=== PATIENT | female | born 1995 | race Caucasian/White ===

== ENCOUNTER 2018-04-22 23:08 | Emergency (ER) | payer SELFPAY ==
[2018-04-22 23:08] VITALS: BP 110/56; PULSE 56; RESP 20; TEMP 36.8; O2SAT 99; BMI 28.5
--- NOTE | 2018-04-22 23:21 | ED.VISSUMM ---
- ER Visit Summary Date of Service: 04/22/18 Chief Complaint: Abscess, wound check History of Present Illness: The patient is a 22 F L for worsening erythema around the abscess today. States started out as mosquito bite, scratching it. This started 4 days ago. Saw the urgent care today status post incision and drainage. States there was a lot of pus. She states wound cultures were collected. As outlined. She started on Keflex and Bactrim. She is taking 2 doses of each. States had a fever 101 at urgent care. Was told if redness past the lines to go to the ED for evaluation. No previous similar symptoms. Patient is not a diabetic. No immunosuppressants. Denies IV drug use. No history of similar. States still draining. No fevers since initially evaluated. Did take Tylenol and Motrin at around 4 PM, 7 hours ago. Physical Examination: General: Alert and oriented ?3, no acute distress HEENT: Normocephalic, atraumatic. Moist mucosa membranes Neck: supple, nontender. Cardiovascular: Regular rate and rhythm, no murmurs Respiratory: Normal breath sounds, symmetric, no distress Abdomen: Soft, nontender, nondistended Extremities: Nontender, no edema, pulses intact ?4 Neuro: no focal neurological deficits. Skin: Left hip: Straight incision noted, no active drainage. Erythema past the initial line. Proximal 10 x 8 cm. No streaking. Test Results: WBC 18. Creatinine 1.01. Emergency Department Course and Treatment: Patient nontoxic. Afebrile. There is worsening erythema from incision and drainage. I did check labs, she given 1 dose of vancomycin. White count was 18. She did have slight red man syndrome from the vancomycin. There is no lip or tongue swelling. Symptoms resolved. Reevaluation slight erythema past the inferior aspect of the line. Nothing superior. Patient nontoxic. No risk factors. Discussed with patient and mother, appropriate to continue medicines for another day, if symptoms worsen becomes febrile to return for reevaluation and expect admission at that time. Patient understands and agrees with plan. Declined any additional pain medicines. Should continue Tylenol and Motrin. All questions were answered. Treatment Plan: [] Disposition: Discharge Impression: 1. Left hip cellulitis 2. Wound check This note was generated with [employer] software. It may contain incorrect words, spelling, and punctuation that were not noted in review of the chart prior to signing ED Disposition - Plan for ED Patient: Disposition: Home or Assisted Living Chief Complaint: Abscess Diagnosis: Cellulitis of left hip, Encounter for evaluation of wound Instructions: ED Infec Skin Cellulitis Referrals: Ty Krause MD [Primary Care Provider] - 2 Days for wound check Additional Instructions: Continue your current antibiotics. Fevers develop or worsening redness moving upwards, return for reevaluation.
[2018-04-22 23:50] LABS: Absolute Lymphocyte Count 1.82 X10^3/ul (0.83-4.51); Absolute Neutrophil Count 13.8 X10^3/uL (2.0-7.7); Basophil# 0.05 X10^3/uL; Basophil% 0.3 % (0-1); Eosinophils% 0.6 % (0-5); Hematocrit 41.3 % (37-47); Hemoglobin 13.7 g/dl (12.0-15.0); Lymphocyte # 1.82 X10^3/ul (4.0); Lymphocyte % 10.1 % (19-41); Mean Corp Hgb Conc 33.2 g/gl (32-36); Mean Corpuscular Hgb 28.4 pg (27.0-32.0); Mean Corpuscular Volume 85.5 fL (81-99); Mean Platelet Vol. 9.7 fl (6.2-12.0); Monocyte# 2.18 X10^3/uL; Monocyte% 12.1 % (0-10); Neutrophil # 13.78 X10^3/uL (2.7-7.7); Neutrophil % 76.6 % (47-70); Platelet Count 267 K/mm3 (150-450); RBC Distribution Width CV 13.4 % (11.6-14.6); RBC Distribution Width SD 41.9 fl (35.1-43.9); Red Blood Count 4.83 M/mm3 (4.2-5.4)
[2018-04-22 23:52] LABS: Differential Indicated SCAN CRITERIA MET; POSITIVE COUNT NO; POSITIVE DIFFERENTIAL YES; POSITIVE MORPHOLOGY NO
[2018-04-23 00:01] LABS: Anion Gap 9 (5-15); BUN 22 mg/dL (7-18); BUN/Creat Ratio 21.8 RATIO (10-20); Calcium,Total 8.8 mg/dL (8.5-10.1); Chloride 103 mmol/L (98-107); Creatinine, Serum 1.01 mg/dL (0.55-1.02); Differential Comment SCANNED; EST Glomerular Filtration Rate 72 mL/min (>60); Est Glom Filt Rate - Afr Amer 88 mL/min (>60); Estimated Creatinine Clearance 72.27 ml/min; Glucose 104 mg/dL (74-106); Potassium 3.6 mmol/L (3.5-5.1); Sodium Level 137 mmol/L (136-145)
[2018-04-23 02:13] VITALS: BP 110/62; PULSE 83; RESP 16; O2SAT 99
[2018-04-24 08:05] LABS: Pathologist Review Reviewed
== END 2018-04-23 02:13 | disposition home or self-care (01) ==
PROVIDERS: Emergency Provider Emergency Medicine; Family Provider Family Medicine; PCP Family Medicine
DX: L03.116 Cellulitis of left lower limb (principal)
CPT/HCPCS: 80048; 85025; 96365; 96366; 99283; J7030

== ENCOUNTER 2018-04-23 19:04 | Inpatient (IN) | payer SELFPAY ==
[2018-04-23 19:04] VITALS: BP 119/63; PULSE 81; RESP 20; TEMP 36.8; O2SAT 98; BMI 28.3
[2018-04-23] MEDS: 0.9% Normal Saline 1,000 ML 150 ML IV (19:39)
[2018-04-23 19:50] LABS: Absolute Lymphocyte Count 1.56 X10^3/ul (0.83-4.51); Absolute Neutrophil Count 7.6 X10^3/uL (2.0-7.7); Basophil# 0.06 X10^3/uL; Basophil% 0.6 % (0-1); Eosinophil# 0.17 X10^3/uL; Eosinophils% 1.6 % (0-5); Hematocrit 39.2 % (37-47); Hemoglobin 13.1 g/dl (12.0-15.0); Lymphocyte # 1.56 X10^3/ul (4.0); Lymphocyte % 14.7 % (19-41); Mean Corp Hgb Conc 33.4 g/gl (32-36); Mean Corpuscular Hgb 28.5 pg (27.0-32.0); Mean Corpuscular Volume 85.2 fL (81-99); Mean Platelet Vol. 10.1 fl (6.2-12.0); Monocyte# 1.17 X10^3/uL; Neutrophil # 7.63 X10^3/uL (2.7-7.7); Neutrophil % 71.8 % (47-70); Platelet Count 247 K/mm3 (150-450); RBC Distribution Width CV 13.3 % (11.6-14.6); RBC Distribution Width SD 41.1 fl (35.1-43.9); White Blood Count 10.6 K/mm3 (4.4-11.0)
[2018-04-23 19:56] VITALS: BMI 28.3
[2018-04-23 19:59] LABS: POSITIVE COUNT NO; POSITIVE DIFFERENTIAL NO; POSITIVE MORPHOLOGY NO
[2018-04-23 20:08] LABS: Anion Gap 8 (5-15); BUN 17 mg/dL (7-18); BUN/Creat Ratio 17.7 RATIO (10-20); Calcium,Total 8.8 mg/dL (8.5-10.1); Chloride 105 mmol/L (98-107); Creatinine, Serum 0.96 mg/dL (0.55-1.02); EST Glomerular Filtration Rate 77 mL/min (>60); Est Glom Filt Rate - Afr Amer 93 mL/min (>60); Estimated Creatinine Clearance 76.04 ml/min; Glucose 90 mg/dL (74-106); Sodium Level 137 mmol/L (136-145)
--- NOTE | 2018-04-23 20:14 | PCM.HP.STD ---
Problem List (1) Cellulitis of the left lateral thigh Status: Acute History of Present Illness Date of Admission: 04/23/18 Chief Complaint: Cellulitis of the left lateral thigh The patient is a 22 year old F who was seen in the emergency room at [facility] with chief complaint of increased redness over an area of cellulitis that she had diagnosed and seen her PCP on 04/22/18. Patient stated that she noticed pain in the area over her left lateral thigh the day before, she went to urgent care on 04/22/2018 and at that time the area over her left lateral thigh was reddened and tender to palpation, a nurse practitioner working at the urgent care performed incision and drainage of the area and got cultures. She was placed on Keflex and Bactrim, the area became more painful and she was seen in the emergency room last night and given IV vancomycin. Today she states the reddened area over her left lateral thigh has enlarged, she denies any fevers or chills. Evaluation in the emergency room revealed a normal white blood cell count, patient is afebrile, chemistry profile is unremarkable. Examination of the left lateral thigh area reveals a large area of redness over her left lateral thigh, central to this area is a draining small incision, there is serosanguineous drainage noted on her bandage. The area is tender to palpation but there is minimal induration of the entire area. Patient will be admitted for cellulitis of the left thigh, she will be placed on IV Ancef, emergency room physician gave the patient IV clindamycin. The patient's culture should be available from [facility] tomorrow, I will do a nasal screen for MRSA tonight. 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 Lives: With Family Smoking Status: Never smoker Tobacco Use: Non-smoker Alcohol: None Drugs: None - *Family History Maternal History Items: Cancer - of breast cancer Paternal History Items: Heart Disease Review of Systems Constitutional: Denies: Anorexia, Chills, Fever, Night Sweats, Malaise, Weakness, Weight Change, Fatigue Eyes: Denies: Blurred vision, Cataracts, Conjunctivae Inflammation, Double vision HEENT: Denies: Difficulty Hearing, Difficulty Swallowing, Dysphasia, Ear Pain, Eye Pain, Hearing Changes, Nasal bleeding, Nasal Congestion, Post Nasal Drip Cardiovascular: Denies: Chest Pain, Claudication, Chest Pressure, Chest Tightness, Edema Respiratory: Denies: Cough, Hemoptysis, Pleuritic Pain, Shortness of Breath Gastrointestinal: Denies: Abdominal Pain, Constipation, Diarrhea, Dyspepsia Genitourinary: Denies: Dysuria, Frequency, Hematuria Gynecological: Denies: Breast symptoms Musculoskeletal: Denies: Back Pain, Foot Pain, Hand Pain, Joint stiffness, Joint Tenderness Skin: Reports: Rash - Patient complains of a rash over her left lateral thigh, Wounds - Admits to small puncture wound on the left thigh from yesterday's I&D Neurological: Denies: Balance problems, Blurred vision, Double vision, Change in Speech, Difficulty swallowing, Focal weakness, Headaches, Incoordination Psychiatric: Denies: Anxiety, Depression Endocrine: Denies: Change in Body Habitus, Heat/ Cold Intolerance, Polydipsia, Polyuria VTE Information - Inpt Only VTE Present on Admission: No VTE Mechan Device Prophylaxis: None VTE Pharm Prophylaxis ordered?: No Reason prophylaxis not ordered:: Treatment Not Indicated - low risk for VTE Patient Problems: Active and Suspected Problems Cellulitis of the left lateral thigh (Acute) - Physical Exam General: Alert, Oriented x3, Cooperative, No apparent distress, Well developed, Well nourished HEENT: Atraumatic, PERRLA, EOMI, Normocephalic Oral: Moist Mucosa Neck: Supple, No JVD, No Nuchal Rigidity, Trachea Midline, Thyroid Normal Size and Texture Lungs: Clear to auscultation, Normal air movement, No rhonchi, No wheeze, No rales Cardiovascular: Regular rate, Regular Rhythm, Normal S1, Normal S2, No murmurs, No Ectopic Activity, PMI Normal, No rub noted, No Gallop Abdomen: Bowel Sounds Present, Soft, Non Tender, Non-Distended, No hernias noted Extremities: No clubbing, No cyanosis, No edema, Capillary Refill Less than 3 Seconds Skin: Ulcer/ Wound - There is a small puncture wound present over the patient's left lateral thigh area, this is draining serosanguineous fluid, - - There is a large area of rash over the patient's left lateral thigh area-this area is approximately 10 cm in length by 6 cm in diameter, the area is not indurated Musculoskeletal: No Tenderness to Palpation of Joints or Extremities Neurological: Cranial nerves II-XII grossly intact, Neuro grossly intact, Sensory exam intact to light touch and pain, Coordination normal Psych/Mental Status: Normal Affect, Appropriate, Alert and oriented to time, place, person, mood and affect Vital Signs Temp Pulse Resp BP Pulse Ox 98.2 F 81 20 H 119/63 98 04/23/18 19:04 04/23/18 19:04 04/23/18 19:04 04/23/18 19:04 04/23/18 19:04 Oxygen Delivery Method Room Air Weight: 72.575 kg Body Mass Index (BMI) 28.3 Laboratory Tests Past 24 Hrs 04/23/18 04/23/18 04/23/18 19:39 19:39 19:39 WBC 10.6 RBC 4.60 Hgb 13.1 Hct 39.2 MCV 85.2 MCH 28.5 MCHC 33.4 RDW 13.3 RDW Differential 41.1 Plt Count 247 MPV 10.1 Immature Gran % (Auto) 0.300 Neut % (Auto) 71.8 H Lymph % (Auto) 14.7 L [place] % (Auto) 11.0 H Eos % (Auto) 1.6 Baso % (Auto) 0.6 Absolute Neuts (auto) 7.6 Absolute Lymphs (auto) 1.56 Total Counted Not Reportable Sodium 137 Potassium 4.0 Chloride 105 Carbon Dioxide 24.0 Anion Gap 8 BUN 17 Creatinine 0.96 Estim Creat Clear Calc 76.04 Est GFR (MDRD) Af Amer 93 Est GFR (MDRD) Non-Af 77 BUN/Creatinine Ratio 17.7 Glucose 90 Calcium 8.8 Serum , Qual Pending Assessment/Plan All Active Problems Cellulitis of left hip (Acute) Encounter for evaluation of wound (Acute) Cellulitis of the left lateral thigh (Acute) #1 cellulitis of the left thigh-probably either secondary to MSSA or strep-patient will be admitted to medical surgical floor, she will be given IV Ancef, cultures to be available tomorrow from her outpatient urgent care. Patient will have nasal swab for MRSA, if this is positive, antibiotics may need to be changed. Code Visit Inpatient E&M: 12803 Init Hosp L3
--- NOTE | 2018-04-23 20:19 | ED.VISSUMM ---
- ER Visit Summary Date of Service: 04/23/18 Chief Complaint: Abscess History of Present Illness: The patient is a 22 F with a bug bite to her left proximal thigh approximately 5 days ago. She was seen at urgent care yesterday morning where an I&D was performed, culture sent, and she was started on Bactrim and Keflex. Patient was seen in the ER last night due to worsening redness and was given a dose of IV vancomycin. Per documentation patient developed diffuse erythema after the vancomycin which did resolve with stopping the antibiotic. Patient continued her Bactrim and Keflex today but the erythema that is previously been outlined has continued to spread. She is advised to return for IV antibiotics and admission. Patient has noted fever throughout this illness but states she feels that that is improving today as well. Physical Examination: Vital signs are unremarkable. Patient is afebrile at 98.2. Patient is in no acute distress and nontoxic appearing. Heart is regular rate and rhythm. No lung sounds are clear. Abdomen is soft nontender. Left thigh examination reveals a 1 cm incision of the proximal thigh with mild drainage. There is 20 x 22 cm area of surrounding cellulitis. Test Results: CBC was a white count of 10.6 with 72% neutrophils. This is improved from a white count of 18 last night. Chemistry studies are unremarkable. Emergency Department Course and Treatment: Patient is given a dose of IV clindamycin here. She will be admitted for IV antibiotics. Treatment Plan: [] Disposition: Admit Impression: Cellulitis left thigh This note was generated with [employer] dictation software. It may contain incorrect words, spelling, and punctuation that were not noted in review of the chart prior to signing ED Disposition - Plan for ED Patient: Chief Complaint: Abscess Referrals: Ty Krause MD [Primary Care Provider] -
--- NOTE | 2018-04-23 20:23 | HP.PCM_ITS ---
Problem List (1) Cellulitis of the left lateral thigh Status: Acute History of Present Illness Date of Admission: 04/23/18 Chief Complaint: Cellulitis of the left lateral thigh The patient is a 22 year old F who was seen in the emergency room at [facility] with chief complaint of increased redness over an area of cellulitis that she had diagnosed and seen her PCP on 04/22/18. Patient stated that she noticed pain in the area over her left lateral thigh the day before, she went to urgent care on 04/22/2018 and at that time the area over her left lateral thigh was reddened and tender to palpation, a nurse practitioner working at the urgent care performed incision and drainage of the area and got cultures. She was placed on Keflex and Bactrim, the area became more painful and she was seen in the emergency room last night and given IV vancomycin. Today she states the reddened area over her left lateral thigh has enlarged, she denies any fevers or chills. Evaluation in the emergency room revealed a normal white blood cell count, patient is afebrile, chemistry profile is unremarkable. Examination of the left lateral thigh area reveals a large area of redness over her left lateral thigh, central to this area is a draining small incision, there is serosanguineous drainage noted on her bandage. The area is tender to palpation but there is minimal induration of the entire area. Patient will be admitted for cellulitis of the left thigh, she will be placed on IV Ancef, emergency room physician gave the patient IV clindamycin. The patient's culture should be available from [facility] tomorrow, I will do a nasal screen for MRSA tonight. 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 Lives: With Family Smoking Status: Never smoker Tobacco Use: Non-smoker Alcohol: None Drugs: None - *Family History Maternal History Items: Cancer - of breast cancer Paternal History Items: Heart Disease Review of Systems Constitutional: Denies: Anorexia, Chills, Fever, Night Sweats, Malaise, Weakness , Weight Change, Fatigue Eyes: Denies: Blurred vision, Cataracts, Conjunctivae Inflammation, Double vision HEENT: Denies: Difficulty Hearing, Difficulty Swallowing, Dysphasia, Ear Pain, Eye Pain, Hearing Changes, Nasal bleeding, Nasal Congestion, Post Nasal Drip Cardiovascular: Denies: Chest Pain, Claudication, Chest Pressure, Chest Tightness, Edema Respiratory: Denies: Cough, Hemoptysis, Pleuritic Pain, Shortness of Breath Gastrointestinal: Denies: Abdominal Pain, Constipation, Diarrhea, Dyspepsia Genitourinary: Denies: Dysuria, Frequency, Hematuria Gynecological: Denies: Breast symptoms Musculoskeletal: Denies: Back Pain, Foot Pain, Hand Pain, Joint stiffness, Joint Tenderness Skin: Reports: Rash - Patient complains of a rash over her left lateral thigh, Wounds - Admits to small puncture wound on the left thigh from yesterday's I&D Neurological: Denies: Balance problems, Blurred vision, Double vision, Change in Speech, Difficulty swallowing, Focal weakness, Headaches, Incoordination Psychiatric: Denies: Anxiety, Depression Endocrine: Denies: Change in Body Habitus, Heat/ Cold Intolerance, Polydipsia, Polyuria VTE Information - Inpt Only VTE Present on Admission: No VTE Mechan Device Prophylaxis: None VTE Pharm Prophylaxis ordered?: No Reason prophylaxis not ordered:: Treatment Not Indicated - low risk for VTE Patient Problems: Active and Suspected Problems Cellulitis of the left lateral thigh (Acute) - Physical Exam General: Alert, Oriented x3, Cooperative, No apparent distress, Well developed, Well nourished HEENT: Atraumatic, PERRLA, EOMI, Normocephalic Oral: Moist Mucosa Neck: Supple, No JVD, No Nuchal Rigidity, Trachea Midline, Thyroid Normal Size and Texture Lungs: Clear to auscultation, Normal air movement, No rhonchi, No wheeze, No rales Cardiovascular: Regular rate, Regular Rhythm, Normal S1, Normal S2, No murmurs, No Ectopic Activity, PMI Normal, No rub noted, No Gallop Abdomen: Bowel Sounds Present, Soft, Non Tender, Non-Distended, No hernias noted Extremities: No clubbing, No cyanosis, No edema, Capillary Refill Less than 3 Seconds Skin: Ulcer/ Wound - There is a small puncture wound present over the patient's left lateral thigh area, this is draining serosanguineous fluid, - - There is a large area of rash over the patient's left lateral thigh area-this area is approximately 10 cm in length by 6 cm in diameter, the area is not indurated Musculoskeletal: No Tenderness to Palpation of Joints or Extremities Neurological: Cranial nerves II-XII grossly intact, Neuro grossly intact, Sensory exam intact to light touch and pain, Coordination normal Psych/Mental Status: Normal Affect, Appropriate, Alert and oriented to time, place, person, mood and affect Vital Signs Temp Pulse Resp BP Pulse Ox 98.2 F 81 20 H 119/63 98 04/23/18 19:04 04/23/18 19:04 04/23/18 19:04 04/23/18 19:04 04/23/18 19:04 Oxygen Delivery Method Room Air Weight: 72.575 kg Body Mass Index (BMI) 28.3 Laboratory Tests Past 24 Hrs 04/23/18 04/23/18 04/23/18 19:39 19:39 19:39 WBC 10.6 RBC 4.60 Hgb 13.1 Hct 39.2 MCV 85.2 MCH 28.5 MCHC 33.4 RDW 13.3 RDW Differential 41.1 Plt Count 247 MPV 10.1 Immature Gran % (Auto) 0.300 Neut % (Auto) 71.8 H Lymph % (Auto) 14.7 L [place] % (Auto) 11.0 H Eos % (Auto) 1.6 Baso % (Auto) 0.6 Absolute Neuts (auto) 7.6 Absolute Lymphs (auto) 1.56 Total Counted Not Reportable Sodium 137 Potassium 4.0 Chloride 105 Carbon Dioxide 24.0 Anion Gap 8 BUN 17 Creatinine 0.96 Estim Creat Clear Calc 76.04 Est GFR (MDRD) Af Amer 93 Est GFR (MDRD) Non-Af 77 BUN/Creatinine Ratio 17.7 Glucose 90 Calcium 8.8 Serum , Qual Pending Assessment/Plan All Active Problems Cellulitis of left hip (Acute) Encounter for evaluation of wound (Acute) Cellulitis of the left lateral thigh (Acute) #1 cellulitis of the left thigh-probably either secondary to MSSA or strep- patient will be admitted to medical surgical floor, she will be given IV Ancef, cultures to be available tomorrow from her outpatient urgent care. Patient will have nasal swab for MRSA, if this is positive, antibiotics may need to be changed. Code Visit Inpatient E&M: 33845 Init Hosp L3
[2018-04-23] MEDS: Clindamycin 600 MG/50 ML BAG 100 MG IV (20:39)
[2018-04-23 20:47] LABS: Pregnancy, Serum, hCG Quali. NEGATIVE Negative (0-9 Nonpreg)
[2018-04-23 21:03] VITALS: BMI 29.0
[2018-04-23 21:12] VITALS: BP 99/61; PULSE 92; RESP 16; TEMP 36.9; O2SAT 100
[2018-04-23] MEDS: Cefazolin 2 GM in 0.9% Normal Saline 100 ML IV (22:47)
[2018-04-24 00:14] LABS: Probe Check PASS
[2018-04-24 00:16] LABS: M R Staph aureus DNA By PCR POSITIVE (Negative)
[2018-04-24] MEDS: Acetaminophen 325 MG Tablet 650 MG PO ×2 (02:32→18:53)
[2018-04-24 02:40] VITALS: BP 103/60; PULSE 85; RESP 14; TEMP 36.7; O2SAT 100
[2018-04-24 08:15] VITALS: BP 97/57; PULSE 82; RESP 16; TEMP 36.6; O2SAT 97
--- NOTE | 2018-04-24 09:26 | NURSING ---
Melissa wound nurse notified of consult
--- NOTE | 2018-04-24 10:20 | PCM.PROGNOTE ---
Patient Problems: Active and Suspected Problems Cellulitis of the left lateral thigh (Acute) Subjective: Chief complaint: Follow-up after admission for left lateral cellulitis due to infected bug bite. Patient seen and examined. No acute events overnight. She complains of mild pain at the left lateral thigh but improved. Swelling and erythema of the left lateral thigh is getting slightly better. Denies fever chills. Her vital signs are stable. - Physical Exam General: Alert, Oriented x3, Cooperative, No apparent distress HEENT: Atraumatic, PERRLA, EOMI, Normocephalic Oral: Moist Mucosa, No Gingival or Mucosal Lesions/ Ulcerations Neck: Supple, No JVD, Negative Carotid Bruits, Trachea Midline, Thyroid Normal Size and Texture Lungs: Clear to auscultation, Normal air movement, No rhonchi, No wheeze, No rales Cardiovascular: Regular rate, Regular Rhythm, Normal S1, Normal S2, No murmurs Abdomen: Bowel Sounds Present, Soft, Non Tender, Non-Distended, No Hepato-splenomegaly Extremities: No clubbing, No cyanosis, No edema Skin: No rashes, Ulcer/ Wound - Left lateral thigh: Small wound measuring about 0.5 x 0.5 cm surrounded by large area of erythema and mild swelling, pus is coming out. Lymphatic: No Cervical, Supraclavicular, or Inguinal Adenopathy Neurological: Cranial nerves II-XII grossly intact, Motor Exam 5/5 strength throughout Psych/Mental Status: Normal Affect, Appropriate, Alert and oriented to time, place, person, mood and affect Vital Signs Temp Pulse Resp BP Pulse Ox 97.9 F 82 16 97/57 L 97 04/24/18 08:15 04/24/18 08:15 04/24/18 08:15 04/24/18 08:15 04/24/18 08:15 Oxygen Delivery Method Room Air Weight: 163 lb 12.855 oz Body Mass Index (BMI) 29.0 Intake and Output for Last 24 Hours 04/22/18 04/23/18 04/24/18 23:59 23:59 23:59 Intake Total 400 / 400 Balance 400 / 400 Laboratory Tests Past 24 Hrs 04/23/18 21:55 MRSA (PCR) POSITIVE H Medical Necessity - Tobacco Use Smoking Status: Never smoker Tobacco Use: Non-smoker Assessment/Plan All Active Problems Cellulitis of the left lateral thigh (Acute) This is a 22 years old female patient admitted because of worsening left lateral thigh pain, erythema and swelling after she had bug bite few days ago, failed outpatient therapy with Bactrim and Keflex and she was admitted for acute left lateral thigh cellulitis and infected wound. #1 acute left lateral thigh cellulitis/infected bug bite: Without evidence of sepsis or severe sepsis. She is on IV clindamycin. Her vital signs are stable, afebrile. No leukocytosis, routine blood work was unremarkable. Patient was on Keflex and Bactrim 2 days before admission without improvement. Her MRSA screen is positive. She had wound culture done at the urgent care [facility]. She still having pus coming out of the wound, erythema and swelling surrounding the wound is slightly improved. Plan: Continue IV clindamycin, repeat wound culture, obtain wound culture results from urgent care, wound care nurse consult. #2 DVT prophylaxis: Low risk patient, no prophylaxis indicated. This note was generated with [employer] dictation software. It may contain incorrect words, spelling, and punctuation that were not noted in checking the note before signing. Code Visit Inpatient E&M: 64029 Subs Hosp L2
--- NOTE | 2018-04-24 10:25 | PN_ITS ---
Patient Problems: Active and Suspected Problems Cellulitis of the left lateral thigh (Acute) Subjective: Chief complaint: Follow-up after admission for left lateral cellulitis due to infected bug bite. Patient seen and examined. No acute events overnight. She complains of mild pain at the left lateral thigh but improved. Swelling and erythema of the left lateral thigh is getting slightly better. Denies fever chills. Her vital signs are stable. - Physical Exam General: Alert, Oriented x3, Cooperative, No apparent distress HEENT: Atraumatic, PERRLA, EOMI, Normocephalic Oral: Moist Mucosa, No Gingival or Mucosal Lesions/ Ulcerations Neck: Supple, No JVD, Negative Carotid Bruits, Trachea Midline, Thyroid Normal Size and Texture Lungs: Clear to auscultation, Normal air movement, No rhonchi, No wheeze, No rales Cardiovascular: Regular rate, Regular Rhythm, Normal S1, Normal S2, No murmurs Abdomen: Bowel Sounds Present, Soft, Non Tender, Non-Distended, No Hepato- splenomegaly Extremities: No clubbing, No cyanosis, No edema Skin: No rashes, Ulcer/ Wound - Left lateral thigh: Small wound measuring about 0.5 x 0.5 cm surrounded by large area of erythema and mild swelling, pus is coming out. Lymphatic: No Cervical, Supraclavicular, or Inguinal Adenopathy Neurological: Cranial nerves II-XII grossly intact, Motor Exam 5/5 strength throughout Psych/Mental Status: Normal Affect, Appropriate, Alert and oriented to time, place, person, mood and affect Vital Signs Temp Pulse Resp BP Pulse Ox 97.9 F 82 16 97/57 L 97 04/24/18 08:15 04/24/18 08:15 04/24/18 08:15 04/24/18 08:15 04/24/18 08:15 Oxygen Delivery Method Room Air Weight: 163 lb 12.855 oz Body Mass Index (BMI) 29.0 Intake and Output for Last 24 Hours 04/22/18 04/23/18 04/24/18 23:59 23:59 23:59 Intake Total 400 / 400 Balance 400 / 400 Laboratory Tests Past 24 Hrs 04/23/18 21:55 MRSA (PCR) POSITIVE H Medical Necessity - Tobacco Use Smoking Status: Never smoker Tobacco Use: Non-smoker Assessment/Plan All Active Problems Cellulitis of the left lateral thigh (Acute) This is a 22 years old female patient admitted because of worsening left lateral thigh pain, erythema and swelling after she had bug bite few days ago, failed outpatient therapy with Bactrim and Keflex and she was admitted for acute left lateral thigh cellulitis and infected wound. #1 acute left lateral thigh cellulitis/infected bug bite: Without evidence of sepsis or severe sepsis. She is on IV clindamycin. Her vital signs are stable , afebrile. No leukocytosis, routine blood work was unremarkable. Patient was on Keflex and Bactrim 2 days before admission without improvement. Her MRSA screen is positive. She had wound culture done at the urgent care [facility]. She still having pus coming out of the wound, erythema and swelling surrounding the wound is slightly improved. Plan: Continue IV clindamycin, repeat wound culture , obtain wound culture results from urgent care, wound care nurse consult. #2 DVT prophylaxis: Low risk patient, no prophylaxis indicated. This note was generated with [employer] dictation software. It may contain incorrect words, spelling, and punctuation that were not noted in checking the note before signing. Code Visit Inpatient E&M: 14991 Subs Hosp L2
--- NOTE | 2018-04-24 11:17 | CASEMGMT ---
Social Work Note SW met with pt as pt is listed is self pay. SW introduced self and role at [facility]. Pt is alert and orientated x4. Pt states that she lives with her family and friends and that she was previously independent with ADLs. Pt confirms that she doesn't have insurance and is interested in filling out Medicaid Application. SW provided pt with Medicaid Application and informed pt that if she fills out application while she is still in hospital this worker can fax application to S. Pt states understanding. Pt states that her plan is to return home at discharge and denied additional needs or concerns. Plan: Return home at discharge Cristina Zheng STEEL ANALYST, OUTCOMES ANALYST
[2018-04-24 14:18] VITALS: BP 106/59; PULSE 81; RESP 16; TEMP 36.8; O2SAT 97
[2018-04-24 21:58] VITALS: BP 105/86; PULSE 85; RESP 16; TEMP 36.9; O2SAT 99
[2018-04-25] MEDS: 0.9% NaCl Peripheral Flush Adult/Peds IV (05:54)
[2018-04-25 05:56] VITALS: BP 98/46; PULSE 81; RESP 16; TEMP 36.7; O2SAT 98
--- NOTE | 2018-04-25 09:05 | PCM.DC ---
- Discharge Diagnoses Current Active Problems: Current Active and Chronic Problems Cellulitis of the left lateral thigh (Acute) You will use the following diet at home:: Regular Your food should be the consistency of: Regular Discharge Activity: Return to Normal Activity Call your doctor if your incision/area has: Sudden Increased Bleeding, Increased Redness, Foul Smelling Discharge, Swelling at the incision site Call your doctor if you observe: Fever of 101 or Higher, Shortness of breath, Dizziness, Fainting spells, Chest pain, Increased palpitations (irregular heartbeat), Uncontrolled pain Additional Instructions: 1- change the dressing twice daily for the next 2-3 days then once daily. 2- use Tylenol or ibuprofen as needed for pain. Allergies/Adverse Reactions: Allergies fluticasone [From Flovent Diskus] Allergy (Verified 04/23/18 19:07) Hives milk Adverse Reaction (Verified 04/23/18 21:08) abdominal pain Medications to take at Discharge Clindamycin [Cleocin] 450 mg PO TID #60 cap 04/25/18 The following prescriptions were given: Clindamycin [Cleocin] 450 mg PO TID #60 cap Primary Care Physician: Ty Krause MD [Primary Care Provider] - Please follow up with your Primary Care Physician in: this coming week.
[2018-04-25 09:32] VITALS: BP 113/67; PULSE 95; RESP 20; TEMP 36.4; O2SAT 97
--- NOTE | 2018-04-25 09:51 | PCM.DC ---
- Discharge Diagnoses Current Active Problems: Current Active and Chronic Problems Cellulitis of the left lateral thigh (Acute) You will use the following diet at home:: Regular Your food should be the consistency of: Regular Discharge Activity: Return to Normal Activity Weight Bearing Status: Full weight bearing Call your doctor if your incision/area has: Sudden Increased Bleeding, Increased Redness, Foul Smelling Discharge, Swelling at the incision site Call your doctor if you observe: Fever of 101 or Higher, Shortness of breath, Dizziness, Fainting spells, Chest pain, Increased palpitations (irregular heartbeat), Uncontrolled pain Allergies/Adverse Reactions: Allergies fluticasone [From Flovent Diskus] Allergy (Verified 04/23/18 19:07) Hives milk Adverse Reaction (Verified 04/23/18 21:08) abdominal pain Medications to take at Discharge Amox/Clavulanate Tablet [Augmentin Tablet] 875 mg PO Q12H #10 tab 04/25/18 Doxycycline 100 mg PO BID #14 cap 04/25/18 The following prescriptions were given: Amox/Clavulanate Tablet [Augmentin Tablet] 875 mg PO Q12H #10 tab Doxycycline 100 mg PO BID #14 cap Primary Care Physician: Ty Krause MD [Primary Care Provider] - Please follow up with your Primary Care Physician in: this coming week.
[2018-04-25 11:20] VITALS: BP 127/71; PULSE 95; RESP 20; TEMP 36.8; O2SAT 97
--- NOTE | 2018-04-25 13:10 | CASEMGMT ---
Social Work Obtained completed medicaid application and faxed to [employer]. Cathi GROSSMAN, DEPARTMENT CLINICIAN
--- NOTE | 2018-04-25 16:11 | PCM.DC.SUM ---
Discharge Date and Diagnosis Date of Admission: 04/23/18 Date of Discharge: 04/25/18 - Primary Discharge Diagnosis Staph aureus acute left lateral thigh cellulitis/infected bug bite. Hospital Course and Treatment Consultations 04/24/18 09:15 Consult: Onc/Wound/linux programmer Routine Comment: Operations: None Procedures: None Summary of Care Provided: Patient seen and examined on the day of discharge and appeared to be stable to be discharged home. She has no significant complaints and she remained afebrile. Erythema and swelling of the left lateral thigh is improving. Her vital signs are stable. - Physical Exam General: Alert, Oriented x3, Cooperative, No apparent distress. HEENT: Atraumatic, PERRLA, EOMI. Neck: Supple, No JVD, Negative Carotid Bruits, Trachea Midline, Thyroid Normal. Lungs: Clear to auscultation, Normal air movement, No rhonchi, No wheeze, No rales. Cardiovascular: Regular rate, Regular Rhythm, Normal S1, Normal S2, PMI Normal. Abdomen: Bowel Sounds Present, Soft, Non Tender, Non-Distended, No Hepato-splenomegaly. Extremities: No clubbing, No cyanosis, No edema Skin: No rashes, wound of the incision and drainage on the left lateral thigh measuring about 0.5 x 0.5 cm, surrounded erythema, improving. Neurological: Neuro grossly intact Vital Signs are stable. Hospital course: The patient is a 22 year old F admitted because of worsening left lateral thigh erythema, pain and swelling few days after she had a bug bite. She was found to have acute staph aureus left lateral thigh cellulitis/infected bug bite. Before admission, she went to urgent care where she had simple bedside incision and drainage and she was sent home on Keflex and Bactrim. She came to the hospital because of worsening erythema and swelling of the left lateral thigh as well as pain. Her routine blood work was unremarkable and she had no leukocytosis. Her vital signs are stable throughout admission and she remained afebrile. She was treated with IV clindamycin and erythema and swelling of the left lateral thigh improved. MRSA screen was positive. She had wound culture done at the urgent care which was not red yesterday as I had the charge nurse of [place] [id number] to call the urgent care. Wound culture done during this hospital stay and revealed staph aureus, final is pending. Patient discharged home in a stable medical condition, discharged on doxycycline for 7 days and Augmentin for 5 days, recommended to change the wound dressing with dry sterile dressing twice a day for the next 3 days and then once a day, recommended follow-up with PCP in 1 week Discharge Activity: Return to Normal Activity Weight Bearing Status: Full weight bearing Call your doctor if your incision/area has: Sudden Increased Bleeding, Increased Redness, Foul Smelling Discharge, Swelling at the incision site Call your doctor if you observe: Fever of 101 or Higher, Shortness of breath, Dizziness, Fainting spells, Chest pain, Increased palpitations (irregular heartbeat), Uncontrolled pain Home Medications: Medications to take at Discharge Amox/Clavulanate Tablet [Augmentin Tablet] 875 mg PO Q12H #10 tab 04/25/18 Doxycycline 100 mg PO BID #14 cap 04/25/18 Following Prescrptions Were Given to Patient: Amox/Clavulanate Tablet [Augmentin Tablet] 875 mg PO Q12H #10 tab Doxycycline 100 mg PO BID #14 cap Primary Care Physician: Ty Krause MD [Primary Care Provider] - Please follow up with your Primary Care Physician in: this coming week. Disposition: Home Minutes spent on discharge:: 26 Patient Condition:: Stable Medical Necessity - Tobacco Use Smoking Status: Never smoker Tobacco Use: Non-smoker Meaningful Use Info Meaningful Use Diagnoses (Choose all that apply): None applicable
--- NOTE | 2018-04-25 16:16 | DS.PCM_ITS ---
Discharge Date and Diagnosis Date of Admission: 04/23/18 Date of Discharge: 04/25/18 - Primary Discharge Diagnosis Staph aureus acute left lateral thigh cellulitis/infected bug bite. Hospital Course and Treatment Consultations 04/24/18 09:15 Consult: Onc/Wound/billet recorder Routine Comment: Operations: None Procedures: None Summary of Care Provided: Patient seen and examined on the day of discharge and appeared to be stable to be discharged home. She has no significant complaints and she remained afebrile. Erythema and swelling of the left lateral thigh is improving. Her vital signs are stable. - Physical Exam General: Alert, Oriented x3, Cooperative, No apparent distress. HEENT: Atraumatic, PERRLA, EOMI. Neck: Supple, No JVD, Negative Carotid Bruits, Trachea Midline, Thyroid Normal. Lungs: Clear to auscultation, Normal air movement, No rhonchi, No wheeze, No rales. Cardiovascular: Regular rate, Regular Rhythm, Normal S1, Normal S2, PMI Normal. Abdomen: Bowel Sounds Present, Soft, Non Tender, Non-Distended, No Hepato- splenomegaly. Extremities: No clubbing, No cyanosis, No edema Skin: No rashes, wound of the incision and drainage on the left lateral thigh measuring about 0.5 x 0.5 cm, surrounded erythema, improving. Neurological: Neuro grossly intact Vital Signs are stable. Hospital course: The patient is a 22 year old F admitted because of worsening left lateral thigh erythema, pain and swelling few days after she had a bug bite. She was found to have acute staph aureus left lateral thigh cellulitis/infected bug bite. Before admission, she went to urgent care where she had simple bedside incision and drainage and she was sent home on Keflex and Bactrim. She came to the hospital because of worsening erythema and swelling of the left lateral thigh as well as pain. Her routine blood work was unremarkable and she had no leukocytosis. Her vital signs are stable throughout admission and she remained afebrile. She was treated with IV clindamycin and erythema and swelling of the left lateral thigh improved. MRSA screen was positive. She had wound culture done at the urgent care which was not red yesterday as I had the charge nurse of [place] [phone] to call the urgent care. Wound culture done during this hospital stay and revealed staph aureus, final is pending. Patient discharged home in a stable medical condition, discharged on doxycycline for 7 days and Augmentin for 5 days, recommended to change the wound dressing with dry sterile dressing twice a day for the next 3 days and then once a day, recommended follow-up with PCP in 1 week Discharge Activity: Return to Normal Activity Weight Bearing Status: Full weight bearing Call your doctor if your incision/area has: Sudden Increased Bleeding, Increased Redness, Foul Smelling Discharge, Swelling at the incision site Call your doctor if you observe: Fever of 101 or Higher, Shortness of breath, Dizziness, Fainting spells, Chest pain, Increased palpitations (irregular heartbeat), Uncontrolled pain Home Medications: Medications to take at Discharge Amox/Clavulanate Tablet [Augmentin Tablet] 875 mg PO Q12H #10 tab 04/25/18 Doxycycline 100 mg PO BID #14 cap 04/25/18 Following Prescrptions Were Given to Patient: Amox/Clavulanate Tablet [Augmentin Tablet] 875 mg PO Q12H #10 tab Doxycycline 100 mg PO BID #14 cap Primary Care Physician: Ty Krause MD [Primary Care Provider] - Please follow up with your Primary Care Physician in: this coming week. Disposition: Home Minutes spent on discharge:: 26 Patient Condition:: Stable Medical Necessity - Tobacco Use Smoking Status: Never smoker Tobacco Use: Non-smoker Meaningful Use Info Meaningful Use Diagnoses (Choose all that apply): None applicable
== END 2018-04-25 11:34 | disposition home or self-care (01) | DRG 603 ==
LOC: ED 20:02 → MS3 20:20
PROVIDERS: Admitting Provider Internal Medicine; Emergency Provider Emergency Medicine; Family Provider Family Medicine; PCP Family Medicine; Visit Provider Hospitalist
DX: L03.116 Cellulitis of left lower limb (principal); S70.362A Insect bite (nonvenomous), left thigh, initial encounter; W57.XXXA Bitten or stung by nonvenomous insect and other nonvenomous arthropods, initial encounter
CPT/HCPCS: 80048; 84703; 85025; 87070; 87077; 87186; 87205; 87641; 97802; 99282; J7030; A4216

== ENCOUNTER → 2018-09-25 11:53 | Outpatient (CLI) | payer SELFPAY ==
--- NOTE | 2018-09-25 | BRBX_PTH ---
PATIENT: LEONA MORRELL LOC: [facility] U#:[id number] AGE/SX: 30/F ROOM: RE09/25/[address]: Dr. Brant Meléndez MD : 1995 BED: DIS: SPEC #: [id number] RECD: 09/28/18 11:51 STATUS: [place] BLAZE #: [id number] MICHAEL: 09/25/18 00:[address]: Brant Meléndez DEPT: SURGICAL PATHOLOGY RECD BY: Dianna Barrios ENTERED: 09/28/18 15:43 SP TYPE: BREAST BX OTHR DR: Dr. Ty Krause MD Tissues: Right breast, NOS Procedures: Surgery Specimen Level IV HEADER OPERATION: Ultrasound-guided right needle core biopsy PRE-OP DIAGNOSIS: Abnormal mammogram TISSUE SUBMITTED: Right breast biopsy MICROSCOPIC DIAGNOSIS Right breast, ultrasound-guided needle core biopsy: Fibroadenoma. Negative for atypia or malignancy. SJ:alicja 09/29/18 COMMENT Correlation with clinical, radiologic findings and appropriate follow up are necessary. MICROSCOPIC DESCRIPTION Slides are reviewed. GROSS DESCRIPTION Received is one container labeled with the patient's name and not further designated. The specimen consists of a single elongated fragment of adler-white soft tissue that measures 1.4 x 0.1 x 0.1 cm. The specimen is totally submitted in one cassette. / AM:alicja 09/28/18 TC:1 CPT: 32306
--- OUTSIDE RECORDS SUMMARY | 2018-11-21 18:11 | XMS RPT_ITS ---
:1995 Author Organization OHIP Care Team Providers Name Role Phone ZEESHAN KAUFFMAN III Attending Unavailable LYNDA SHEN (FEATHER SHAPER) Attending Unavailable RUPINDER MARLEY Attending Unavailable RUPINDER MARLEY Attending Unavailable SHADI ESCOBAR) Referring Unavailable SHADI ESCOBAR) Referring Unavailable SHADI ESCOBAR) Attending Unavailable ROGELIO BERNAL (FISH RECEIVER) Referring Unavailable LYNDA SHEN (FEATHER SHAPER) Attending Unavailable LITA ASCENCIO (CNM) Referring Unavailable STACY CUEVAS (CNM) Attending Unavailable LITA ASCENCIO (CNM) Attending Unavailable Hal Paige Attending Unavailable Elderbrock, Ty Primary Care Unavailable Elderbrock, Ty Primary Care Unavailable Tereletsky, Ty Admitting Unavailable Ashelfah, Ghasem Attending Unavailable Tereletsky, Ty Admitting Unavailable Tereletsky, Ty Attending Unavailable Elderbrock, Ty Primary Care Unavailable Tereletsky, Ty Consulting Unavailable Tereletsky, Ty Admitting Unavailable Ashelfah, Ghasem Attending Unavailable Elderbrock, Ty Primary Care Unavailable Ashelfah, Ghasem Consulting Unavailable Tereletsky, Ty Admitting Unavailable Ashelfah, Ghasem Attending Unavailable Elderbrock, Ty Primary Care Unavailable Ashelfah, Ghasem Consulting Unavailable Rupinder Marley Attending Unavailable Rupinder Marley Referring Unavailable Elderbrock, Ty Primary Care Unavailable PROBLEMS PROBLEMS DATE TYPE CONDITION / CODE ATTENDING STATUS SOURCE 09/15/2018 Active Unspecified lump NA Active [facility] in the left [place] breast, Repository unspecified quadrant / N63.20(ICD-10) 09/15/2018 Active Mastodynia / NA Active [facility] N64.4(ICD-10) [place] Repository 08/14/2018 Active Dysuria / NA Active [facility] R30.0(ICD-10) [place] Repository 08/14/2018 Active Glycosuria / NA Active [facility] R81(ICD-10) [place] Repository 04/28/2018 Active Unknown / LYNDA SHEN Active [facility] UNK(Unknown) (FEATHER SHAPER) [place] Repository PROCEDURES PROCEDURES No Procedure Records FoundRESULTS RESULTS Observed: 10/06/2018 Status: F Source: [place] BACT/CAND VAG GRM ST 10:56 AM [facility] REPOSITORY Sp. Request/Comment: - Swab Smear Result - BACTERIAL VAGINOSIS RESULT: Stain results consistent with normal vaginal delmy. Rare --> ABNORMAL ALERT Budding yeast --> ABNORMAL ALERT Performed By: #### BVCNSM #### [facility] [address] [place] [id number] PROGRESS Observed: 10/06/2018 Status: COMPLETED Source: [place] 9:22 AM [facility] REPOSITORY HNO ID: [id number] Author: Lynda Shen Service: (none) Author Type: Nurse Practitioner Type: Progress Notes Filed: 10/06/2018 10:49 AM Note Text: Leona Morrell is a 23 year old female who presents for vaginal pruritis and discharge for 1 day. She would like to also to discuss control to help with PMS and period control. Vaginal discharge: scant amount and white. Itching: YES Dyspareunia: No Fever/chills: No Abdominal pain: No Bladder: Negative for dysuria or frequency Bowel: No blood in stool, pain with BM, tarry stool, persistent diarrhea or constipation Any new sexual partners or concern for STD exposure: No Are you currently taking any medications to treat vaginitis: No Do you use feminine sprays, douches or deodorants: No Menstrual cycle: cycles every 35-41 days and 7 days of flow Contraception: none Past medical, surgical, social history, medications and allergies reviewed and updated. OBJECTIVE: BP 98/60 Wt 160 lb (72.6kg) LMP 09/02/2018 GENERAL: Well developed, well nourished in no apparent distress ABDOMEN: soft, non-tender and no masses PELVIC: external genitalia normal, normal Bartholin's glands, urethra, Deaver's glands, no vulvar lesions, no cervical lesions, good vaginal support, physiologic discharge present, normal appearing perineal body and perianal region, well estrogenized, yellow/white yeast like discharge noted ASSESSMENT/PLAN: [facility] Office Visit on 10/06/18 -Norethindrone Acet-Ethinyl Est (JUNE,) 1-20 mg- mcg per tablet -fluconazole (DIFLUCAN) 150 mg tablet -metroNIDAZOLE (FLAGYL) 500 mg tablet STD screening: Declined STD check. B/O BV negative BVC sent Any new medications given to the patient have been explained as to directions, reasons for prescribing and side effects. Perineal hygeine and safe sex were discussed with the patient. -pt is going out of town tomorrow ATB order for her take with her and I will call if she needs to start it -Follow up for OCP check in 3-4 months Lynda Shen APRN.BREANA KNOXOV Observed: 10/06/2018 Status: COMPLETED Source: [place] 9:15 AM [facility] Office Visit (WOOB) LEONA MORRELL ([id number]) 1995 F Date Time Provider Department 10/06/18 9:15 AM LYNDA SHEN (BREANA) WOOB During your visit today, we recorded the following information about you: Blood pressure Weight Last Period 98/60 72.6 kg 09/02/18 Lynda Shen APRN.FEATHER SHAPER 10/06/2018 10:49 AM Signed Leona Minh Morrell is a 23 year old female who presents for vaginal pruritis and discharge for 1 day. She would like to also to discuss control to help with PMS and period control. Vaginal discharge: scant amount and white. Itching: YES Dyspareunia: No Fever/chills: No Abdominal pain: No Bladder: Negative for dysuria or frequency Bowel: No blood in stool, pain with BM, tarry stool, persistent diarrhea or constipation Any new sexual partners or concern for STD exposure: No Are you currently taking any medications to treat vaginitis: No Do you use feminine sprays, douches or deodorants: No Menstrual cycle: cycles every 35-41 days and 7 days of flow Contraception: none Past medical, surgical, social history, medications and allergies reviewed and updated. OBJECTIVE: BP 98/60 Wt 160 lb (72.6kg) LMP 09/02/2018 GENERAL: Well developed, well nourished in no apparent distress ABDOMEN: soft, non-tender and no masses PELVIC: external genitalia normal, normal Bartholin's glands, urethra, Deaver's glands, no vulvar lesions, no cervical lesions, good vaginal support, physiologic discharge present, normal appearing perineal body and perianal region, well estrogenized, yellow/white yeast like discharge noted ASSESSMENT/PLAN: [facility] Office Visit on 10/06/18 -Norethindrone Acet-Ethinyl Est (JUNEL 1/20, 21,) 1-20 mg- mcg per tablet -fluconazole (DIFLUCAN) 150 mg tablet -metroNIDAZOLE (FLAGYL) 500 mg tablet STD screening: Declined STD check. B/O BV negative BVC sent Any new medications given to the patient have been explained as to directions, reasons for prescribing and side effects. Perineal hygeine and safe sex were discussed with the patient. -pt is going out of town tomorrow ATB order for her take with her and I will call if she needs to start it -Follow up for OCP check in 3-4 months LAMINE Sagastume APRN.CNP 10/06/2018 10:06 AM Signed Oral Contraceptives: The Pill Beginning the Pill Pills come in either a 21 day pack or a 28 day pack. With the 21 day pack you will take one pill for 21 days then no pill for 7 days, during which time you will have what is known as withdrawal bleeding. The 28 day pack allows you to take a pill every day of the cycle with no interruptions. The first 21 pills are the pills with the active ingredients and the last 7 are the nonmedical pills (placebo) or they may contain iron. There will be bleeding during the week you are taking the nonmedical pills. The advantage to the 28 day pack is that you don?t have to keep track of when you stopped the pill. ? Unless otherwise instructed, you should start your pills the Friday following your first day of bleeding with your next period (if your period starts on a Friday, you should start pills the same day) ? Read your information packet that comes with the pills. Pill Benefits The pill is the most popular method of reversible control being used today. Millions of women rely on oral contraceptives as their control method. It is important to have an examination by your physician to determine if the pill is safe for you. There are several advantages associated with the pill: it is 97-98% effective; may improve acne; periods are more regular and less painful; there is less iron deficiency anemia in pill users. green ware caster use is associated with a decreased incidence of ovarian and uterine cancer. There is also no evidence that the pill increases the incidence of any cancer. How Oral Contraceptives Work Oral contraceptives come in two varieties. One is the combination pill which contains both estrogen and progesterone. Combination pills are considered 98-99% effective in preventing . This pill comes in either monophasic, which delivers the same amount of estrogen and progesterone throughout the cycle; and triphasic, which try tries to mimic the normal hormone cycle by changing the levels of the hormones in the pills during the month. There is no real advantage to taking the one over the other. The other type of pill only contains progesterone. It is best used for women who can?t take estrogen. This type of pill is slightly less effective than the combination pill in preventing . Oral contraceptives prevent ovulation (release of an egg from the ovary) by suppressing the pituitary gland?s action. The pill does NOT prevent sexually transmitted disease. Obtaining a Prescription ? It is important to see your doctor before starting oral contraceptives so that you can have a full medical history taken and a physical examination given. Certain medical conditions may make the pill inappropriate for you, therefore it is very important to be honest and as complete as possible with the information you share with your doctor. The types of predisposing factors which would make the pill a poor choice of control would include: ? History of blood clots ? Stroke ? Serious liver disease or impaired liver function ? Unexplained vaginal bleeding or ? Cancer of the reproductive system ? Active gall bladder disease ? Hypertension Possible Side Effects It can take up to three months for your body to become adjusted to the pill. The more common side effects experienced at this time are: breakthrough spotting or bleeding, which is bleeding at any other time other than when you should be having a period; nausea or vomiting; breast tenderness; and mild fluid retention. There is no shelter weight gain with the use of the pill. Breakthrough bleeding is the most common complaint of new pill users. There is no way to predict who will have it and there is no way of preventing it. Breakthrough bleeding usually subsides on its own with no further treatment after the first three months of taking the pill. If these symptoms continue to occur after the first three months you should check with your physician to see if there is any physical cause and possibly change to another control pill. Problems: 1. Missed 1 pill: Take 2 pills the next day. 2. Missed 2 pills: Take 2 pills the next day and 2 pills the following day. Also use another form of control (condoms) along with the pill for the rest of the month. 3. Missed 3 or more pills: You have two choices. You can take two pills each day until you are on schedule, plus use an additional form of control along with the pill for the rest of the month. Or you can stop the pill and start a completely new pack of pills the next Friday. You must use another form of control with the pill for at least the first two weeks of the new pack. 4. You?re ill and you have been vomiting or have diarrhea: You must use another form of control with the pill since the pill may not be fully absorbed during your illness. Continue to use the added control until the end of the cycle. 5. Desire to become : Stop using the pill for one month before trying to become . 6. Taking other medications: The control pill is less effective when you take the antibiotic Rifampin, epilepsy (seizure) drugs such as phenytoin, carbamazepine, phenobarbital, topiramate and some medications for HIV. Let your doctor know if you start taking any of these medications while on the pill. Symptoms to Notify Your Doctor with Immediately: 1. Pain in your chest or legs 2. Continuous blurred vision 3. Severe headaches 4. Slurred speech 5. Tingling or weakness on one side of your body 6. Shortness of breath 7. Swelling of one leg Refills of Control Pills You need to see a doctor every year for a refill of your prescription. This is necessary in order that your health can be monitored closely while you are taking control pills. If your prescription should before your next scheduled appointment you can usually get a one month extension from your doctors office if you call during regular business hours about one week before you need to start the new package of pills. This allows the physician to refer to your chart for necessary health information. Lynda Shen APRN.FEATHER SHAPER 10/06/2018 10:53 AM Signed Addended by: LYNDA SHEN on: 10/06/2018 10:53 AM Modules accepted: Orders Referring Provider: SELF [[id number]] Allergies As of Date: 10/06/2018 Noted Allergy Reaction FLOVENT (FLUTICASONE PROPIONATE) 03/05/2012 9 - Itching Date Reviewed: 10/06/2018 Reviewed by: Jo Bagley LPN - Fully Assessed Reason for Visit: Discussion [[id number]] Cmt: yeast infection and irregular menses Primary Visit Diagnosis:Encounter for initial prescription of contraceptive pills [Z30.011] Other Visit Diagnoses:Yeast vaginitis [B37.3] Vaginal irritation [N89.8] Order(s):Norethindrone Acet-Ethinyl Est (,) 1-20 mg-mcg per tabletTake 1 tablet by mouth once daily.Disp: 1 PackageRfl: 3 fluconazole (DIFLUCAN) 150 mg tabletTake 1 tablet by mouth one time only for 1 dose.Disp: 1 tabletRfl: 0 metroNIDAZOLE (FLAGYL) 500 mg tabletTake 1 tablet by mouth twice daily for 7 days.Disp: 14 tabletRfl: 0 RAPID BV B/O [[id number]] Order #: [id number] BACT/MICHAEL VAG GRAM STAIN [SQBVCNSM] Order #: [id number] FUTURE Prescriptions as of 10/06/2018 Sig: FLUCONAZOLE 150 MG TABLET Take 1 tablet by mouth one ti* PROBIOTIC ORAL Take by mouth. 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 With the 21 day pack you will take one pill for 21 days then no pill for 7 days, during which time you will have what is known as withdrawal bleeding. The 28 day pack allows you to take a pill every day of the cycle with no interruptions. The first 21 pills are the pills with the active ingredients and the last 7 are the nonmedical pills (placebo) or they may contain iron. There will be bleeding during the week you are taking the nonmedical pills. The advantage to the 28 day pack is that you don?t have to keep track of when you stopped the pill. ? Unless otherwise instructed, you should start your pills the Friday following your first day of bleeding with your next period (if your period starts on a Friday, you should start pills the same day) ? Read your information packet that comes with the pills. Pill Benefits The pill is the most popular method of reversible control being used today. Millions of women rely on oral contraceptives as their control method. It is important to have an examination by your physician to determine if the pill is safe for you. There are several advantages associated with the pill: it is 97-98% effective; may improve acne; periods are more regular and less painful; there is less iron deficiency anemia in pill users. residential use is associated with a decreased incidence of ovarian and uterine cancer. There is also no evidence that the pill increases the incidence of any cancer. How Oral Contraceptives Work Oral contraceptives come in two varieties. One is the combination pill which contains both estrogen and progesterone. Combination pills are considered 98-99% effective in preventing . This pill comes in either monophasic, which delivers the same amount of estrogen and progesterone throughout the cycle; and triphasic, which try tries to mimic the normal hormone cycle by changing the levels of the hormones in the pills during the month. There is no real advantage to taking the one over the other. The other type of pill only contains progesterone. It is best used for women who can?t take estrogen. This type of pill is slightly less effective than the combination pill in preventing . Oral contraceptives prevent ovulation (release of an egg from the ovary) by suppressing the pituitary gland?s action. The pill does NOT prevent sexually transmitted disease. Obtaining a Prescription ? It is important to see your doctor before starting oral contraceptives so that you can have a full medical history taken and a physical examination given. Certain medical conditions may make the pill inappropriate for you, therefore it is very important to be honest and as complete as possible with the information you share with your doctor. The types of predisposing factors which would make the pill a poor choice of control would include: ? History of blood clots ? Stroke ? Serious liver disease or impaired liver function ? Unexplained vaginal bleeding or ? Cancer of the reproductive system ? Active gall bladder disease ? Hypertension Possible Side Effects It can take up to three months for your body to become adjusted to the pill. The more common side effects experienced at this time are: breakthrough spotting or bleeding, which is bleeding at any other time other than when you should be having a period; nausea or vomiting; breast tenderness; and mild fluid retention. There is no shelter weight gain with the use of the pill. Breakthrough bleeding is the most common complaint of new pill users. There is no way to predict who will have it and there is no way of preventing it. Breakthrough bleeding usually subsides on its own with no further treatment after the first three months of taking the pill. If these symptoms continue to occur after the first three months you should check with your physician to see if there is any physical cause and possibly change to another control pill. Problems: 1. Missed 1 pill: Take 2 pills the next day. 2. Missed 2 pills: Take 2 pills the next day and 2 pills the following day. Also use another form of control (condoms) along with the pill for the rest of the month. 3. Missed 3 or more pills: You have two choices. You can take two pills each day until you are on schedule, plus use an additional form of control along with the pill for the rest of the month. Or you can stop the pill and start a completely new pack of pills the next Friday. You must use another form of control with the pill for at least the first two weeks of the new pack. 4. You?re ill and you have been vomiting or have diarrhea: You must use another form of control with the pill since the pill may not be fully absorbed during your illness. Continue to use the added control until the end of the cycle. 5. Desire to become : Stop using the pill for one month before trying to become . 6. Taking other medications: The control pill is less effective when you take the antibiotic Rifampin, epilepsy (seizure) drugs such as phenytoin, carbamazepine, phenobarbital, topiramate and some medications for HIV. Let your doctor know if you start taking any of these medications while on the pill. Symptoms to Notify Your Doctor with Immediately: 1. Pain in your chest or legs 2. Continuous blurred vision 3. Severe headaches 4. Slurred speech 5. Tingling or weakness on one side of your body 6. Shortness of breath 7. Swelling of one leg Refills of Control Pills You need to see a doctor every year for a refill of your prescription. This is necessary in order that your health can be monitored closely while you are taking control pills. If your prescription should before your next scheduled appointment you can usually get a one month extension from your doctors office if you call during regular business hours about one week before you need to start the new package of pills. This allows the physician to refer to your chart for necessary health information. Prescriptions ordered this encounter Disp Refills Start End NORETHINDRONE ACETATE 1 MG-ETHINYL E* 1 Pa* 3 10/06/2018 Route: ORAL Sig: Take 1 tablet by mouth once daily. FLUCONAZOLE 150 MG TABLET 1 ta* 0 10/06/2018 10/06/2018 Route: ORAL Sig: Take 1 tablet by mouth one time only for 1 dose. METRONIDAZOLE 500 MG TABLET 14 t* 0 10/06/2018 10/13/2018 Route: ORAL Sig: Take 1 tablet by mouth twice daily for 7 days. Medications Discontinued During This Encounter sertraline (ZOLOFT) 50 mg tablet 30 t* 2 08/28/2018 10/06/2018 Route: ORAL Sig: Take 1 tablet by mouth once daily. Disc: Reason for discontinue is not on file. Encounter Status:Closed by LYNDA SHEN on 10/06/18 PROGRESS Observed: 09/29/2018 Status: COMPLETED Source: [place] 7:40 PM [facility] [place] REPOSITORY HNO ID: [id number] Author: Rupinder Marley Service: (none) Author Type: Physician Type: Progress Notes Filed: 09/29/2018 7:43 PM Note Text: FOLLOW UP VISIT - POST RIGHT ULTRASOUND GUIDED CORE BIOPSY NAME: [facility] NO.: [id number] DATE OF SERVICE: 09/29/2018 : 1995 REFERRING PHYSICIAN: Ty Krause MD The patient is a 23 year old female with a complaint of a palpable breast mass. The patient notes a mass in the upper outer quadrant of her right breast. The patient has noticed this mass for at least a few months. She notes multiple masses in both breasts but the one her right upper outer breast is the one that is most tender. The mass seems to be more tender during the mid part of her menstrual cycle. The patient had bilateral ultrasounds on September 15, 2018 which demonstrated: IMPRESSION: SUSPICIOUS OF MALIGNANCY The oval lesion in the right breast likely represents a fibroadenoma and is at a low suspicion for malignancy. ?An ultrasound guided biopsy is recommended. LIMITED ULTRASOUND OF LEFT BREAST: 09/15/2018 RESULT: No prior exams were available for comparison. ?Color flow and continuous wave Doppler ultrasound of the left breast 1 o'clock and 6 o'clock regions were performed. ?Acevedo scale images of the real-time examination were reviewed. There is 1.4 cm x 0.4 cm lobulated area in the left breast at 6 o'clock in the retroareolar region. ?This lobulated area is hypoechoic. IMPRESSION: PROBABLY BENIGN - SHORT TERM INTERVAL FOLLOW-UP RECOMMENDED The 1.4 cm x 0.4 cm lobulated area in the left breast is probably benign. SUMMARY: Findings and recommendations discussed with the patient. Patient scheduled for a surgical consult. Patrick bravo/cyril:09/15/2018 14:34:40 n County Judge(s): Stacy ?Kimani Malhotra [facility] letter sent: Abnormal ? OVERALL STUDY BIRADS: 4a Suspicious abnormality - low suspicion for malignancy Websphere Consultant: Cyril Transcribe Date/Time: Sep 15 2018 ?1:46P Dictated by : PATRICK GOODWIN, DO This examination was interpreted and the report reviewed and electronically signed by: PATRICK GOODWIN DO on Sep 15 2018 ?2:34PM ?EST Results-Findings * * *Final Report* * * DATE OF EXAM: Sep 15 2018 ?1:58PM ? WRU ? [id number] ?- ?[facility] [employer] BREAST LTD LT ?/ PROCEDURE REASON: multiple diagnoses ?? ? * * * * Physician Interpretation * * * * ?#[id number] - [facility] US BREAST LTD LT #[id number] - [facility] US BREAST LTD RT LIMITED ULTRASOUND OF RIGHT BREAST: 09/15/2018 HISTORY: Multiple Diagnoses Multiple Diagnoses. RESULT: No prior exams were available for comparison. Color flow and real-time ultrasound of the right breast outer aspect were performed. ?Acevedo scale images of the real-time examination were reviewed. There are benign complex cysts right breast at 6, 7, and 11 o'clock. ? Multiple cystic and complex cystic lesions in the right breast probably represent cluster of ducts or fibrocystic changes. There is an oval lesion in the right breast at 11 o'clock anterior depth. ?This oval lesion is hypoechoic. She does not perform a self breast exam routinely. She notes no skin changes. She denies nipple discharge. She notes no axillary masses. Her mother of breast cancer at age 42. She notes no significant breast trauma or breast difficulties in the past. The patient is quite anxious about these abnormal findings on her ultrasound and her tender breast mass given the fact that her mother of breast cancer. The patient has had 0 pregnancies. She has not undergone mammography. Her last menstrual period ended on August 02. Her first menstrual period was at age 9. The patient is being seen by me today at the request of Dr. Escobar for my opinion and advice regarding bilateral breast mass with a right breast fibroadenoma and bilateral breast cysts. I performed a right side ultrasound guided core biopsy And aspiration breast cyst for her abnormal mammogram/ultrasound on September 25, 2018. The pathology returned as: Fibroadenoma The patient notes slight bruising since the procedure. VITALS: There were no vitals taken for this visit. On examination, the right side breast biopsy site is clean, dry, and intact. There is slight bruising of the site. Assessment IMPRESSION: status post ultrasound guided core biopsy for right side breast fibroadenoma and benign breast cyst. PLAN: If Leona notes any problems, she should contact me immediately. I reminded her about the importance of self - breast exam. I recommend she perform monthly self breast exams. If any palpable abnormalities, change in breast exam, or any difficulties are noted, she is to contact my office immediately. I generally recommend follow up unilateral mammogram and ultrasound 6 months following biopsy. We discussed if the patient has continued tenderness or the fibroadenoma is growing, she should return and we will consider scheduling for excision of this site. Otherwise if it remains stable and does not bother her - it is best left alone. 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 Rupinder Marley MD CNOV Observed: 09/29/2018 Status: COMPLETED Source: [place] 3:15 PM [facility] Office Visit (GENSWS) ,LEONA Wilkinson ([id number]) 1995 F Date Time Provider Department 09/29/18 3:15 PM RUPINDER MARLEY During your visit today, we recorded the following information about you: Rupinder Marley MD 09/29/2018 7:43 PM Signed FOLLOW UP VISIT - POST RIGHT ULTRASOUND GUIDED CORE BIOPSY NAME: Leona Morrell CLINIC NO.: [id number] DATE OF SERVICE: 09/29/2018 : 1995 REFERRING PHYSICIAN: Ty Krause MD The patient is a 23 year old female with a complaint of a palpable breast mass. The patient notes a mass in the upper outer quadrant of her right breast. The patient has noticed this mass for at least a few months. She notes multiple masses in both breasts but the one her right upper outer breast is the one that is most tender. The mass seems to be more tender during the mid part of her menstrual cycle. The patient had bilateral ultrasounds on September 15, 2018 which demonstrated: IMPRESSION: SUSPICIOUS OF MALIGNANCY The oval lesion in the right breast likely represents a fibroadenoma and is at a low suspicion for malignancy. ?An ultrasound guided biopsy is recommended. LIMITED ULTRASOUND OF LEFT BREAST: 09/15/2018 RESULT: No prior exams were available for comparison. ?Color flow and continuous wave Doppler ultrasound of the left breast 1 o'clock and 6 o'clock regions were performed. ?Acevedo scale images of the real-time examination were reviewed. There is 1.4 cm x 0.4 cm lobulated area in the left breast at 6 o'clock in the retroareolar region. ?This lobulated area is hypoechoic. IMPRESSION: PROBABLY BENIGN - SHORT TERM INTERVAL FOLLOW-UP RECOMMENDED The 1.4 cm x 0.4 cm lobulated area in the left breast is probably benign. SUMMARY: Findings and recommendations discussed with the patient. Patient scheduled for a surgical consult. Patrick bravo/cyril:09/15/2018 14:34:40 n County Judge(s): Stacy ?[facility] letter sent: Abnormal ? OVERALL STUDY BIRADS: 4a Suspicious abnormality - low suspicion for malignancy Websphere Consultant: Cyril Transcribe Date/Time: Sep 15 2018 ?1:46P Dictated by : PATRICK GOODWIN, DO This examination was interpreted and the report reviewed and electronically signed by: PATRICK GOODWIN, DO on Sep 15 2018 ?2:34PM ?EST Results-Findings * * *Final Report* * * DATE OF EXAM: Sep 15 2018 ?1:58PM ? WRU ? [id number] ?- ?[facility] US BREAST LTD LT ?/ PROCEDURE REASON: multiple diagnoses ?? ? * * * * Physician Interpretation * * * * ?#[id number] - [facility] US BREAST LTD LT #[id number] - [facility] BREAST LTD RT LIMITED ULTRASOUND OF RIGHT BREAST: 09/15/2018 HISTORY: Multiple Diagnoses Multiple Diagnoses. RESULT: No prior exams were available for comparison. Color flow and real-time ultrasound of the right breast outer aspect were performed. ?Acevedo scale images of the real-time examination were reviewed. There are benign complex cysts right breast at 6, 7, and 11 o'clock. ? Multiple cystic and complex cystic lesions in the right breast probably represent cluster of ducts or fibrocystic changes. There is an oval lesion in the right breast at 11 o'clock anterior depth. ?This oval lesion is hypoechoic. She does not perform a self breast exam routinely. She notes no skin changes. She denies nipple discharge. She notes no axillary masses. Her mother of breast cancer at age 42. She notes no significant breast trauma or breast difficulties in the past. The patient is quite anxious about these abnormal findings on her ultrasound and her tender breast mass given the fact that her mother of breast cancer. The patient has had 0 pregnancies. She has not undergone mammography. Her last menstrual period ended on August 02. Her first menstrual period was at age 9. The patient is being seen by me today at the request of Dr. Escobar for my opinion and advice regarding bilateral breast mass with a right breast fibroadenoma and bilateral breast cysts. I performed a right side ultrasound guided core biopsy And aspiration breast cyst for her abnormal mammogram/ultrasound on September 25, 2018. The pathology returned as: Fibroadenoma The patient notes slight bruising since the procedure. VITALS: There were no vitals taken for this visit. On examination, the right side breast biopsy site is clean, dry, and intact. There is slight bruising of the site. Assessment IMPRESSION: status post ultrasound guided core biopsy for right side breast fibroadenoma and benign breast cyst. PLAN: If Leona notes any problems, she should contact me immediately. I reminded her about the importance of self - breast exam. I recommend she perform monthly self breast exams. If any palpable abnormalities, change in breast exam, or any difficulties are noted, she is to contact my office immediately. I generally recommend follow up unilateral mammogram and ultrasound 6 months following biopsy. We discussed if the patient has continued tenderness or the fibroadenoma is growing, she should return and we will consider scheduling for excision of this site. Otherwise if it remains stable and does not bother her - it is best left alone. 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 Rupinder Marley MD Referring Provider: SELF [[id number]] Allergies As of Date: 09/29/2018 Noted Allergy Reaction FLOVENT (FLUTICASONE PROPIONATE) 03/05/2012 9 - Itching Date Reviewed: 09/29/2018 Reviewed by: Rocío Arreguin LPN - Fully Assessed Reason for Visit: Post Op [174] Primary Visit Diagnosis:Lump or mass in breast [N63.0] Other Visit Diagnosis:Fibroadenoma of right breast [D24.1] Prescriptions as of 09/29/2018 Sig: PROBIOTIC ORAL Take by mouth. SERTRALINE 50 MG TABLET Take 1 tablet by mouth once d* Problem List As Of Date 09/29/2018 Noted Resolved DYSMENORRHEA [N94.6] INVALID FOR* Irregular menstrual cycle [N92.6] INVALID FOR*11/17/2013 Acne [L70.9] INVALID FOR* Hyperandrogenism [E28.8] INVALID FOR* Elevated prolactin level [E22.9] INVALID FOR* Levator spasm [M62.838] INVALID FOR* MRSA cellulitis [L03.90, B95.62] INVALID FOR* Follow-up and Disposition History Recorded Encounter Status:Closed by RUPINDER MARLEY MD on 09/29/18 PROGRESS Observed: 09/26/2018 Status: COMPLETED Source: [facility] 7:53 AM [facility] O ID: [id number] Author: Rupinder Marley Service: (none) Author Type: Physician Type: Progress Notes Filed: 09/26/2018 8:13 AM Note Text: HISTORY AND PHYSICAL - BREAST COMPLAINT Leona Wilkinson Repp 1995 REFERRING PHYSICIAN: Shadi Escobar * CHIEF COMPLAINT: Palpable right breast mass HPI: The patient is a 23 year old female with a complaint of a palpable breast mass. The patient notes a mass in the upper outer quadrant of her right breast. The patient has noticed this mass for at least a few months. She notes multiple masses in both breasts but the one her right upper outer breast is the one that is most tender. The mass seems to be more tender during the mid part of her menstrual cycle. The patient had bilateral ultrasounds on September 15, 2018 which demonstrated: IMPRESSION: SUSPICIOUS OF MALIGNANCY The oval lesion in the right breast likely represents a fibroadenoma and is at a low suspicion for malignancy. ?An ultrasound guided biopsy is recommended. LIMITED ULTRASOUND OF LEFT BREAST: 09/15/2018 RESULT: No prior exams were available for comparison. ?Color flow and continuous wave Doppler ultrasound of the left breast 1 o'clock and 6 o'clock regions were performed. ?Acevedo scale images of the real-time examination were reviewed. There is 1.4 cm x 0.4 cm lobulated area in the left breast at 6 o'clock in the retroareolar region. ?This lobulated area is hypoechoic. IMPRESSION: PROBABLY BENIGN - SHORT TERM INTERVAL FOLLOW-UP RECOMMENDED The 1.4 cm x 0.4 cm lobulated area in the left breast is probably benign. SUMMARY: Findings and recommendations discussed with the patient. Patient scheduled for a surgical consult. Patrick bravo/cyril:09/15/2018 14:34:40 n County Judge(s): Stacy ?[facility] letter sent: Abnormal ? OVERALL STUDY BIRADS: 4a Suspicious abnormality - low suspicion for malignancy Websphere Consultant: Cyril Transcribe Date/Time: Sep 15 2018 ?1:46P Dictated by : PATRICK GOODWIN, DO This examination was interpreted and the report reviewed and electronically signed by: PATRICK GOODWIN DO on Sep 15 2018 ?2:34PM ?EST Results-Findings * * *Final Report* * * DATE OF EXAM: Sep 15 2018 ?1:58PM ? WRU ? [id number] ?- ?[facility] BREAST LTD LT ?/ PROCEDURE REASON: multiple diagnoses ?? ? * * * * Physician Interpretation * * * * ?#[id number] - [facility] US BREAST LTD LT #[id number] - [facility] BREAST LTD RT LIMITED ULTRASOUND OF RIGHT BREAST: 09/15/2018 HISTORY: Multiple Diagnoses Multiple Diagnoses. RESULT: No prior exams were available for comparison. Color flow and real-time ultrasound of the right breast outer aspect were performed. ?Acevedo scale images of the real-time examination were reviewed. There are benign complex cysts right breast at 6, 7, and 11 o'clock. ? Multiple cystic and complex cystic lesions in the right breast probably represent cluster of ducts or fibrocystic changes. There is an oval lesion in the right breast at 11 o'clock anterior depth. ?This oval lesion is hypoechoic. She does not perform a self breast exam routinely. She notes no skin changes. She denies nipple discharge. She notes no axillary masses. Her mother of breast cancer at age 42. She notes no significant breast trauma or breast difficulties in the past. The patient is quite anxious about these abnormal findings on her ultrasound and her tender breast mass given the fact that her mother of breast cancer. The patient has had 0 pregnancies. She has not undergone mammography. Her last menstrual period ended on August 02. Her first menstrual period was at age 9. The patient is being seen by me today at the request of Dr. Escobar for my opinion and advice regarding bilateral breast mass with a right breast fibroadenoma and bilateral breast cysts. PAST MEDICAL HISTORY Diagnosis Date - Acne - Anxiety - Depression in high school - Dysmenorrhea - Irregular menses - MRSA cellulitis 04/30/2018 - [facility] - PAST MEDICAL HISTORY OF normal color vision PAST SURGICAL HISTORY Procedure Laterality Date - EXTRACTION ERUPTED TOOTH/EXR 07-20-12 - OTHER 11/25/2012 Sinus surgery; see progress notes Dr. Cullen - PAST SURGICAL HISTORY OF T and A and tongue clipped Current Outpatient Prescriptions: Lactobacillus acidophilus (PROBIOTIC ORAL) Take by mouth. Disp: Rfl: sertraline (ZOLOFT) 50 mg tablet Take 1 tablet by mouth once daily. Disp: 30 tablet Rfl: 2 No current facility-administered medications for this visit. ALLERGIES: Flovent [Fluticasone Propionate] PERSONAL HISTORY: Social History Marital status: Single Spouse name: Years of education: Number of children: 0 Occupational History Occupation Employer Comment Student Social History Main Topics Smoking status: Never Smoker Smokeless tobacco: Never Used Alcohol use: No Drug use: No Sexual activity: No Comment: never SA FAMILY HISTORY: FAMILY HISTORY Problem Relation Age of Onset - Cancer Mother 42 lung/breast primary - - Alcohol/Drug Mother - Hypertension Father - Heart Father [place] - Heart Maternal Grandfather - Stroke Paternal Grandfather REVIEW OF SYMPTOMS: The review of systems data was entered by the nurse and reviewed by me Nursing Notes: Brian Zarate LPN 09/25/2018 2:54 PM Signed REVIEW OF SYSTEMS: General: The patient notes fatigue, denies weight loss, denies weight gain, denies feeling hot, and denies feelings of cold. Eyes: The patient denies glaucoma, denies eye injury/surgery, does not wear glasses or contacts. Ear/Nose/Throat: The patient NOTES allergies, denies hayfever, denies ear infections, and denies bloody noses. Cardiovascular: The patient denies chest pain, denies heart disease, denies high blood pressure,denies cardiac stent, denies prior heart attack, denies irregular heart beat, denies high cholesterol, denies poor circulation, denies heart failure, other cardiac issues, denies claudication, denies cold feet, denies peripheral arterial stent. Respiratory: The patient denies tuberculosis, denies pneumonia, denies frequent cough, denies pulmonary embolism, denies shortness of breath, and denies coughing up blood. Gastrointestinal: The patient denies difficulty swallowing, denies acid reflux, denies ulcers, denies vomiting, denies jaundice/hepatitis, denies gallbladder problems, denies black or tarry stools, denies hemorrhoids, denies bleeding from rectum, denies diverticulitis, denies constipation, denies diarrhea, denies loss of stool control, and denies hernias. Kidney/Bladder: The patient denies kidney stones, denies urine infections, and denies bloody urine. Skin: The patient denies a history of skin cancer, denies bleeding/changing moles, and denies a history of skin rash. Neurologic: The patient denies a history of epilepsy/convulsions, denies headaches, denies head/spinal injuries, and denies stroke/TIA. Psychiatric: The patient denies psychiatric medications, denies depression, and denies voices, denies substance abuse. Endocrine: The patient denies thyroid disorders, denies diabetes, and denies hormonal problems. Hematologic: The patient denies a history of bruising, denies bleeding, and denies anemia, denies blood clots. Infections: The patient denies a history of measles and mumps, denies rheumatic fever, and denies sexually transmitted diseases. Musculoskeletal: The patient NOTES back pain/injury, denies back problems, denies sciatica, denies knee/foot trouble, denies arthritis, or denies gout. When was patient's last Mammogram screening? N/A Last Colonoscopy: N/a Brian Arreguin LPN 09/25/2018 5:25 PM Signed INFORMED CONSENT Leona Wilkinson [facility] Medical Record: [id number] Procedure:us guided right breast biopsy an d aspiration The risks, benefits and anticipated outcomes of the procedure, the risks and benefits of the alternatives to the procedure and the roles and tasks of the personnel to be involved were discussed with the patient and the patient consents to the procedure and agrees to proceed. I verify that I personally obtained Leona Morrell's consent. Rocío Arreguin LPN September 25, 2018 5:17 PM Dept of GENERAL SURGERY [employer]ERSAL [employer]OTOCOL / SAFETY CHECKLIST Procedure to be performed: us guided right breast biopsy and aspiration Sign in Communication: Completed Time Out: Team Confirms the Correct Patient, Correct Procedure, Correct Site and Site Marking, Correct Position (if applicable), Prep and Dry Time (if applicable). Time: 517 pm Affirmation of Time Out: YES Sign Out Discussion: Completed Rocío Arreguin LPN PHYSICAL EXAMINATION: General: The patient is 23 year old female, well nourished, well hydrated in no acute distress. The patient is oriented to time, place, and person. VITALS: There were no vitals taken for this visit. There is no height or weight on file to calculate BMI. HEENT: Normal cephalic, ataumatic, pupils are equally round, sclera are anicteric, mucous membranes are moist, oropharynx is clear. Neck has no masses, asymmetry or lymphadenopathy. Thyroid is unremarkable. Respiratory: Clear to auscultation and percussion. Normal respiratory excursion and pattern. Cardiac: Examination is regular rate and rhythm. Abdominal exam: Soft, nontender, with no palpable masses. No hepatosplenomegaly. No palpable hernias. Rectal exam: exam deferred Extremities: no clubbing, cyanosis or edema. No adenopathy. Breast: Visual inspection reveals no retractions, nipple inversion, or skin changes. Palpation of the right breast reveals no dominant or suspicious masses, but multiple benign-feeling nodules. Palpation of the left breast reveals no dominant or suspicious masses, but multiple benign-feeling nodules. Axillary exam demonstrates no suspicious masses in either the left or right axilla. There is no nipple discharge expressed from either the left or right breast. LABORATORY VALUES: As Noted RADIOLOGIC STUDIES: As Noted Ultrasound images were obtained and reviewed. I note multiple simple-appearing cysts in both breasts along with a smaller fibroadenoma in the left breast and the larger fibroadenoma in the right breast which is the site of the patient's tenderness and her greatest concern. After discussion about biopsy and/or aspiration versus observation. The patient wished to undergo biopsy of the right breast mass and aspiration of at least one of the cysts. PROCEDURE: Ultrasound Guided Core Breast Biopsy, ultrasound guided aspiration of breast cyst-right breast The risks, benefits and anticipated outcomes of the procedure, the risks and benefits of the alternatives to the procedure, and the roles and tasks of the personnel to be involved, were discussed with the patient, and the patient consents to the procedure and agrees to proceed. After explaining the procedure and consent was obtained,Leona was positioned. The abnormality in the right breast at the 11:00 position was identified by ultrasound. Lidocaine was injected in to the skin and a small stab incision was made. The Bard core biopsy needle was inserted into the stab incision and advanced. A core was obtained with ultrasound demonstrating targeting into the lesion. A marker clip was then placed via ultrasound guidance. The same incision site was then used under ultrasound to aspirate 2 breast cysts. The cysts were in the general location of the patient's tenderness and aspirated completely. The fluid was nonsuspicious and discarded. Steristrips were applied to the incision. A bandage was applied to the needle site. Leona tolerated the procedure well. Assessment IMPRESSION: Family history of breast cancer, bilateral benign breast cysts, bilateral fibroadenomas, right tender mass consistent with fibroadenoma status post biopsy PLAN: The patient is to return for results of her ultrasound guided breast biopsy. If the patient notes bleeding from the biopsy site, she is to place pressure on the site. Discomfort from brusing can be managed with an ice pack or non steroidal analegics. The patient was reassured given her multiple breast cysts and the fact that I informed her that a completely disappear with aspiration at these were not a significant concern for her in the future bilaterally. Diagnoses: (N63.0) Lump or mass in breast (primary encounter diagnosis) (N60.01) Solitary cyst of right breast (N60.02) Solitary cyst of left breast My findings have been communicated to Dr. Escobar via shared medical record. Return to Clinic: The patient is instructed to follow-up with me in 4 days. Rupinder Marley MD CNOV Observed: 09/25/2018 Status: COMPLETED Source: [place] 2:50 PM [facility] Office Visit (GENSWS) LEONA MORRELL ([id number]) 1995 F Date Time Provider Department 09/25/18 2:50 PM RUPINDER MARLEY During your visit today, we recorded the following information about you: Brian Zarate SONY 09/25/2018 2:54 PM Signed REVIEW OF SYSTEMS: General: The patient notes fatigue, denies weight loss, denies weight gain, denies feeling hot, and denies feelings of cold. Eyes: The patient denies glaucoma, denies eye injury/surgery, does not wear glasses or contacts. Ear/Nose/Throat: The patient NOTES allergies, denies hayfever, denies ear infections, and denies bloody noses. Cardiovascular: The patient denies chest pain, denies heart disease, denies high blood pressure,denies cardiac stent, denies prior heart attack, denies irregular heart beat, denies high cholesterol, denies poor circulation, denies heart failure, other cardiac issues, denies claudication, denies cold feet, denies peripheral arterial stent. Respiratory: The patient denies tuberculosis, denies pneumonia, denies frequent cough, denies pulmonary embolism, denies shortness of breath, and denies coughing up blood. Gastrointestinal: The patient denies difficulty swallowing, denies acid reflux, denies ulcers, denies vomiting, denies jaundice/hepatitis, denies gallbladder problems, denies black or tarry stools, denies hemorrhoids, denies bleeding from rectum, denies diverticulitis, denies constipation, denies diarrhea, denies loss of stool control, and denies hernias. Kidney/Bladder: The patient denies kidney stones, denies urine infections, and denies bloody urine. Skin: The patient denies a history of skin cancer, denies bleeding/changing moles, and denies a history of skin rash. Neurologic: The patient denies a history of epilepsy/convulsions, denies headaches, denies head/spinal injuries, and denies stroke/TIA. Psychiatric: The patient denies psychiatric medications, denies depression, and denies voices, denies substance abuse. Endocrine: The patient denies thyroid disorders, denies diabetes, and denies hormonal problems. Hematologic: The patient denies a history of bruising, denies bleeding, and denies anemia, denies blood clots. Infections: The patient denies a history of measles and mumps, denies rheumatic fever, and denies sexually transmitted diseases. Musculoskeletal: The patient NOTES back pain/injury, denies back problems, denies sciatica, denies knee/foot trouble, denies arthritis, or denies gout. When was patient's last Mammogram screening? N/A Last Colonoscopy: N/a Brian Arreguin LPN 09/25/2018 5:25 PM Signed INFORMED CONSENT Leona Morrell Medical Record: [id number] Procedure:us guided right breast biopsy an d aspiration The risks, benefits and anticipated outcomes of the procedure, the risks and benefits of the alternatives to the procedure and the roles and tasks of the personnel to be involved were discussed with the patient and the patient consents to the procedure and agrees to proceed. I verify that I personally obtained Leona Morrell's consent. Rocío Arreguin LPN September 25, 2018 5:17 PM Dept of GENERAL SURGERY UNIVERSAL PROTOCOL / SAFETY CHECKLIST Procedure to be performed: us guided right breast biopsy and aspiration Sign in Communication: Completed Time Out: Team Confirms the Correct Patient, Correct Procedure, Correct Site and Site Marking, Correct Position (if applicable), Prep and Dry Time (if applicable). Time: 517 pm Affirmation of Time Out: YES Sign Out Discussion: Completed Rocío Arreguin LPN 09/25/2018 5:18 PM Signed The following instructions are important for you related to your office visit today with the [facility] General Surgeons. Instructions After OFFICE BASED BREAST BIOPSY Please do not take aspirin or other blood thinners for the next few days. After the procedure, Steri-Strips and a dressing will be placed on your small incision. The dressing may be removed in two to three days after the procedure. The Steri-Strips should be left in place until they fall off. If you have bleeding from the biopsy site, hold pressure with a clean gauze. If the bleeding continues, contact our office immediately. I recommend taking Advil or Tylenol for the discomfort. You should wear a comfortable but somewhat tight fitting bra. If you have significant bruising, an ice pack may improve your discomfort. Please make an appointment to return to our office in 4 days. If you note any additional difficulties, questions, or concerns, you should contact our office immediately @ [phone] and ask to be transferred to the General Surgery department. Rupinder Marley MD 09/26/2018 8:13 AM Signed HISTORY AND PHYSICAL - BREAST COMPLAINT Leona Morrell 1995 REFERRING PHYSICIAN: Shadi Escobar * CHIEF COMPLAINT: Palpable right breast mass HPI: The patient is a 23 year old female with a complaint of a palpable breast mass. The patient notes a mass in the upper outer quadrant of her right breast. The patient has noticed this mass for at least a few months. She notes multiple masses in both breasts but the one her right upper outer breast is the one that is most tender. The mass seems to be more tender during the mid part of her menstrual cycle. The patient had bilateral ultrasounds on September 15, 2018 which demonstrated: IMPRESSION: SUSPICIOUS OF MALIGNANCY The oval lesion in the right breast likely represents a fibroadenoma and is at a low suspicion for malignancy. ?An ultrasound guided biopsy is recommended. LIMITED ULTRASOUND OF LEFT BREAST: 09/15/2018 RESULT: No prior exams were available for comparison. ?Color flow and continuous wave Doppler ultrasound of the left breast 1 o'clock and 6 o'clock regions were performed. ?Acevedo scale images of the real-time examination were reviewed. There is 1.4 cm x 0.4 cm lobulated area in the left breast at 6 o'clock in the retroareolar region. ?This lobulated area is hypoechoic. IMPRESSION: PROBABLY BENIGN - SHORT TERM INTERVAL FOLLOW-UP RECOMMENDED The 1.4 cm x 0.4 cm lobulated area in the left breast is probably benign. SUMMARY: Findings and recommendations discussed with the patient. Patient scheduled for a surgical consult. Patrick bravo/cyril:09/15/2018 14:34:40 n County Judge(s): Stacy ?[facility] letter sent: Abnormal ? OVERALL STUDY BIRADS: 4a Suspicious abnormality - low suspicion for malignancy Websphere Consultant: Cyril Transcribe Date/Time: Sep 15 2018 ?1:46P Dictated by : PATRICK GOODWIN, DO This examination was interpreted and the report reviewed and electronically signed by: PATRICK GOODWIN, DO on Sep 15 2018 ?2:34PM ?EST Results-Findings * * *Final Report* * * DATE OF EXAM: Sep 15 2018 ?1:58PM ? WRU ? [id number] ?- ?[facility] US BREAST LTD LT ?/ PROCEDURE REASON: multiple diagnoses ?? ? * * * * Physician Interpretation * * * * ?#[id number] - [facility] US BREAST LTD LT #[id number] - [facility] US BREAST LTD RT LIMITED ULTRASOUND OF RIGHT BREAST: 09/15/2018 HISTORY: Multiple Diagnoses Multiple Diagnoses. RESULT: No prior exams were available for comparison. Color flow and real-time ultrasound of the right breast outer aspect were performed. ?Acevedo scale images of the real-time examination were reviewed. There are benign complex cysts right breast at 6, 7, and 11 o'clock. ? Multiple cystic and complex cystic lesions in the right breast probably represent cluster of ducts or fibrocystic changes. There is an oval lesion in the right breast at 11 o'clock anterior depth. ?This oval lesion is hypoechoic. She does not perform a self breast exam routinely. She notes no skin changes. She denies nipple discharge. She notes no axillary masses. Her mother of breast cancer at age 42. She notes no significant breast trauma or breast difficulties in the past. The patient is quite anxious about these abnormal findings on her ultrasound and her tender breast mass given the fact that her mother of breast cancer. The patient has had 0 pregnancies. She has not undergone mammography. Her last menstrual period ended on August 02. Her first menstrual period was at age 9. The patient is being seen by me today at the request of Dr. Escobar for my opinion and advice regarding bilateral breast mass with a right breast fibroadenoma and bilateral breast cysts. PAST MEDICAL HISTORY Diagnosis Date - Acne - Anxiety - Depression in high school - Dysmenorrhea - Irregular menses - MRSA cellulitis 04/30/2018 - PMH - PAST MEDICAL HISTORY OF normal color vision PAST SURGICAL HISTORY Procedure Laterality Date - EXTRACTION ERUPTED TOOTH/EXR 07-20-12 - OTHER 11/25/2012 Sinus surgery; see progress notes Dr. Cullen - PAST SURGICAL HISTORY OF T and A and tongue clipped Current Outpatient Prescriptions: Lactobacillus acidophilus (PROBIOTIC ORAL) Take by mouth. Disp: Rfl: sertraline (ZOLOFT) 50 mg tablet Take 1 tablet by mouth once daily. Disp: 30 tablet Rfl: 2 No current facility-administered medications for this visit. ALLERGIES: Flovent [Fluticasone Propionate] PERSONAL HISTORY: Social History Marital status: Single Spouse name: Years of education: Number of children: 0 Occupational History Occupation Employer Comment Student Social History Main Topics Smoking status: Never Smoker Smokeless tobacco: Never Used Alcohol use: No Drug use: No Sexual activity: No Comment: never SA FAMILY HISTORY: FAMILY HISTORY Problem Relation Age of Onset - Cancer Mother 42 lung/breast primary - - Alcohol/Drug Mother - Hypertension Father - Heart Father MT - Heart Maternal Grandfather - Stroke Paternal Grandfather REVIEW OF SYMPTOMS: The review of systems data was entered by the nurse and reviewed by me Nursing Notes: Brian Zarate LPN 09/25/2018 2:54 PM Signed REVIEW OF SYSTEMS: General: The patient notes fatigue, denies weight loss, denies weight gain, denies feeling hot, and denies feelings of cold. Eyes: The patient denies glaucoma, denies eye injury/surgery, does not wear glasses or contacts. Ear/Nose/Throat: The patient NOTES allergies, denies hayfever, denies ear infections, and denies bloody noses. Cardiovascular: The patient denies chest pain, denies heart disease, denies high blood pressure,denies cardiac stent, denies prior heart attack, denies irregular heart beat, denies high cholesterol, denies poor circulation, denies heart failure, other cardiac issues, denies claudication, denies cold feet, denies peripheral arterial stent. Respiratory: The patient denies tuberculosis, denies pneumonia, denies frequent cough, denies pulmonary embolism, denies shortness of breath, and denies coughing up blood. Gastrointestinal: The patient denies difficulty swallowing, denies acid reflux, denies ulcers, denies vomiting, denies jaundice/hepatitis, denies gallbladder problems, denies black or tarry stools, denies hemorrhoids, denies bleeding from rectum, denies diverticulitis, denies constipation, denies diarrhea, denies loss of stool control, and denies hernias. Kidney/Bladder: The patient denies kidney stones, denies urine infections, and denies bloody urine. Skin: The patient denies a history of skin cancer, denies bleeding/changing moles, and denies a history of skin rash. Neurologic: The patient denies a history of epilepsy/convulsions, denies headaches, denies head/spinal injuries, and denies stroke/TIA. Psychiatric: The patient denies psychiatric medications, denies depression, and denies voices, denies substance abuse. Endocrine: The patient denies thyroid disorders, denies diabetes, and denies hormonal problems. Hematologic: The patient denies a history of bruising, denies bleeding, and denies anemia, denies blood clots. Infections: The patient denies a history of measles and mumps, denies rheumatic fever, and denies sexually transmitted diseases. Musculoskeletal: The patient NOTES back pain/injury, denies back problems, denies sciatica, denies knee/foot trouble, denies arthritis, or denies gout. When was patient's last Mammogram screening? N/A Last Colonoscopy: N/a Brian Arreguin LPN 09/25/2018 5:25 PM Signed INFORMED CONSENT Leona Wilkinson P[place] Medical Record: [id number] Procedure:us guided right breast biopsy an d aspiration The risks, benefits and anticipated outcomes of the procedure, the risks and benefits of the alternatives to the procedure and the roles and tasks of the personnel to be involved were discussed with the patient and the patient consents to the procedure and agrees to proceed. I verify that I personally obtained Leona Morrell's consent. Rocío Arreguin LPN September 25, 2018 5:17 PM Dept of GENERAL SURGERY UNIVERSAL PROTOCOL / SAFETY CHECKLIST Procedure to be performed: us guided right breast biopsy and aspiration Sign in Communication: Completed Time Out: Team Confirms the Correct Patient, Correct Procedure, Correct Site and Site Marking, Correct Position (if applicable), Prep and Dry Time (if applicable). Time: 517 pm Affirmation of Time Out: YES Sign Out Discussion: Completed Rocío Arreguin LPN PHYSICAL EXAMINATION: General: The patient is 23 year old female, well nourished, well hydrated in no acute distress. The patient is oriented to time, place, and person. VITALS: There were no vitals taken for this visit. There is no height or weight on file to calculate BMI. HEENT: Normal cephalic, ataumatic, pupils are equally round, sclera are anicteric, mucous membranes are moist, oropharynx is clear. Neck has no masses, asymmetry or lymphadenopathy. Thyroid is unremarkable. Respiratory: Clear to auscultation and percussion. Normal respiratory excursion and pattern. Cardiac: Examination is regular rate and rhythm. Abdominal exam: Soft, nontender, with no palpable masses. No hepatosplenomegaly. No palpable hernias. Rectal exam: exam deferred Extremities: no clubbing, cyanosis or edema. No adenopathy. Breast: Visual inspection reveals no retractions, nipple inversion, or skin changes. Palpation of the right breast reveals no dominant or suspicious masses, but multiple benign-feeling nodules. Palpation of the left breast reveals no dominant or suspicious masses, but multiple benign- feeling nodules. Axillary exam demonstrates no suspicious masses in either the left or right axilla. There is no nipple discharge expressed from either the left or right breast. LABORATORY VALUES: As Noted RADIOLOGIC STUDIES: As Noted Ultrasound images were obtained and reviewed. I note multiple simple-appearing cysts in both breasts along with a smaller fibroadenoma in the left breast and the larger fibroadenoma in the right breast which is the site of the patient's tenderness and her greatest concern. After discussion about biopsy and/or aspiration versus observation. The patient wished to undergo biopsy of the right breast mass and aspiration of at least one of the cysts. PROCEDURE: Ultrasound Guided Core Breast Biopsy, ultrasound guided aspiration of breast cyst-right breast The risks, benefits and anticipated outcomes of the procedure, the risks and benefits of the alternatives to the procedure, and the roles and tasks of the personnel to be involved, were discussed with the patient, and the patient consents to the procedure and agrees to proceed. After explaining the procedure and consent was obtained,Leona was positioned. The abnormality in the right breast at the 11:00 position was identified by ultrasound. Lidocaine was injected in to the skin and a small stab incision was made. The [place]uan core biopsy needle was inserted into the stab incision and advanced. A core was obtained with ultrasound demonstrating targeting into the lesion. A marker clip was then placed via ultrasound guidance. The same incision site was then used under ultrasound to aspirate 2 breast cysts. The cysts were in the general location of the patient's tenderness and aspirated completely. The fluid was nonsuspicious and discarded. Steristrips were applied to the incision. A bandage was applied to the needle site. Leona tolerated the procedure well. Assessment IMPRESSION: Family history of breast cancer, bilateral benign breast cysts, bilateral fibroadenomas, right tender mass consistent with fibroadenoma status post biopsy PLAN: The patient is to return for results of her ultrasound guided breast biopsy. If the patient notes bleeding from the biopsy site, she is to place pressure on the site. Discomfort from brusing can be managed with an ice pack or non steroidal analegics. The patient was reassured given her multiple breast cysts and the fact that I informed her that a completely disappear with aspiration at these were not a significant concern for her in the future bilaterally. Diagnoses: (N63.0) Lump or mass in breast (primary encounter diagnosis) (N60.01) Solitary cyst of right breast (N60.02) Solitary cyst of left breast My findings have been communicated to Dr. Escobar via shared medical record. Return to Clinic: The patient is instructed to follow-up with me in 4 days. Rupinder Marley MD Referring Provider: SHADI ESCOBAR) [[id number]] Allergies As of Date: 09/25/2018 Noted Allergy Reaction FLOVENT (FLUTICASONE PROPIONATE) 03/05/2012 9 - Itching Date Reviewed: 09/25/2018 Reviewed by: Rupinder Marley - Fully Assessed Reason for Visit: Consult [173] Cmt: Consult Rt breast mass Primary Visit Diagnosis:Lump or mass in breast [N63.0] Other Visit Diagnoses:Solitary cyst of right breast [N60.01] Solitary cyst of left breast [N60.02] Prescriptions as of 09/25/2018 Sig: PROBIOTIC ORAL Take by mouth. SERTRALINE 50 MG TABLET Take 1 tablet by mouth once d* Medication notes this encounter SERTRALINE 50 MG TABLET >> Brian Zarate LPN 09/25/2018 2:47 PM >> BRIAN ZARATE LPN FriSep 25, 2018 2:47 PM Please D/c Problem List As Of Date 09/25/2018 Noted Resolved DYSMENORRHEA [N94.6] INVALID FOR* Irregular menstrual cycle [N92.6] INVALID FOR*11/17/2013 Acne [L70.9] INVALID FOR* Hyperandrogenism [E28.8] INVALID FOR* Elevated prolactin level [E22.9] INVALID FOR* Levator spasm [M62.838] INVALID FOR* MRSA cellulitis [L03.90, B95.62] INVALID FOR* Other instructions from your clinician: The following instructions are important for you related to your office visit today with the [facility] General Surgeons. Instructions After OFFICE BASED BREAST BIOPSY Please do not take aspirin or other blood thinners for the next few days. After the procedure, Steri-Strips and a dressing will be placed on your small incision. The dressing may be removed in two to three days after the procedure. The Steri-Strips should be left in place until they fall off. If you have bleeding from the biopsy site, hold pressure with a clean gauze. If the bleeding continues, contact our office immediately. I recommend taking Advil or Tylenol for the discomfort. You should wear a comfortable but somewhat tight fitting bra. If you have significant bruising, an ice pack may improve your discomfort. Please make an appointment to return to our office in 4 days. If you note any additional difficulties, questions, or concerns, you should contact our office immediately @ [phone] and ask to be transferred to the General Surgery department. Visit Notes: >> Brian Zarate LPN FriSep 25, 2018 2:53 PM Status: Signed REVIEW OF SYSTEMS: General: The patient notes fatigue, denies weight loss, denies weight gain, denies feeling hot, and denies feelings of cold. Eyes: The patient denies glaucoma, denies eye injury/surgery, does not wear glasses or contacts. Ear/Nose/Throat: The patient NOTES allergies, denies hayfever, denies ear infections, and denies bloody noses. Cardiovascular: The patient denies chest pain, denies heart disease, denies high blood pressure,denies cardiac stent, denies prior heart attack, denies irregular heart beat, denies high cholesterol, denies poor circulation, denies heart failure, other cardiac issues, denies claudication, denies cold feet, denies peripheral arterial stent. Respiratory: The patient denies tuberculosis, denies pneumonia, denies frequent cough, denies pulmonary embolism, denies shortness of breath, and denies coughing up blood. Gastrointestinal: The patient denies difficulty swallowing, denies acid reflux, denies ulcers, denies vomiting, denies jaundice/hepatitis, denies gallbladder problems, denies black or tarry stools, denies hemorrhoids, denies bleeding from rectum, denies diverticulitis, denies constipation, denies diarrhea, denies loss of stool control, and denies hernias. Kidney/Bladder: The patient denies kidney stones, denies urine infections, and denies bloody urine. Skin: The patient denies a history of skin cancer, denies bleeding/changing moles, and denies a history of skin rash. Neurologic: The patient denies a history of epilepsy/convulsions, denies headaches, denies head/spinal injuries, and denies stroke/TIA. Psychiatric: The patient denies psychiatric medications, denies depression, and denies voices, denies substance abuse. Endocrine: The patient denies thyroid disorders, denies diabetes, and denies hormonal problems. Hematologic: The patient denies a history of bruising, denies bleeding, and denies anemia, denies blood clots. Infections: The patient denies a history of measles and mumps, denies rheumatic fever, and denies sexually transmitted diseases. Musculoskeletal: The patient NOTES back pain/injury, denies back problems, denies sciatica, denies knee/foot trouble, denies arthritis, or denies gout. When was patient's last Mammogram screening? N/A Last Colonoscopy: N/a Brian Zarate RIPRAP WORKER >> Rocío Rodríguez CARDOZA Fri Sep 25, 2018 5:17 PM Status: Signed INFORMED CONSENT Leona Morrell Medical Record: [id number] Procedure:us guided right breast biopsy an d aspiration The risks, benefits and anticipated outcomes of the procedure, the risks and benefits of the alternatives to the procedure and the roles and tasks of the personnel to be involved were discussed with the patient and the patient consents to the procedure and agrees to proceed. I verify that I personally obtained Leona Morrell's consent. Rocío Rodríguez CARDOZA September 25, 2018 5:17 PM Dept of GENERAL SURGERY UNIVERSAL PROTOCOL / SAFETY CHECKLIST Procedure to be performed: us guided right breast biopsy and aspiration Sign in Communication: Completed Time Out: Team Confirms the Correct Patient, Correct Procedure, Correct Site and Site Marking, Correct Position (if applicable), Prep and Dry Time (if applicable). Time: 517 pm Affirmation of Time Out: YES Sign Out Discussion: Completed Rocío Arreguin LPN Follow-up and Disposition History Recorded Encounter Status:Closed by RUPNIDER MARLEY MD on 09/26/18 BREAST BIOPSY Observed: 09/25/2018 Status: F Source: [place] ([facility] S[facility]) 12:00 AM [facility] REPOSITORY Patient: LEONA MORRELL : 1995 () Acct Num: [id number] Phys: Rupinder Marley MD Unit Num: [id number] Loc: LABSPEC Specimen: [id number] Received: 09/28/18 - 1151 Spec Type: BREAST BX TISSUES 1 TISSUES: Right breast, NOS COMMENT Correlation with clinical, radiologic findings and appropriate follow up are necessary. GROSS DESCRIPTION Received is one container labeled with the patient's name and not further designated. The specimen consists of a single elongated fragment of adler-white soft tissue that measures 1.4 x 0.1 x 0.1 cm. The specimen is totally submitted in one cassette. / AM:alicja 09/28/18 TC:1 CPT: 35790 HEADER OPERATION: Ultrasound-guided right needle core biopsy PRE-OP DIAGNOSIS: Abnormal mammogram TISSUE SUBMITTED: Right breast biopsy MICROSCOPIC DESCRIPTION Slides are reviewed. MICROSCOPIC DIAGNOSIS Right breast, ultrasound-guided needle core biopsy: Fibroadenoma. Negative for atypia or malignancy. SJ:alicja 09/29/18 Signed Héctor Sandersin 09/29/18 <signature on file> Performed By: #### PBRBX #### [facility] [address], [address] PROGRESS Observed: 09/22/2018 Status: COMPLETED Source: [place] 10:43 AM [facility] REPOSITORY HNO ID: [id number] Author: Marie FoxPt) Tyree Service: (none) Author Type: Physical Therapist Type: Progress Notes Filed: 09/22/2018 10:43 AM Note Text: [facility] PHYSICAL THERAPY DISCONTINUANCE OF CARE Plan of Care Period: Initial Evaluation Date: 04/21/18 Last Visit Date: 04/21/18 Therapy Program: Patient did not return for follow up care as planned. Please refer to last visit note for interventions provided for this episode of care. Assessment: Unable to formally assess goal achievement due to non-compliance with therapy plan of care. Reason for Discontinuation of Care: Patient has not returned to therapy or scheduled additional follow-up appointments. Marie Segura, PT CNCO Observed: 09/15/2018 Status: COMPLETED Source: [place] 2:34 PM [facility] REPOSITORY HNO ID: [id number] Author: Mammography Coordinator Service: (none) Author Type: Physician Type: Letter Filed: 09/16/2018 11:32 PM Note Text: September 15, 2018 PID: [id number] Leona Morrell [id number] [facility] [address] [place] [address] Dear Ms. Morrell, Your recent breast imaging exam on 09/15/2018 showed an abnormal area. At this time we recommend further evaluation. This does not necessarily mean that there is a serious problem in your breast, but it should not be ignored. Please contact your physician as soon as possible to discuss the results of this exam and decide what the next steps in your medical care should be. If you have already been notified of these findings, please disregard this letter. Thank you for allowing us to help in meeting your health care needs. Sincerely, Dr. Goodwin Interpreting Radiologist [facility] (Abnormal) CNCO Observed: 09/15/2018 Status: COMPLETED Source: [place] 2:34 PM [facility] [place] REPOSITORY HNO ID: [id number] Author: Mammography Coordinator Service: (none) Author Type: Physician Type: Letter Filed: 09/16/2018 11:32 PM Note Text: September 15, 2018 PID: [id number] Leona Garcia p [id number] [facility] [address] [place] [address] Dear Porsche, Your recent breast imaging exam on 09/15/2018 showed an abnormal area. At this time we recommend further evaluation. This does not necessarily mean that there is a serious problem in your breast, but it should not be ignored. Please contact your physician as soon as possible to discuss the results of this exam and decide what the next steps in your medical care should be. If you have already been notified of these findings, please disregard this letter. Thank you for allowing us to help in meeting your health care needs. Sincerely, Dr. Goodwin Interpreting Radiologist [facility] (Abnormal) PROGRESS Observed: 09/15/2018 Status: COMPLETED Source: [place] 1:58 PM [facility] REPOSITORY HNO ID: [id number] Author: Stacy Malhotra Service: (none) Author Type: Reliability Technologist Type: Progress Notes Filed: 09/15/2018 1:59 PM Note Text: Radiology Service Progress Note PATIENT NAME: Leona Morrell DATE OF SERVICE: September 15, 2018 TIME: 1:58 PM PATIENT IDENTITY VERIFICATION COMPLETED USING TWO (2) METHODS: Patient confirmed name verbally and Date of . PATIENT GENDER DATA: Female. status: : No status: N/A PATIENT RELEVANT IMPLANT DATA REVIEWED: Not Applicable RADIOLOGY DEPARTMENT: Ultrasound PERIPHERAL IV DATA: Not applicable SIGNED BY: STACY MALHOTRA RDMS RVAbraham September 15, 2018 1:58 PM [facility] US BREAST LTD Observed: 09/15/2018 Status: F Source: [place] RT 1:58 PM [facility] REPOSITORY * * *Final Report* * * DATE OF EXAM: Sep 15 2018 1:58PM WRU [id number] - [facility] US BREAST LTD RT / PROCEDURE REASON: multiple diagnoses * * * * Physician Interpretation * * * * #[id number] - [facility] US BREAST LTD LT #[id number] - [facility] BREAST [facility] RT LIMITED ULTRASOUND OF RIGHT BREAST: 09/15/2018 HISTORY: Multiple Diagnoses Multiple Diagnoses. RESULT: No prior exams were available for comparison. Color flow and real-time ultrasound of the right breast outer aspect were performed. Acevedo scale images of the real-time examination were reviewed. There are benign complex cysts right breast at 6, 7, and 11 o'clock. Multiple cystic and complex cystic lesions in the right breast probably represent cluster of ducts or fibrocystic changes. There is an oval lesion in the right breast at 11 o'clock anterior depth. This oval lesion is hypoechoic. IMPRESSION: SUSPICIOUS OF MALIGNANCY The oval lesion in the right breast likely represents a fibroadenoma and is at a low suspicion for malignancy. An ultrasound guided biopsy is recommended. LIMITED ULTRASOUND OF LEFT BREAST: 09/15/2018 RESULT: No prior exams were available for comparison. Color flow and continuous wave Doppler ultrasound of the left breast 1 o'clock and 6 o'clock regions were performed. Acevedo scale images of the real-time examination were reviewed. There is 1.4 cm x 0.4 cm lobulated area in the left breast at 6 o'clock in the retroareolar region. This lobulated area is hypoechoic. IMPRESSION: PROBABLY BENIGN - SHORT TERM INTERVAL FOLLOW-UP RECOMMENDED The 1.4 cm x 0.4 cm lobulated area in the left breast is probably benign. SUMMARY: Findings and recommendations discussed with the patient. Patient scheduled for a surgical consult. Patrick bravo/cyril:09/15/2018 14:34:40 Multiple national specialty organizations have released breast cancer screening guidelines for women at average risk for developing breast cancer - guidelines that are based on both evidence and opinion, yet differ on when to start and how often to screen for breast cancer. With representation from Breast Imaging, Internal Medicine, Women's Health, Family Medicine, and Medical/Surgical Oncology, the [facility] has carefully reviewed the data and reached the following consensus: 1) All women should engage in shared decision-making with their providers to decide when to start and how often to screen; 2) All women should have the opportunity to start screening mammography at age 40; 3) For women ages 45-55, we recommend annual screening mammograms; 4) For women ages 55 and over, we support both the transition from an annual to a biennial interval if this aligns more with patient's values and preferences, or continuation with annual screening; 5) All women should discuss with their providers when to stop screening mammograms. County Judge(s): Stacy Malhotra, [facility] letter sent: Abnormal OVERALL STUDY BIRADS: 4a Suspicious abnormality - low suspicion for malignancy Websphere Consultant: Cyril Transcribe Date/Time: Sep 15 2018 1:46P Dictated by : PATRICK GOODWIN DO This examination was interpreted and the report reviewed and electronically signed by: PATRICK GOODWIN DO on Sep 15 2018 2:34PM EST [id number] [facility] BREAST Kynded Observed: 09/15/2018 Status: F Source: [facility] 1:58 PM [facility] REPOSITORY * * *Final Report* * * DATE OF EXAM: Sep 15 2018 1:58PM WRU [id number] - [facility] BREAST Kynded LT / PROCEDURE REASON: multiple diagnoses * * * * Physician Interpretation * * * * #[id number] - [facility] BREAST LTD LT #[id number] - [facility] BREAST LTD RT LIMITED ULTRASOUND OF RIGHT BREAST: 09/15/2018 HISTORY: Multiple Diagnoses Multiple Diagnoses. RESULT: No prior exams were available for comparison. Color flow and real-time ultrasound of the right breast outer aspect were performed. Acevedo scale images of the real-time examination were reviewed. There are benign complex cysts right breast at 6, 7, and 11 o'clock. Multiple cystic and complex cystic lesions in the right breast probably represent cluster of ducts or fibrocystic changes. There is an oval lesion in the right breast at 11 o'clock anterior depth. This oval lesion is hypoechoic. IMPRESSION: SUSPICIOUS OF MALIGNANCY The oval lesion in the right breast likely represents a fibroadenoma and is at a low suspicion for malignancy. An ultrasound guided biopsy is recommended. LIMITED ULTRASOUND OF LEFT BREAST: 09/15/2018 RESULT: No prior exams were available for comparison. Color flow and continuous wave Doppler ultrasound of the left breast 1 o'clock and 6 o'clock regions were performed. Acevedo scale images of the real-time examination were reviewed. There is 1.4 cm x 0.4 cm lobulated area in the left breast at 6 o'clock in the retroareolar region. This lobulated area is hypoechoic. IMPRESSION: PROBABLY BENIGN - SHORT TERM INTERVAL FOLLOW-UP RECOMMENDED The 1.4 cm x 0.4 cm lobulated area in the left breast is probably benign. SUMMARY: Findings and recommendations discussed with the patient. Patient scheduled for a surgical consult. Patrick bravo/cyril:09/15/2018 14:34:40 Multiple national specialty organizations have released breast cancer screening guidelines for women at average risk for developing breast cancer - guidelines that are based on both evidence and opinion, yet differ on when to start and how often to screen for breast cancer. With representation from Breast Imaging, Internal Medicine, Women's Health, Family Medicine, and Medical/Surgical Oncology, the [facility] has carefully reviewed the data and reached the following consensus: 1) All women should engage in shared decision-making with their providers to decide when to start and how often to screen; 2) All women should have the opportunity to start screening mammography at age 40; 3) For women ages 45-55, we recommend annual screening mammograms; 4) For women ages 55 and over, we support both the transition from an annual to a biennial interval if this aligns more with patient's values and preferences, or continuation with annual screening; 5) All women should discuss with their providers when to stop screening mammograms. County Judge(s): Stacy Malhotra [facility] letter sent: Abnormal OVERALL STUDY BIRADS: 4a Suspicious abnormality - low suspicion for malignancy Websphere Consultant: Cyril Transcribe Date/Time: Sep 15 2018 1:46P Dictated by : PATRICK GOODWIN DO This examination was interpreted and the report reviewed and electronically signed by: PATRICK GOODWIN DO on Sep 15 2018 2:34PM EST [id number] PROGRESS Observed: 08/28/2018 Status: COMPLETED Source: [place] 4:53 PM [facility] REPOSITORY O ID: [id number] Author: Shadi Mendez) Luz Service: (none) Author Type: Physician Type: Progress Notes Filed: 08/28/2018 10:25 PM Note Text: Chief Complaint Patient presents with: Anxiety: [id number] but worsened in last 2 months HPI Leona Morrell is a 23 year old female who presents here today for Above Complaints. Accompanied today by family friend Ernestina. Patient andrea not have history of anxiety, but for the last year has been experiencing symptoms, worse over the last 6 months. Over the last year she has changed jobs, moved out of her apartment, issues with education. Symptoms as listed below as well as 2 panic attacks in the last 6 months. Describes panic symptoms as shaking, sweating, feeling like she is in a tunnel and has feeling of impending doom. Treats these by praying and deep breathing. Denies suicidal ideation. Has not been treated for anxiety in the past and has not seen counseling. Feeling nervous, anxious, or on edge 1 Several days Not being able to stop or control worrying 2 Over half the days Worrying too much about different things 3 Nearly every day Trouble relaxing 2 Over half the days Being so restless that it's hard to sit still 0 Not at all sure Being easily annoyed or irritable 1 Several days Feeling afraid as if something awful might happen 1 Several days SHANON-7 Anxiety Score 10 If you checked off any problems, how difficult have these problems made it for you to do your work, take care of things at home, or get along with other people? Somewhat difficult Also complaining of lumps in left breast over the last 2-3 weeks which are new. Gets the occasional lump which resolves, but patient states these have not changed for long enough that she would like them checked. Has family history of breast cancer with mother age 40s. Denies lymphadenopathy, pain, discharge, rash, nipple abnormality. 12 days out from period. Admits to coffee daily. Past medical history, appointments, medications, allergies reviewed. Previous Medical History PAST MEDICAL HISTORY Diagnosis Date - Acne - Dysmenorrhea - Irregular menses - MRSA cellulitis 04/30/2018 - PM - PAST MEDICAL HISTORY OF normal color vision Previous Surgical History PAST SURGICAL HISTORY Procedure Laterality Date - EXTRACTION ERUPTED TOOTH/EXR 07-20-12 - OTHER 11/25/2012 Sinus surgery; see progress notes Dr. Cullen - PAST SURGICAL HISTORY OF T and A and tongue clipped Family History FAMILY HISTORY Problem Relation Age of Onset - Cancer Mother 42 lung/breast primary - - Hypertension Father - Heart Father [place] - Heart Maternal Grandfather Patient Allergies ALLERGIES Allergen Reactions - Flovent [Fluticason* Itching Current Medications Current Outpatient Prescriptions on File Prior to Visit: phenazopyridine (PYRIDIUM) 200 mg tablet TO BE TAKEN DIRECTED BY MOUTH ONE(1) TABLET THREE TIMES DAILY X 2 DAYS (Patient not taking: Reported on 08/28/2018 ) doxycycline monohydrate (MONODOX) 100 mg capsule Take 1 capsule by mouth twice daily. No current facility-administered medications on file prior to visit. Social History Social History Marital status: Single Spouse name: Years of education: Number of children: 0 Occupational History Occupation Employer Comment Student Social History Main Topics Smoking status: Never Smoker Smokeless tobacco: Never Used Alcohol use: No Drug use: No Sexual activity: No Comment: never SA Review of Symptoms REVIEW OF SYSTEMS See HPI EXAM: BP 102/60 (BP Site: Right Arm, BP Position: Sitting, BP Cuff Size: Regular Adult) Pulse 64 Resp 16 LMP 08/05/2018 General Appearance: Well appearing, alert, in no acute distress, well-hydrated, well nourished.. Skin: Skin color, texture, turgor normal, no suspicious rashes or lesions. Neck: Supple, no adenopathy; thyroid symmetric, normal size, no bruits. Lungs: Lungs clear to auscultation. No wheezing, rhonchi, rales. Heart: RRR without murmur, gallop, or rubs. No ectopy. Breast: Inspection negative. No nipple discharge or bleeding. No palpable mass, No skin changes or dimpling, Negative findings: nipples everted without rashes or discharge and Positive findings: fibrocystic changes bilaterally , TTP superior to nipple bilaterally with 0.5- 1 cm mobile, solid, tender lump about 1.5 cm above left nipple at 1 o'clock and similar lesion at 5 o'clock on left nipple. Health Maintenance List HPV VACCINE(1 - Female 3-dose series) due on 2006 GC (GONORRHEA) SCREENING (18-24) due on 2013 CHLAMYDIA SCREENING (18-24) due on 11/17/2014 PAP EVERY 3 YEARS (21-30 YEAR OLDS) due on 2016 DTAP,TDAP,TD(7 - Td) due on 01/29/2022 INFLUENZA Completed Data reviewed Component Latest Ref Rng AND Units 08/14/2018 WBC 3.70 - 11.00 k/uL 6.66 RBC 3.90 - 5.20 m/uL 4.73 Hemoglobin 11.5 - 15.5 g/dL 13.1 Hematocrit 36.0 - 46.0 % 41.5 MCV 80.0 - 100.0 fL 87.7 MCH 26.0 - 34.0 pG 27.7 MCHC 30.5 - 36.0 g/dL 31.6 RDW-CV 11.5 - 15.0 % 13.5 Platelet Count 150 - 400 k/uL 263 MPV 9.0 - 12.7 fL 12.4 Neut% % 59.7 Abs Neut (ANC) 1.45 - 7.50 k/uL 3.98 Lymph% % 27.2 Abs Lymph 1.00 - 4.00 k/uL 1.81 Bibb% % 9.8 Abs Bibb <0.87 k/uL 0.65 Eosin% % 2.4 Abs Eosin <0.46 k/uL 0.16 Baso% % 0.9 Abs Baso <0.11 k/uL 0.06 Nucleated Reds 0 /100 WBC 0.0 Absolute nRBC <0.01 k/uL <0.01 Diff Type Auto Diff Protein, Total 6.3 - 8.0 g/dL 6.8 Albumin 3.9 - 4.9 g/dL 4.3 Calcium 8.5 - 10.2 mg/dL 9.7 Bilirubin, Total 0.2 - 1.3 mg/dL 0.7 Alkaline Phosphatase 34 - 123 U/L 47 AST 13 - 35 U/L 14 Glucose 74 - 99 mg/dL 86 BUN 7 - 21 mg/dL 15 Creatinine 0.58 - 0.96 mg/dL 0.77 Sodium 136 - 144 mmol/L 139 Potassium 3.7 - 5.1 mmol/L 4.1 Chloride 97 - 105 mmol/L 102 CO2 22 - 30 mmol/L 24 Anion Gap 9 - 18 mmol/L 13 ALT 7 - 38 U/L 14 eGFR- >60 eGFR-All Other Races . >60 ASSESSMENT/PLAN: 1. Anxiety - ICD9: 300.00, ICD10: F41.9 (primary diagnosis) Check TSH, start low dose SSRI. Refer to counseling. F/u in 2-3 months. - TSH BLD - SERTRALINE 50 MG TABLET - CONSULT TO PSYCHOLOGY 2. Left breast lump - ICD9: 611.72, ICD10: N63.20 Suspect benign lesion/fibrocystic changes. Due to pain will obtain diagnostic mammogram. - [facility] DIAGNOSTIC BILAT - US BREAST LTD RT - US BREAST LTD LT 3. Pain of both breasts - ICD9: 611.71, ICD10: N64.4 See above. - [facility] DIAGNOSTIC BILAT - US BREAST LTD RT - US BREAST LTD LT Shadi Escobar MD CNOV Observed: 08/28/2018 Status: COMPLETED Source: [place] 4:20 PM [facility] REPOSIT[facility] LEONA MORRELL ([id number]) 1995 F Date Time Provider Department 08/28/18 4:20 PM [facility]OB[facility] During your visit today, we recorded the following information about you: Pulse Respiration Blood pressure Last Period 64/minute 16/minute 102/60 08/05/18 Shadi Escobar MD 08/28/2018 10:25 PM Signed Chief Complaint Patient presents with: Anxiety: [id number] but worsened in last 2 months HPI Leona Morrell is a 23 year old female who presents here today for Above Complaints. Accompanied today by family friend Ernestina. Patient andrea not have history of anxiety, but for the last year has been experiencing symptoms, worse over the last 6 months. Over the last year she has changed jobs, moved out of her apartment, issues with education. Symptoms as listed below as well as 2 panic attacks in the last 6 months. Describes panic symptoms as shaking, sweating, feeling like she is in a tunnel and has feeling of impending doom. Treats these by praying and deep breathing. Denies suicidal ideation. Has not been treated for anxiety in the past and has not seen counseling. Feeling nervous, anxious, or on edge 1 Several days Not being able to stop or control worrying 2 Over half the days Worrying too much about different things 3 Nearly every day Trouble relaxing 2 Over half the days Being so restless that it's hard to sit still 0 Not at all sure Being easily annoyed or irritable 1 Several days Feeling afraid as if something awful might happen 1 Several days SHANON-7 Anxiety Score 10 If you checked off any problems, how difficult have these problems made it for you to do your work, take care of things at home, or get along with other people? Somewhat difficult Also complaining of lumps in left breast over the last 2-3 weeks which are new. Gets the occasional lump which resolves, but patient states these have not changed for long enough that she would like them checked. Has family history of breast cancer with mother age 40s. Denies lymphadenopathy, pain, discharge, rash, nipple abnormality. 12 days out from period. Admits to coffee daily. Past medical history, appointments, medications, allergies reviewed. Previous Medical History PAST MEDICAL HISTORY Diagnosis Date - Acne - Dysmenorrhea - Irregular menses - MRSA cellulitis 04/30/2018 - PMH - PAST MEDICAL HISTORY OF normal color vision Previous Surgical History PAST SURGICAL HISTORY Procedure Laterality Date - EXTRACTION ERUPTED TOOTH/EXR 07-20-12 - OTHER 11/25/2012 Sinus surgery; see progress notes Dr. Cullen - PAST SURGICAL HISTORY OF T and A and tongue clipped Family History FAMILY HISTORY Problem Relation Age of Onset - Cancer Mother 42 lung/breast primary - - Hypertension Father - Heart Father MT - Heart Maternal Grandfather Patient Allergies ALLERGIES Allergen Reactions - Flovent [Fluticason* Itching Current Medications Current Outpatient Prescriptions on File Prior to Visit: phenazopyridine (PYRIDIUM) 200 mg tablet TO BE TAKEN DIRECTED BY MOUTH ONE(1) TABLET THREE TIMES DAILY X 2 DAYS (Patient not taking: Reported on 08/28/2018 ) doxycycline monohydrate (MONODOX) 100 mg capsule Take 1 capsule by mouth twice daily. No current facility-administered medications on file prior to visit. Social History Social History Marital status: Single Spouse name: Years of education: Number of children: 0 Occupational History Occupation Employer Comment Student Social History Main Topics Smoking status: Never Smoker Smokeless tobacco: Never Used Alcohol use: No Drug use: No Sexual activity: No Comment: never SA Review of Symptoms REVIEW OF SYSTEMS See HPI EXAM: BP 102/60 (BP Site: Right Arm, BP Position: Sitting, BP Cuff Size: Regular Adult) Pulse 64 Resp 16 LMP 08/05/2018 General Appearance: Well appearing, alert, in no acute distress, well-hydrated, well nourished.. Skin: Skin color, texture, turgor normal, no suspicious rashes or lesions. Neck: Supple, no adenopathy; thyroid symmetric, normal size, no bruits. Lungs: Lungs clear to auscultation. No wheezing, rhonchi, rales. Heart: RRR without murmur, gallop, or rubs. No ectopy. Breast: Inspection negative. No nipple discharge or bleeding. No palpable mass, No skin changes or dimpling, Negative findings: nipples everted without rashes or discharge and Positive findings: fibrocystic changes bilaterally , TTP superior to nipple bilaterally with 0.5-1 cm mobile, solid, tender lump about 1.5 cm above left nipple at 1 o'clock and similar lesion at 5 o'clock on left nipple. Health Maintenance List HPV VACCINE(1 - Female 3-dose series) due on 2006 GC (GONORRHEA) SCREENING (18-24) due on 2013 CHLAMYDIA SCREENING (18-24) due on 11/17/2014 PAP EVERY 3 YEARS (21-30 YEAR OLDS) due on 2016 DTAP,TDAP,TD(7 - Td) due on 01/29/2022 INFLUENZA Completed Data reviewed Component Latest Ref Rng AND Units 08/14/2018 WBC 3.70 - 11.00 k/uL 6.66 RBC 3.90 - 5.20 m/uL 4.73 Hemoglobin 11.5 - 15.5 g/dL 13.1 Hematocrit 36.0 - 46.0 % 41.5 MCV 80.0 - 100.0 fL 87.7 MCH 26.0 - 34.0 pG 27.7 MCHC 30.5 - 36.0 g/dL 31.6 RDW-CV 11.5 - 15.0 % 13.5 Platelet Count 150 - 400 k/uL 263 MPV 9.0 - 12.7 fL 12.4 Neut% % 59.7 Abs Neut (ANC) 1.45 - 7.50 k/uL 3.98 Lymph% % 27.2 Abs Lymph 1.00 - 4.00 k/uL 1.81 Bibb% % 9.8 Abs Bibb <0.87 k/uL 0.65 Eosin% % 2.4 Abs Eosin <0.46 k/uL 0.16 Baso% % 0.9 Abs Baso <0.11 k/uL 0.06 Nucleated Reds 0 /100 WBC 0.0 Absolute nRBC <0.01 k/uL <0.01 Diff Type Auto Diff Protein, Total 6.3 - 8.0 g/dL 6.8 Albumin 3.9 - 4.9 g/dL 4.3 Calcium 8.5 - 10.2 mg/dL 9.7 Bilirubin, Total 0.2 - 1.3 mg/dL 0.7 Alkaline Phosphatase 34 - 123 U/L 47 AST 13 - 35 U/L 14 Glucose 74 - 99 mg/dL 86 BUN 7 - 21 mg/dL 15 Creatinine 0.58 - 0.96 mg/dL 0.77 Sodium 136 - 144 mmol/L 139 Potassium 3.7 - 5.1 mmol/L 4.1 Chloride 97 - 105 mmol/L 102 CO2 22 - 30 mmol/L 24 Anion Gap 9 - 18 mmol/L 13 ALT 7 - 38 U/L 14 eGFR- >60 eGFR-All Other Races . >60 ASSESSMENT/PLAN: 1. Anxiety - ICD9: 300.00, ICD10: F41.9 (primary diagnosis) Check TSH, start low dose SSRI. Refer to counseling. F/u in 2-3 months. - TSH BLD - SERTRALINE 50 MG TABLET - CONSULT TO PSYCHOLOGY 2. Left breast lump - ICD9: 611.72, ICD10: N63.20 Suspect benign lesion/fibrocystic changes. Due to pain will obtain diagnostic mammogram. - [facility] DIAGNOSTIC BILAT - US BREAST LTD RT - US BREAST LTD LT 3. Pain of both breasts - ICD9: 611.71, ICD10: N64.4 See above. - [facility] DIAGNOSTIC BILAT - US BREAST LTD RT - US BREAST LTD LT Shadi Escobar MD Referring Provider: SELF [[id number]] Allergies As of Date: 08/28/2018 Noted Allergy Reaction FLOVENT (FLUTICASONE PROPIONATE) 03/05/2012 9 - Itching Date Reviewed: 08/28/2018 Reviewed by: Beth Crawley - Fully Assessed Reason for Visit: Anxiety [9] Cmt: [id number] but worsened in last 2 months Primary Visit Diagnosis:Anxiety [F41.9] Other Visit Diagnoses:Left breast lump [N63.20] Pain of both breasts [N64.4] Order(s):TSH BLD [SQTSH] Order #: [id number] FUTURE sertraline (ZOLOFT) 50 mg tabletTake 1 tablet by mouth once daily.Disp: 30 tabletRfl: 2 CONSULT TO PSYCHOLOGY [9036] Order #: [id number]: 1 ALEXA DIAGNOSTIC BILAT [[id number]] Order #: [id number] FUTURE BREAST LTD RT [[id number]] Order #: [id number] FUTURE US BREAST LTD LT [[id number]] Order #: [id number] FUTURE Prescriptions as of 08/28/2018 Sig: SERTRALINE 50 MG TABLET Take 1 tablet by mouth once d* Problem List As Of Date 08/28/2018 Noted Resolved DYSMENORRHEA [N94.6] INVALID FOR* Irregular menstrual cycle [N92.6] INVALID FOR*11/17/2013 Acne [L70.9] INVALID FOR* Hyperandrogenism [E28.8] INVALID FOR* Elevated prolactin level [E22.9] INVALID FOR* Levator spasm [M62.838] INVALID FOR* MRSA cellulitis [L03.90, B95.62] INVALID FOR* Prescriptions ordered this encounter Disp Refills Start End SERTRALINE 50 MG TABLET 30 t* 2 08/28/2018 Route: ORAL Sig: Take 1 tablet by mouth once daily. Medications Discontinued During This Encounter phenazopyridine (PYRIDIUM) 200 mg ta* 6 ta* 0 08/09/2018 08/28/2018 Sig: TO BE TAKEN DIRECTED BY MOUTH ONE(1) TABLET THREE TIMES DAILY X 2 DAYS Patient not taking: Reported on 08/28/2018 Disc: Reason for discontinue is not on file. doxycycline monohydrate (MONODOX) 04/25/2018 08/28/2018 Class: Historical Med Route: ORAL Sig: Take 1 capsule by mouth twice daily. Disc: Reason for discontinue is not on file. Follow-up and Disposition History Recorded Questionnaire: SHANON-7 ANXIETY SCALE Feeling nervous, anxious, or on edge -> 1 Several days Not being able to stop or control worrying -> 2 Over half the days Worrying too much about different things -> 3 Nearly every day Trouble relaxing -> 2 Over half the days Being so restless that it's hard to sit still -> 0 Not at all sure Being easily annoyed or irritable -> 1 Several days Feeling afraid as if something awful might happen -> 1 Several days SHANON-7 Anxiety Score -> 10 If you checked off any problems, how difficult have these problems made it for you to do your work, take care of things at home, or get along with other people? -> Somewhat difficult Encounter Status:Closed by SHADI ESCOBAR MD on 08/28/18 PROGRESS Observed: 08/19/2018 Status: COMPLETED Source: [place] 11:55 AM [facility] RE[facility] HNO ID: [id number] Author: [place] [facility] Provider Service: (none) Author Type: Physician Type: Progress Notes Filed: 08/19/2018 8:06 AM Note Text: null (CCF:Not available [id number]) Visit Summary for Leona WilkinsonKaden Morrell - Gender: Female - Date of : 1995 ( ) Date: [id number] - Duration: 3 minutes Patient: Leona Jose Morrell Provider: Brissa King Patient Contact Information Address [address] [place] [phone] Visit Topics In April i had bacterial vaginosis, i was recently treated for a UTI with atinbiotics and now im having allnod the symptoms I was having with the bacterial vaginosis. Stinging, burning, sever itching inside of my vagina and vulva ans clioris. I noticed some [Added By: Self - 2018-08-19] Triage Questions Please provide your current address. We need this on file in case of a medical emergency.Answer [[address] [place] [address]] Conversation Transcripts [Notification] You are connected with Brissa King, Family Physician.[Notification] Leona Morrell is located in [place].[Notification] Leona Morrell has shared health history... Diagnosis Candidiasis of vulva and vagina Value: B37.3 Code: ICD-10-CM Procedures Value: 34868 Code: CPT-4 ONLINE E/M BY [facility] Medications Prescribed fluconazole Dose : 1 tablet Strength : 150 mg Route : oral Frequency : as instructed. Until directed to stop. Patient Instructions : Take 1 tablet now. Repeat in 6-7 days i Refills : 0 Instructions to the Pharmacist : Substitutions allowed Provider Notes 23 y.o. female has c.o. vaginal symptoms. Symptoms started 3 days ago. Patient had recently been treated with an antibiotic for UTI. She is having itching and irritation along with some stringy discharge. The discharge does not look white like past yeast infections. It does not have an odor. Patient is not sexually active, states that is is not an STI. Patient had been treated for BV in April, states that she had discharge with a fishy odor to it at that time. NKDA. Patient is on Flovent. On physical exam by webcam, the patient is alert and oriented, not in any acute distress. Discussed with the patient that her symptoms seem more consistent with a yeast infection than with BV, given the recent antibiotic use and lack of odor to the discharge. Provider will send in a prescription for fluconazole as seen below. If symptoms are not improving within 6-7 days, she will take a second dose. If still having symptoms, then she should be seen for in person evaluation. Visit mode; videoIf any issues with your prescription, please call [phone] Electronically signed by: Brissa King( ) COMP METABOLIC PANEL Collected: 08/14/2018 Status: F Source: [facility] 3:04 PM [facility] REPOSITORY TYPE CODE TESTS RESULT OUT OF REFERENCE UNITS RANGE LAB TP 6.3-8.0 g/dL Protein, Total 6.8 LAB ALB 3.9-4.9 g/dL Albumin 4.3 LAB CA 8.5-10.2 mg/dL Calcium, Total 9.7 LAB TBIL 0.2-1.3 mg/dL Bilirubin, Total 0.7 LAB ALKP 34-123 U/L Alkaline Phosphatase 47 LAB AST 13-35 U/L AST 14 LAB GLU 74-99 mg/dL Glucose 86 Result Comment: The [place] Diabetes Association (ADA) provides guidance for cutoff values for fasting glucose and random glucose. The ADA defines fasting as no caloric intake for at least 8 hours. Fas ting plasma glucose results between 100 to 125 mg/dL indicate increased risk for diabetes (prediabetes). Fasting plasma glucose results greater than or equal to 126 mg/dL meet the criteria for diagnosis of diabetes. In the absence of unequivocal hyperglycemia, results should be confirmed by repeat testing. In a patient with classic symptoms of hyperglycemia or hyperglycemic crisis, random plasma glucose results greater than or equal to 200 mg/dL meet the criteria for diagnosis of diabetes. Reference: Standards of Medical Care in Diabetes 2016, [place] [employer]. Diabetes Care. 2016.39(Suppl 1). LAB BUN 7-21 mg/dL BUN 15 LAB CRET 0.58-0.96 mg/dL Creatinine 0.77 LAB NA 136-144 mmol/L Sodium 139 LAB K 3.7-5.1 mmol/L Potassium 4.1 LAB CL 97-105 mmol/L Chloride 102 LAB CO2 22-30 mmol/L CO2 24 LAB AGAP 9-18 mmol/L Anion Gap 13 LAB ALT 7-38 U/L ALT 14 LAB GFRAA eGFR- Amer. >60 LAB GFRNAA . eGFR-All Other Races >60 Result Comment: eGFR (Estimated GFR) Units of measure: mL/min/1.73 meters squared eGFR is derived from the reexpressed MDRD Study equation using the following parameters: serum creatinine, age, gender and race. The creatinine assay has been calibrated to be traceable to IDMS. An eGFR <60 mL/min/1.73m2 for >3 months is consistent with chronic kidney disease. Refer to KDOQI guidelines for clinical interpretation. In patients with unstable renal function, e.g. those with acute kidney injury, the eGFR may not accurately reflect actual GFR. Performed By: #### CMP, CBCDIF #### [facility] [address] [id number] CBC AND DIFFERENTIAL Collected: 08/14/2018 Status: F Source: [facility] 3:04 PM [facility] REPOSITORY TYPE CODE TESTS RESULT OUT OF REFERENCE UNITS RANGE LAB WBC 3.70-11.00 k/uL WBC 6.66 LAB RBC 3.90-5.20 m/uL RBC 4.73 LAB HGB 11.5-15.5 g/dL Hemoglobin 13.1 LAB HCT 36.0-46.0 % Hematocrit 41.5 LAB MCV 80.0-100.0 fL MCV 87.7 LAB MCH 26.0-34.0 pG MCH 27.7 LAB MCHC 30.5-36.0 g/dL MCHC 31.6 LAB RDWCV 11.5-15.0 % RDW-CV 13.5 LAB PLTCT 150-400 k/uL Platelet Count 263 LAB MPV 9.0-12.7 fL MPV 12.4 LAB ANEUT % Neut% 59.7 LAB AANEUT 1.45-7.50 k/uL Abs Neut 3.98 LAB ALYMP % Lymph% 27.2 LAB AALYMP 1.00-4.00 k/uL Abs Lymph 1.81 LAB AMONO % Bibb% 9.8 LAB AAMONO <0.87 k/uL Abs Bibb 0.65 LAB AEOS % Eosin% 2.4 LAB AAEOS <0.46 k/uL Abs Eosin 0.16 LAB ABASO % Baso% 0.9 LAB AABASO <0.11 k/uL Abs Baso 0.06 LAB AUNRBC 0 /100 WBC NRBCs 0.0 LAB ABNRBC <0.01 k/uL Absolute nRBC <0.01 LAB DTYP DTYPE Auto Diff Performed By: #### CMP, CBCDIF #### [facility] [address] [place], [place] [address] PROGRESS Observed: 08/09/2018 Status: COMPLETED Source: [facility] 2:18 PM [facility] [place] REPOSITORY HNO ID: [id number] Author: Rogelio Gardner (Mikaela Boswell Service: (none) Author Type: Nurse Practitioner Type: Progress Notes Filed: 08/09/2018 2:22 PM Note Text: Subjective HPI Patient presents with: UTI symptoms off and on x 1 month Denies hx of frequent UTIs. Denies vaginal itching, discharge, or exposure to STD. Denies any otc treatment for symptoms. Review of Systems Constitutional: Negative for chills, fever and malaise/fatigue. Gastrointestinal: Negative for abdominal pain, diarrhea, nausea and vomiting. Genitourinary: Positive for dysuria and frequency. Negative for flank pain and hematuria. Denies vaginal discharge/itchiness Denies exposure to STD Musculoskeletal: Negative for back pain. All other systems reviewed and are negative. PAST MEDICAL HISTORY Diagnosis Date - Acne - Dysmenorrhea - Irregular menses - MRSA cellulitis 04/30/2018 - PMH - PAST MEDICAL HISTORY OF normal color vision PAST SURGICAL HISTORY Procedure Laterality Date - EXTRACTION ERUPTED TOOTH/EXR 07-20-12 - OTHER 11/25/2012 Sinus surgery; see progress notes Dr. Cullen - PAST SURGICAL HISTORY OF T and A and tongue clipped ALLERGIES Flovent [Fluticasone Propionate] MEDICATIONS cephALEXin (KEFLEX) 500 mg capsule Take 1 capsule by mouth twice daily for 7 days. FOR 10 DAYS phenazopyridine (PYRIDIUM) 200 mg tablet TO BE TAKEN DIRECTED BY MOUTH ONE(1) TABLET THREE TIMES DAILY X 2 DAYS doxycycline monohydrate (MONODOX) 100 mg capsule Take 1 capsule by mouth twice daily. FAMILY HISTORY Problem Relation Age of Onset - Cancer Mother 42 lung/breast primary - - Hypertension Father - Heart Father MT - Heart Maternal Grandfather Social History Substance Use Topics - Smoking status: Never Smoker - Smokeless tobacco: Never Used - Alcohol use No Objective Physical Exam Constitutional: She is well-developed, well-nourished, and in no distress. HENT: Head: Normocephalic. Eyes: Conjunctivae are normal. Neck: Normal range of motion. Cardiovascular: Normal rate, regular rhythm and normal heart sounds. Pulmonary/Chest: Effort normal and breath sounds normal. Abdominal: Soft. She exhibits no distension. There is no tenderness. There is no rebound, no guarding and no CVA tenderness. Skin: Skin is warm and dry. No rash noted. Nursing note and vitals reviewed. ASSESSMENT/PLAN: 1. Dysuria - ICD9: 788.1, ICD10: R30.0 (primary diagnosis) acute - UA positive for deepak esterase, hematuria, proteinuria and nitrates - Send urine for culture - Begin treatment with Keflex for 7 days - Patient education for prevention given - UA DIP, URINE (POC) - URINE CULTURE - URINALYSIS WITH MICROSCOPIC - CEPHALEXIN 500 MG CAPSULE - CBC + DIFF - COMP METABOLIC PANEL 2. Glucosuria - ICD9: 791.5, ICD10: R81 - Pt has no hx of DM - CBC + DIFF - COMP METABOLIC PANEL - Walked to [facility] and set up appt for f/u with PCP with labs Prescription instructions reviewed with patient as applicable. Patient advised if symptoms do not improve or if symptoms worsen sooner, to contact their primary care physician. Potential red flag symptoms discussed with the patient. Reviewed appropriate action plan to take if red flag symptoms occur. Patient agreeable to treatment plan. Rogelio Boswell APRN.BREANA CNOV Observed: 08/09/2018 Status: COMPLETED Source: [facility] 11:30 AM [facility] REPOSITORY Office Visit (WSTR) LEONA MORRELL ([id number]) 1995 F Date Time Provider Department 08/09/18 11:30 AM ROGELIO BOSWELL (FISH RECEIVER) WS During your visit today, we recorded the following information about you: Temperature Pulse Respiration Blood pressure 97.6 degrees 84/minute 12/minute 110/72 Weight 69.4 kg Rogelio Boswell APRN.CNP 08/09/2018 2:22 PM Signed Subjective HPI Patient presents with: UTI symptoms off and on x 1 month Denies hx of frequent UTIs. Denies vaginal itching, discharge, or exposure to STD. Denies any otc treatment for symptoms. Review of Systems Constitutional: Negative for chills, fever and malaise/fatigue. Gastrointestinal: Negative for abdominal pain, diarrhea, nausea and vomiting. Genitourinary: Positive for dysuria and frequency. Negative for flank pain and hematuria. Denies vaginal discharge/itchiness Denies exposure to STD Musculoskeletal: Negative for back pain. All other systems reviewed and are negative. PAST MEDICAL HISTORY Diagnosis Date - Acne - Dysmenorrhea - Irregular menses - MRSA cellulitis 04/30/2018 - PMH - PAST MEDICAL HISTORY OF normal color vision PAST SURGICAL HISTORY Procedure Laterality Date - EXTRACTION ERUPTED TOOTH/EXR 07-20-12 - OTHER 11/25/2012 Sinus surgery; see progress notes Dr. Cullen - PAST SURGICAL HISTORY OF T and A and tongue clipped ALLERGIES Flovent [Fluticasone Propionate] MEDICATIONS cephALEXin (KEFLEX) 500 mg capsule Take 1 capsule by mouth twice daily for 7 days. FOR 10 DAYS phenazopyridine (PYRIDIUM) 200 mg tablet TO BE TAKEN DIRECTED BY MOUTH ONE(1) TABLET THREE TIMES DAILY X 2 DAYS doxycycline monohydrate (MONODOX) 100 mg capsule Take 1 capsule by mouth twice daily. FAMILY HISTORY Problem Relation Age of Onset - Cancer Mother 42 lung/breast primary - - Hypertension Father - Heart Father MT - Heart Maternal Grandfather Social History Substance Use Topics - Smoking status: Never Smoker - Smokeless tobacco: Never Used - Alcohol use No Objective Physical Exam Constitutional: She is well-developed, well-nourished, and in no distress. HENT: Head: Normocephalic. Eyes: Conjunctivae are normal. Neck: Normal range of motion. Cardiovascular: Normal rate, regular rhythm and normal heart sounds. Pulmonary/Chest: Effort normal and breath sounds normal. Abdominal: Soft. She exhibits no distension. There is no tenderness. There is no rebound, no guarding and no CVA tenderness. Skin: Skin is warm and dry. No rash noted. Nursing note and vitals reviewed. ASSESSMENT/PLAN: 1. Dysuria - ICD9: 788.1, ICD10: R30.0 (primary diagnosis) acute - UA positive for deepak esterase, hematuria, proteinuria and nitrates - Send urine for culture - Begin treatment with Keflex for 7 days - Patient education for prevention given - UA DIP, URINE (POC) - URINE CULTURE - URINALYSIS WITH MICROSCOPIC - CEPHALEXIN 500 MG CAPSULE - CBC + DIFF - COMP METABOLIC PANEL 2. Glucosuria - ICD9: 791.5, ICD10: R81 - Pt has no hx of DM - CBC + DIFF - COMP METABOLIC PANEL - Walked to PSR and set up appt for f/u with PCP with labs Prescription instructions reviewed with patient as applicable. Patient advised if symptoms do not improve or if symptoms worsen sooner, to contact their primary care physician. Potential red flag symptoms discussed with the patient. Reviewed appropriate action plan to take if red flag symptoms occur. Patient agreeable to treatment plan. Rogelio Boswell APRN.FEATHER SHAPER Referring Provider: SELF [200] Allergies As of Date: 08/09/2018 Noted Allergy Reaction FLOVENT (FLUTICASONE PROPIONATE) 03/05/2012 9 - Itching Date Reviewed: 08/09/2018 Reviewed by: Rogelio Gardner (Metal Finish Inspector) Joel - Fully Assessed Reason for Visit: UTI [116] Primary Visit Diagnosis:Dysuria [R30.0] Other Visit Diagnosis:Glucosuria [R81] Order(s):UA DIP, URINE (POC) [4995271] Order #: [id number]. #:[id number] URINE CULTURE [SQURCUL] Order #: [id number] URINALYSIS WITH MICROSCOPIC [SQUAWMIC] Order #: [id number] cephALEXin (KEFLEX) 500 mg capsuleTake 1 capsule by mouth twice daily for 7 days. FOR 10 DAYSDisp: 14 capsuleRfl: 0 CBC + DIFF [SQCBCDIF] Order #: [id number] FUTURE COMP METABOLIC PANEL [SQCMP] Order #: [id number] FUTURE phenazopyridine (PYRIDIUM) 200 mg tabletTO BE TAKEN DIRECTED BY MOUTH ONE(1) TABLET THREE TIMES DAILY X 2 DAYSDisp: 6 tabletRfl: 0 Prescriptions as of 08/09/2018 Sig: CEPHALEXIN 500 MG CAPSULE Take 1 capsule by mouth twice* PHENAZOPYRIDINE 200 MG TABLET TO BE TAKEN DIRECTED BY MO* DOXYCYCLINE MONOHYDRATE 100 M* Take 1 capsule by mouth twice* Problem List As Of Date 08/09/2018 Noted Resolved DYSMENORRHEA [N94.6] INVALID FOR* Irregular menstrual cycle [N92.6] INVALID FOR*11/17/2013 Acne [L70.9] INVALID FOR* Hyperandrogenism [E28.8] INVALID FOR* Elevated prolactin level [E22.9] INVALID FOR* Levator spasm [M62.838] INVALID FOR* MRSA cellulitis [L03.90, B95.62] INVALID FOR* Prescriptions ordered this encounter Disp Refills Start End CEPHALEXIN 500 MG CAPSULE 14 c* 0 08/09/2018 08/16/2018 Route: ORAL Sig: Take 1 capsule by mouth twice daily for 7 days. FOR 10 DAYS PHENAZOPYRIDINE 200 MG TABLET 6 ta* 0 08/09/2018 Sig: TO BE TAKEN DIRECTED BY MOUTH ONE(1) TABLET THREE TIMES DAILY X 2 DAYS Medications Discontinued During This Encounter amoxicillin-clavulanic acid (AUGMENT* 04/25/2018 08/09/2018 Class: Historical Med Route: ORAL Sig: Take 1 tablet by mouth twice daily. Disc: Reason for discontinue is not on file. Disposition: Return in about 3 years (around 08/09/2021), or if symptoms worsen or fail to improve, for f/u labs. Follow-up and Disposition History Recorded Letter Text Rogelio Boswell APRN.[facility] [address] [facility] [address] Dept: [phone] 08/09/2018 Leona Morrell [address] [facility] [address] To Whom it May Concern: This is to certify that Leona Morrell was seen at our office for medical care. Leona may return to work on 08/10/2018. If you have any questions please feel free to call. Sincerely: Rogelio Boswell APRN.BREANA Encounter Status:Closed by ROGELIO BOSWELL on 08/09/18 Observed: 08/09/2018 Status: F Source: [facility] URINE CULTURE 4:01 AM [facility] REPOSITORY Sp. Request/Comment: - Specimen received in preservative Culture Result - 50,000 - <100,000 CFU/ml Three or more organisms, no one type predominant, suggesting contamination during collection. Recollect if clinically indicated. Performed By: #### URCUL #### [facility] [address] [place], [place] [address] PROGRESS Observed: 04/30/2018 Status: COMPLETED Source: [facility] 11:09 AM [facility] RE[facility] HNO ID: [id number] Author: Zeeshan Kauffman III Service: (none) Author Type: Physician Type: Progress Notes Filed: 04/30/2018 12:59 PM Note Text: Visit for Transitional Care Management CC: Leona is a 22 year old female following 5, days after the Hospital/Senior Living Discharge. Reviewed [facility] records. HPI: Mosquito bite L lat thigh that progressed to painful sore requiring hospitalization for IV clindamycin. D/c home on augmentin and doxycycline. Some vag irritation past few days. Vag. swab neg for yeast and bacterial vaginosis. PAST MEDICAL HISTORY: PAST MEDICAL HISTORY Diagnosis Date - Acne - Dysmenorrhea - Irregular menses - PMH - PAST MEDICAL HISTORY OF normal color vision ALLERGIES: ALLERGIES Allergen Reactions - Flovent [Fluticason* Itching MEDICATIONS: Current Outpatient Prescriptions: amoxicillin-clavulanic acid (AUGMENTIN) 875-125 mg per tablet Take 1 tablet by mouth twice daily. doxycycline monohydrate (MONODOX) 100 mg capsule Take 1 capsule by mouth twice daily. No current facility-administered medications for this visit. SOCIAL HISTORY: Social History Substance Use Topics - Smoking status: Never Smoker - Smokeless tobacco: Never Used - Alcohol use No FAMILY HISTORY: FAMILY HISTORY Problem Relation Age of Onset - Cancer Mother 42 lung/breast primary - - Hypertension Father - Heart Father MT - Heart Maternal Grandfather REVIEW OF SYSTEMS: PHYSICAL EXAMINATION BP 116/70 Pulse 99 Resp 18 Wt 161 lb (73.0kg) LMP 04/01/2018 General appearance: well appearing, alert, in no acute distress, well-hydrated, well nourished Skin: 5 mm shallow skin ulcer with sl yellow adherent slough at base L ant-lat thigh--no significant erythema IMP: MRSA folliculitis--resolving Plan: finish doxycycline and keep wound clean and covered discontinue augmentin may continue probiotics avoid contact with your nose answered all questions re: low degree of contagiousness; need to report recurring sx, possibility of tx of nasal MRSA if she develops recurrent folliculitis Zeeshan Kauffman III MD April 30, 2018 11:10 AM CNOV Observed: 04/30/2018 Status: COMPLETED Source: [facility] 10:40 AM [facility] Office Visit (FAMPWS) LEONA MORRELL ([id number]) 1995 F Date Time Provider Department 04/30/18 10:40 AM ZEESHAN KAUFFMAN III During your visit today, we recorded the following information about you: Pulse Respiration Blood pressure Weight 99/minute 18/minute 116/70 73 kg Zeeshan Kauffman III MD 04/30/2018 12:59 PM Signed Visit for Transitional Care Management CC: Leona is a 22 year old female following 5, days after the Hospital/Senior Living Discharge. Reviewed [facility] records. HPI: Mosquito bite L lat thigh that progressed to painful sore requiring hospitalization for IV clindamycin. D/c home on augmentin and doxycycline. Some vag irritation past few days. Vag. swab neg for yeast and bacterial vaginosis. PAST MEDICAL HISTORY: PAST MEDICAL HISTORY Diagnosis Date - Acne - Dysmenorrhea - Irregular menses - PMH - PAST MEDICAL HISTORY OF normal color vision ALLERGIES: ALLERGIES Allergen Reactions - Flovent [Fluticason* Itching MEDICATIONS: Current Outpatient Prescriptions: amoxicillin-clavulanic acid (AUGMENTIN) 875-125 mg per tablet Take 1 tablet by mouth twice daily. doxycycline monohydrate (MONODOX) 100 mg capsule Take 1 capsule by mouth twice daily. No current facility-administered medications for this visit. SOCIAL HISTORY: Social History Substance Use Topics - Smoking status: Never Smoker - Smokeless tobacco: Never Used - Alcohol use No FAMILY HISTORY: FAMILY HISTORY Problem Relation Age of Onset - Cancer Mother 42 lung/breast primary - - Hypertension Father - Heart Father MT - Heart Maternal Grandfather REVIEW OF SYSTEMS: PHYSICAL EXAMINATION BP 116/70 Pulse 99 Resp 18 Wt 161 lb (73.0kg) LMP 04/01/2018 General appearance: well appearing, alert, in no acute distress, well-hydrated, well nourished Skin: 5 mm shallow skin ulcer with sl yellow adherent slough at base L ant-lat thigh--no significant erythema IMP: MRSA folliculitis--resolving Plan: finish doxycycline and keep wound clean and covered discontinue augmentin may continue probiotics avoid contact with your nose answered all questions re: low degree of contagiousness; need to report recurring sx, possibility of tx of nasal MRSA if she develops recurrent folliculitis Zeeshan Kauffman III MD April 30, 2018 11:10 AM Zeeshan Kauffman III MD 04/30/2018 11:26 AM Signed Plan: finish doxycycline and keep wound clean and covered discontinue augmentin may continue probiotics avoid contact with your nose Zeeshan Kauffman III MD Referring Provider: SELF [200] Allergies As of Date: 04/30/2018 Noted Allergy Reaction FLOVENT (FLUTICASONE PROPIONATE) 03/05/2012 9 - Itching Date Reviewed: 04/30/2018 Reviewed by: Jo ([facility]) FLAKITA Kate - Fully Assessed Reason for Visit: Follow up-[facility] [Other] Cmt: MRSA Primary Visit Diagnosis:Hospital discharge follow-up [Z09] Other Visit Diagnoses:Folliculitis [L73.9] MRSA cellulitis [L03.90, B95.62] Prescriptions as of 04/30/2018 Sig: AMOXICILLIN 875 MG-POTASSIUM * Take 1 tablet by mouth twice * DOXYCYCLINE MONOHYDRATE 100 M* Take 1 capsule by mouth twice* Problem List As Of Date 04/30/2018 Noted Resolved DYSMENORRHEA [N94.6] INVALID FOR* Irregular menstrual cycle [N92.6] INVALID FOR*11/17/2013 Acne [L70.9] INVALID FOR* Hyperandrogenism [E28.8] INVALID FOR* Elevated prolactin level [E22.9] INVALID FOR* Levator spasm [M62.838] INVALID FOR* MRSA cellulitis [L03.90, B95.62] INVALID FOR* Other instructions from your clinician: Plan: finish doxycycline and keep wound clean and covered discontinue augmentin may continue probiotics avoid contact with your nose Zeeshan Kauffman III MD Encounter Status:Closed by ZEESHAN KAUFFMAN III, MD on 04/30/18 PROGRESS Observed: 04/28/2018 Status: COMPLETED Source: [facility] 11:45 AM [facility] REPOSITORY [facility] ID: [id number] Author: Lynda Catescalf Service: (none) Author Type: Nurse Practitioner Type: Progress Notes Filed: 04/28/2018 12:16 PM Note Text: Leona Morrell is a 22 year old female who presents for problem visit Yeast infection for 4 days. HPI: pt states that she was recently in the hospital for a MRSA infection-she was treated with IV ATB and now is on oral ones. The vaginal irritation started on Sat, she used OTC treatment and the irritation is better but not gone. Discharge is better and the irritation in more internal now. PAST MEDICAL HISTORY Diagnosis Date - Acne - Dysmenorrhea - Irregular menses - PMH - PAST MEDICAL HISTORY OF normal color vision PAST SURGICAL HISTORY Procedure Laterality Date - EXTRACTION ERUPTED TOOTH/EXR 07-20-12 - OTHER 11/25/2012 Sinus surgery; see progress notes Dr. Cullen - PAST SURGICAL HISTORY OF T and A and tongue clipped FAMILY HISTORY Problem Relation Age of Onset - Cancer Mother 42 lung/breast primary - - Hypertension Father - Heart Father MT - Heart Maternal Grandfather Social History Marital status: Single Spouse name: Years of education: Number of children: 0 Occupational History Occupation Employer Comment Student Social History Main Topics Smoking status: Never Smoker Smokeless tobacco: Never Used Alcohol use: No Drug use: No Sexual activity: No Comment: never SA Current Outpatient Prescriptions: sulfamethoxazole-trimethoprim (BACTRIM DS) 800-160 mg per tablet Take 1 tablet by mouth twice daily for 10 days. cephALEXin (KEFLEX) 500 mg capsule Take 1 capsule by mouth three times daily for 10 days. Levonorgestrel-Ethinyl Estrad (AVIANE) 0.1mg - 20mcg per tablet Take 1 tablet by mouth once daily. In first 3 pill packs take active pills only (1st 3 weeks). In 4th pack take the entire pack including placebo pills. (Patient not taking: Reported on 03/03/2018 ) No current facility-administered medications for this visit. Allergies As of Date: 04/28/2018 Allergen Noted Reaction FLOVENT [FLUTICASONE PROPIONATE] 03/05/2012 Itching Fully Assessed 04/22/2018 REVIEW OF SYSTEMS Abdomen: No bloating, early satiety, indigestion, or increased flatulence. No abdominal pain, nausea, vomiting, diarrhea, or constipation. Bladder: No dysuria, gross hematuria, urinary frequency, urinary urgency, or incontinence. Expanded ROS: N/A Allergies and current medication updated:Yes EXAM: There were no vitals taken for this visit. GENERAL: pleasant, female in no apparent distress HEENT: Normocephalic, atraumatic and no lesions CHEST: Normal inspiratory effort PELVIC: external genitalia normal, normal Bartholin's glands, urethra, Deaver's glands, no vulvar lesions, no cervical lesions, good vaginal support, physiologic discharge present, normal appearing perineal body and perianal region BIMANUAL: uterus normal size, shape and consistency, no adnexal masses, non-tender and no cervical motion tenderness NEURO: alert and oriented x3,exam grossly non-focal ASSESSMENT AND PLAN: Diflucan ordered BV/yeast culture sent Recommended Jamar Shen APRN.FEATHER SHAPER CNOV Observed: 04/28/2018 Status: COMPLETED Source: [facility] 11:45 AM [facility] REPOSITORY Office Visit (WOOB) LEONA MORRELL ([id number]) 1995 F Date Time Provider Department 04/28/18 11:45 AM LYNDA SHEN (BREANA) WOOB During your visit today, we recorded the following information about you: Blood pressure Weight Last Period 100/70 72.6 kg 04/01/18 Lynda Shen APRN.FEATHER SHAPER 04/28/2018 12:16 PM Signed Leona Minh Morrell is a 22 year old female who presents for problem visit Yeast infection for 4 days. HPI: pt states that she was recently in the hospital for a MRSA infection-she was treated with IV ATB and now is on oral ones. The vaginal irritation started on Sat, she used OTC treatment and the irritation is better but not gone. Discharge is better and the irritation in more internal now. PAST MEDICAL HISTORY Diagnosis Date - Acne - Dysmenorrhea - Irregular menses - PMH - PAST MEDICAL HISTORY OF normal color vision PAST SURGICAL HISTORY Procedure Laterality Date - EXTRACTION ERUPTED TOOTH/EXR 07-20-12 - OTHER 11/25/2012 Sinus surgery; see progress notes Dr. Cullen - PAST SURGICAL HISTORY OF T and A and tongue clipped FAMILY HISTORY Problem Relation Age of Onset - Cancer Mother 42 lung/breast primary - - Hypertension Father - Heart Father [place] - Heart Maternal Grandfather Social History Marital status: Single Spouse name: Years of education: Number of children: 0 Occupational History Occupation Employer Comment Student Social History Main Topics Smoking status: Never Smoker Smokeless tobacco: Never Used Alcohol use: No Drug use: No Sexual activity: No Comment: never SA Current Outpatient Prescriptions: sulfamethoxazole-trimethoprim (BACTRIM DS) 800-160 mg per tablet Take 1 tablet by mouth twice daily for 10 days. cephALEXin (KEFLEX) 500 mg capsule Take 1 capsule by mouth three times daily for 10 days. Levonorgestrel-Ethinyl Estrad (AVIANE) 0.1mg - 20mcg per tablet Take 1 tablet by mouth once daily. In first 3 pill packs take active pills only (1st 3 weeks). In 4th pack take the entire pack including placebo pills. (Patient not taking: Reported on 03/03/2018 ) No current facility-administered medications for this visit. Allergies As of Date: 04/28/2018 Allergen Noted Reaction FLOVENT [FLUTICASONE PROPIONATE] 03/05/2012 Itching Fully Assessed 04/22/2018 REVIEW OF SYSTEMS Abdomen: No bloating, early satiety, indigestion, or increased flatulence. No abdominal pain, nausea, vomiting, diarrhea, or constipation. Bladder: No dysuria, gross hematuria, urinary frequency, urinary urgency, or incontinence. Expanded ROS: N/A Allergies and current medication updated:Yes EXAM: There were no vitals taken for this visit. GENERAL: pleasant, female in no apparent distress HEENT: Normocephalic, atraumatic and no lesions CHEST: Normal inspiratory effort PELVIC: external genitalia normal, normal Bartholin's glands, urethra, Deaver's glands, no vulvar lesions, no cervical lesions, good vaginal support, physiologic discharge present, normal appearing perineal body and perianal region BIMANUAL: uterus normal size, shape and consistency, no adnexal masses, non-tender and no cervical motion tenderness NEURO: alert and oriented x3,exam grossly non-focal ASSESSMENT AND PLAN: Diflucan ordered BV/yeast culture sent Recommended Rephresh Lynda Shen, ADAPTIVE PHYSICAL EDUCATOR.FEATHER SHAPER Referring Provider: SELF [200] Allergies As of Date: 04/28/2018 Noted Allergy Reaction FLOVENT (FLUTICASONE PROPIONATE) 03/05/2012 9 - Itching Date Reviewed: 04/28/2018 Reviewed by: Lynda Hoang) Ac - Fully Assessed Reason for Visit: Vaginal Problem [117] Primary Visit Diagnosis:Vaginal irritation [N89.8] Other Visit Diagnosis:Vaginal yeast infection [B37.3] Order(s):fluconazole (DIFLUCAN) 150 mg tabletTake 1 tablet by mouth one time only for 1 dose.Disp: 1 tabletRfl: 0 BACT/MICHAEL VAG GRAM STAIN [SQBVCNSM] Order #: [id number] FUTURE Prescriptions as of 04/28/2018 Sig: AMOXICILLIN 875 MG-POTASSIUM * Take 1 tablet by mouth twice * DOXYCYCLINE MONOHYDRATE 100 M* Take 1 capsule by mouth twice* FLUCONAZOLE 150 MG TABLET Take 1 tablet by mouth one ti* Problem List As Of Date 04/28/2018 Noted Resolved DYSMENORRHEA [N94.6] INVALID FOR* Irregular menstrual cycle [N92.6] INVALID FOR*11/17/2013 Acne [L70.9] INVALID FOR* Hyperandrogenism [E28.8] INVALID FOR* Elevated prolactin level [E22.9] INVALID FOR* Levator spasm [M62.838] INVALID FOR* Prescriptions ordered this encounter Disp Refills Start End FLUCONAZOLE 150 MG TABLET 1 ta* 0 04/28/2018 04/28/2018 Route: ORAL Sig: Take 1 tablet by mouth one time only for 1 dose. Medications Discontinued During This Encounter cephALEXin (KEFLEX) 500 mg capsule 30 c* 0 04/22/2018 04/28/2018 Route: ORAL Sig: Take 1 capsule by mouth three times daily for 10 days. Patient not taking: Reported on 04/28/2018 Disc: Reason for discontinue is not on file. Levonorgestrel-Ethinyl Estrad (RENATE* 2 Pa* 12 10/22/2016 04/28/2018 Class: Print RX Route: ORAL Sig: Take 1 tablet by mouth once daily. In first 3 pill packs take active pills only (1st 3 weeks). In 4th pack take the entire pack including placebo pills. Patient not taking: Reported on 03/03/2018 Disc: Reason for discontinue is not on file. sulfamethoxazole-trimethoprim (BACTR* 20 t* 0 04/22/2018 04/28/2018 Cmt: Ok to give generic equivalent Route: ORAL Sig: Take 1 tablet by mouth twice daily for 10 days. Patient not taking: Reported on 04/28/2018 Disc: Reason for discontinue is not on file. Encounter Status:Closed by LYNDA SHEN on 04/28/18 Observed: 04/28/2018 Status: F Source: [facility] 1:44 AM [facility] [place] REPOSITORY Sp. Request/Comment: - Swab Smear Result - BACTERIAL VAGINOSIS RESULT: Stain results indicate mixed morphotypes consistent with transition from normal vaginal delmy. No Yeast observed Performed By: #### BVCNSM #### [facility] [address] [place], [place] [address] DISCHARGE SUMMARY Observed: 04/25/2018 Status: F Source: [place] 4:16 PM [facility] REPOSITORY [facility] Medical Records Department [address] [place] [address] Discharge Summary 04/25/18 1611 MR#: [id number] Acct: [id number] Name: LEONA MORRELL Rep #: [id number] : 1995 22 From: Nelson Magaña MD PCP: Nelida LACY,Ty Status: DIS IN Y Location: MS3 TO014-2 Discharge Date and Diagnosis Date of Admission: 04/23/18 Date of Discharge: 04/25/18 - Primary Discharge Diagnosis Staph aureus acute left lateral thigh cellulitis/infected bug bite. Hospital Course and Treatment Consultations 04/24/18 09:15 Consult: Onc/Wound/mfts Routine Comment: Operations: None Procedures: None Summary of Care Provided: Patient seen and examined on the day of discharge and appeared to be stable to be discharged home. She has no significant complaints and she remained afebrile. Erythema and swelling of the left lateral thigh is improving. Her vital signs are stable. - Physical Exam General: Alert, Oriented x3, Cooperative, No apparent distress. HEENT: Atraumatic, PERRLA, EOMI. Neck: Supple, No JVD, Negative Carotid Bruits, Trachea Midline, Thyroid Normal. Lungs: Clear to auscultation, Normal air movement, No rhonchi, No wheeze, No rales. Cardiovascular: Regular rate, Regular Rhythm, Normal S1, Normal S2, PMI Normal. Abdomen: Bowel Sounds Present, Soft, Non Tender, Non-Distended, No Hepato-splenomegaly. Extremities: No clubbing, No cyanosis, No edema Skin: No rashes, wound of the incision and drainage on the left lateral thigh measuring about 0.5 x 0.5 cm, surrounded erythema, improving. Neurological: Neuro grossly intact Vital Signs are stable. Hospital course: The patient is a 22 year old F admitted because of worsening left lateral thigh erythema, pain and swelling few days after she had a bug bite. She was found to have acute staph aureus left lateral thigh cellulitis/infected bug bite. Before admission, she went to urgent care where she had simple bedside incision and drainage and she was sent home on Keflex and Bactrim. She came to the hospital because of worsening erythema and swelling of the left lateral thigh as well as pain. Her routine blood work was unremarkable and she had no leukocytosis. Her vital signs are stable throughout admission and she remained afebrile. She was treated with IV clindamycin and erythema and swelling of the left lateral thigh improved. MRSA screen was positive. She had wound culture done at the urgent care which was not red yesterday as I had the charge nurse of [place] [id number] to call the urgent care. Wound culture done during this hospital stay and revealed staph aureus, final is pending. Patient discharged home in a stable medical condition, discharged on doxycycline for 7 days and Augmentin for 5 days, recommended to change the wound dressing with dry sterile dressing twice a day for the next 3 days and then once a day, recommended follow-up with PCP in 1 week Discharge Activity: Return to Normal Activity Weight Bearing Status: Full weight bearing Call your doctor if your incision/area has: Sudden Increased Bleeding, Increased Redness, Foul Smelling Discharge, Swelling at the incision site Call your doctor if you observe: Fever of 101 or Higher, Shortness of breath, Dizziness, Fainting spells, Chest pain, Increased palpitations (irregular heartbeat), Uncontrolled pain Home Medications: Medications to take at Discharge Amox/Clavulanate Tablet [Augmentin Tablet] 875 mg PO Q12H #10 tab 04/25/18 Doxycycline 100 mg PO BID #14 cap 04/25/18 Following Prescrptions Were Given to Patient: Amox/Clavulanate Tablet [Augmentin Tablet] 875 mg PO Q12H #10 tab Doxycycline 100 mg PO BID #14 cap Primary Care Physician: Ty Krause MD [Primary Care Provider] - Please follow up with your Primary Care Physician in: this coming week. Disposition: Home Minutes spent on discharge:: 26 Patient Condition:: Stable Medical Necessity - Tobacco Use Smoking Status: Never smoker Tobacco Use: Non-smoker Meaningful Use Info Meaningful Use Diagnoses (Choose all that apply): None applicable 04/25/18 0636 <Electronically signed by Nelson Magaña MD> Date Nelson Magaña MD Cosigner Signature (if applicable): Date CC: Nelson Magaña; yT Krause MD Signed DISCHARGE INSTRUCTION Observed: 04/25/2018 Status: F Source: [place] 9:52 AM [facility] REPOSITORY [facility] Medical Records Department [address] [place] [address] Instructions for Home/Discharge Instructions 04/25/18 0951 MR#: [id number] Acct: [id number] Name: LEONA MORRELL Rep #: [id number] : 1995 22 From: Nelson Magaña MD PCP: Ty Krause MD Status: ADM IN - Discharge Diagnoses Current Active Problems: Current Active and Chronic Problems Cellulitis of the left lateral thigh (Acute) You will use the following diet at home:: Regular Your food should be the consistency of: Regular Discharge Activity: Return to Normal Activity Weight Bearing Status: Full weight bearing Call your doctor if your incision/area has: Sudden Increased Bleeding, Increased Redness, Foul Smelling Discharge, Swelling at the incision site Call your doctor if you observe: Fever of 101 or Higher, Shortness of breath, Dizziness, Fainting spells, Chest pain, Increased palpitations (irregular heartbeat), Uncontrolled pain Allergies/Adverse Reactions: Allergies fluticasone [From Flovent Diskus] Allergy (Verified 04/23/18 19:07) Hives milk Adverse Reaction (Verified 04/23/18 21:08) abdominal pain Medications to take at Discharge Amox/Clavulanate Tablet [Augmentin Tablet] 875 mg PO Q12H #10 tab 04/25/18 Doxycycline 100 mg PO BID #14 cap 04/25/18 The following prescriptions were given: Amox/Clavulanate Tablet [Augmentin Tablet] 875 mg PO Q12H #10 tab Doxycycline 100 mg PO BID #14 cap Primary Care Physician: Ty Krause MD [Primary Care Provider] - Please follow up with your Primary Care Physician in: this coming week. 04/25/1852 <Electronically signed by Nelson Magaña MD> Date Nelson Magaña MD CC: Ty Krause MD DISCHARGE INSTRUCTION Observed: 04/25/2018 Status: F Source: [place] 9:07 AM [facility] REPOSITORY [facility] Medical Records Department [address] [place] [address] Instructions for Home/Discharge Instructions 04/25/18 0905 MR#: [id number] Acct: [id number] Name: LEONA MORRELL Rep #: [id number] : 1995 22 From: Nelson Magaña MD PCP: Ty Krause MD Status: ADM IN - Discharge Diagnoses Current Active Problems: Current Active and Chronic Problems Cellulitis of the left lateral thigh (Acute) You will use the following diet at home:: Regular Your food should be the consistency of: Regular Discharge Activity: Return to Normal Activity Call your doctor if your incision/area has: Sudden Increased Bleeding, Increased Redness, Foul Smelling Discharge, Swelling at the incision site Call your doctor if you observe: Fever of 101 or Higher, Shortness of breath, Dizziness, Fainting spells, Chest pain, Increased palpitations (irregular heartbeat), Uncontrolled pain Additional Instructions: 1- change the dressing twice daily for the next 2-3 days then once daily. 2- use Tylenol or ibuprofen as needed for pain. Allergies/Adverse Reactions: Allergies fluticasone [From Flovent Diskus] Allergy (Verified 04/23/18 19:07) Hives milk Adverse Reaction (Verified 04/23/18 21:08) abdominal pain Medications to take at Discharge Clindamycin [Cleocin] 450 mg PO TID #60 cap 04/25/18 The following prescriptions were given: Clindamycin [Cleocin] 450 mg PO TID #60 cap Primary Care Physician: Ty Krause MD [Primary Care Provider] - Please follow up with your Primary Care Physician in: this coming week. 04/25/18 09 <Electronically signed by Nelson Magaña MD> Date Nelson Magaña MD CC: Ty Krause MD Observed: 04/24/2018 Status: F Source: [place] CULTURE, WOUND 11:20 AM [facility] REPOSITORY Gram Stain Gram Stain 2+ White Blood Cells No organisms seen Wound Culture Copy of report sent to Infection Control Printer [id number] 04/26/18 0847 [facility] 1: Meth. resistant Staph. aureus Amount Growth 2+ Meth. resistant Staph. aureus: REACTION Benzylpenicillin NF >=0.5 R Cefoxitin *NF + Clindamycin $$ <=0.25 S Inducable Clindamycin Resistan - Erythromycin $ >=8 R Gentamicin $ <=0.5 S Levofloxacin $ 0.25 S Linezolid $$$$ 2 S Oxacillin NF >=4 R Tigecycline $$$$ <=0.12 S Rifampin $$ <=0.5 S Tetracycline NF <=1 S Trimethoprim/Sulfametho $ <=10 S Vancomycin $ 1 S (NF) indicates non-formulary drug at [facility]. Approval by Infectious Disease Specialist required before non-formulary drugs may be ordered and/or dispensed. * CLSI guidelines does not recommend testing of cephalosporins. This interpretation is deduced from Beta-lactam/penicillin results. Performed By: #### [id number] #### [facility] [address] [place], [address] EMERGENCY DEPARTMENT Observed: 04/23/2018 Status: F Source: [place] SUMMARY 11:52 PM [facility] REPOSITORY [facility] Medical Records Department [address] [place] [address] Emergency Department Summary 04/23/18 2019 MR#: [id number] Acct: [id number] Name: LEONA MORRELL Rep #: [id number] : 1995 22 From: Rosy Bernal MD PCP: Ty Krause MD Status: ADM IN - ER Visit Summary Date of Service: 04/23/18 Chief Complaint: Abscess History of Present Illness: The patient is a 22 F with a bug bite to her left proximal thigh approximately 5 days ago. She was seen at urgent care yesterday morning where an I AND D was performed, culture sent, and she was started on Bactrim and Keflex. Patient was seen in the ER last night due to worsening redness and was given a dose of IV vancomycin. Per documentation patient developed diffuse erythema after the vancomycin which did resolve with stopping the antibiotic. Patient continued her Bactrim and Keflex today but the erythema that is previously been outlined has continued to spread. She is advised to return for IV antibiotics and admission. Patient has noted fever throughout this illness but states she feels that that is improving today as well. Physical Examination: Vital signs are unremarkable. Patient is afebrile at 98.2. Patient is in no acute distress and nontoxic appearing. Heart is regular rate and rhythm. No lung sounds are clear. Abdomen is soft nontender. Left thigh examination reveals a 1 cm incision of the proximal thigh with mild drainage. There is 20 x 22 cm area of surrounding cellulitis. Test Results: CBC was a white count of 10.6 with 72% neutrophils. This is improved from a white count of 18 last night. Chemistry studies are unremarkable. Emergency Department Course and Treatment: Patient is given a dose of IV clindamycin here. She will be admitted for IV antibiotics. Treatment Plan: [] Disposition: Admit Impression: Cellulitis left thigh This note was generated with [employer] dictation software. It may contain incorrect words, spelling, and punctuation that were not noted in review of the chart prior to signing ED Disposition - Plan for ED Patient: Chief Complaint: Abscess Referrals: Ty Krause MD [Primary Care Provider] - What to do if you have Problems For any increased pain, shortness of breath, bleeding, nausea or vomiting, chest pain, or any unexpected problems, contact your Primary Care Provider. Call [facility] ([phone]) or report to the closest Emergency Room. Call 911 if necessary. 04/23/18 9828 <Electronically signed by Rosy Bernal MD> Date Rosy Bernal MD Cosigner Signature (If Indicated): Date CC: Ty Krause MD M R STAPH AUREUS Collected: 04/23/2018 Status: F Source: [place] DNA BY PCR 9:55 PM [facility] REPOSITORY Order Comment: Source: NASAL SWAB TYPE CODE TESTS RESULT OUT OF REFERENCE UNITS RANGE LAB L8200.1100 Negative High MRSA POSITIVE RESULT Result Comment: RESULTS CALLED TO DCLARK 04/24/18 0015 Kimloi Ventura. REPORT READ BACK BY SAME. Performed By: #### L8200.1000 #### [facility] [address] [place], [address] HISTORY AND PHYSICAL Observed: 04/23/2018 Status: F Source: [place] EXAM 8:23 PM [facility] REPOSITORY [facility] Medical Records Department [address] [place] [address] History and Physical 04/23/182013 MR#: [id number] Acct: [id number] Name: LEONA MORRELL Rep #: [id number] : 1995 22 From: Ty Meng DO PCP: Ty Krause MD Status: ADM IN Location: [address] Problem List (1) Cellulitis of the left lateral thigh Status: Acute History of Present Illness Date of Admission: 04/23/18 Chief Complaint: Cellulitis of the left lateral thigh The patient is a 22 year old F who was seen in the emergency room at [facility] with chief complaint of increased redness over an area of cellulitis that she had diagnosed and seen her PCP on 04/22/18. Patient stated that she noticed pain in the area over her left lateral thigh the day before, she went to urgent care on 04/22/2018 and at that time the area over her left lateral thigh was reddened and tender to palpation, a nurse practitioner working at the urgent care performed incision and drainage of the area and got cultures. She was placed on Keflex and Bactrim, the area became more painful and she was seen in the emergency room last night and given IV vancomycin. Today she states the reddened area over her left lateral thigh has enlarged, she denies any fevers or chills. Evaluation in the emergency room revealed a normal white blood cell count, patient is afebrile, chemistry profile is unremarkable. Examination of the left lateral thigh area reveals a large area of redness over her left lateral thigh, central to this area is a draining small incision, there is serosanguineous drainage noted on her bandage. The area is tender to palpation but there is minimal induration of the entire area. Patient will be admitted for cellulitis of the left thigh, she will be placed on IV Ancef, emergency room physician gave the patient IV clindamycin. The patient's culture should be available from [facility] tomorrow, I will do a nasal screen for MRSA tonight. 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 Lives: With Family Smoking Status: Never smoker Tobacco Use: Non-smoker Alcohol: None Drugs: None - *Family History Maternal History Items: Cancer - of breast cancer Paternal History Items: Heart Disease Review of Systems Constitutional: Denies: Anorexia, Chills, Fever, Night Sweats, Malaise, Weakness, Weight Change, Fatigue Eyes: Denies: Blurred vision, Cataracts, Conjunctivae Inflammation, Double vision HEENT: Denies: Difficulty Hearing, Difficulty Swallowing, Dysphasia, Ear Pain, Eye Pain, Hearing Changes, Nasal bleeding, Nasal Congestion, Post Nasal Drip Cardiovascular: Denies: Chest Pain, Claudication, Chest Pressure, Chest Tightness, Edema Respiratory: Denies: Cough, Hemoptysis, Pleuritic Pain, Shortness of Breath Gastrointestinal: Denies: Abdominal Pain, Constipation, Diarrhea, Dyspepsia Genitourinary: Denies: Dysuria, Frequency, Hematuria Gynecological: Denies: Breast symptoms Musculoskeletal: Denies: Back Pain, Foot Pain, Hand Pain, Joint stiffness, Joint Tenderness Skin: Reports: Rash - Patient complains of a rash over her left lateral thigh, Wounds - Admits to small puncture wound on the left thigh from yesterday's I AND D Neurological: Denies: Balance problems, Blurred vision, Double vision, Change in Speech, Difficulty swallowing, Focal weakness, Headaches, Incoordination Psychiatric: Denies: Anxiety, Depression Endocrine: Denies: Change in Body Habitus, Heat/ Cold Intolerance, Polydipsia, Polyuria VTE Information - Inpt Only VTE Present on Admission: No VTE Mechan Device Prophylaxis: None VTE Pharm Prophylaxis ordered?: No Reason prophylaxis not ordered:: Treatment Not Indicated - low risk for VTE Patient Problems: Active and Suspected Problems Cellulitis of the left lateral thigh (Acute) - Physical Exam General: Alert, Oriented x3, Cooperative, No apparent distress, Well developed, Well nourished HEENT: Atraumatic, PERRLA, EOMI, Normocephalic Oral: Moist Mucosa Neck: Supple, No JVD, No Nuchal Rigidity, Trachea Midline, Thyroid Normal Size and Texture Lungs: Clear to auscultation, Normal air movement, No rhonchi, No wheeze, No rales Cardiovascular: Regular rate, Regular Rhythm, Normal S1, Normal S2, No murmurs, No Ectopic Activity, PMI Normal, No rub noted, No Gallop Abdomen: Bowel Sounds Present, Soft, Non Tender, Non-Distended, No hernias noted Extremities: No clubbing, No cyanosis, No edema, Capillary Refill Less than 3 Seconds Skin: Ulcer/ Wound - There is a small puncture wound present over the patient's left lateral thigh area, this is draining serosanguineous fluid, - - There is a large area of rash over the patient's left lateral thigh area-this area is approximately 10 cm in length by 6 cm in diameter, the area is not indurated Musculoskeletal: No Tenderness to Palpation of Joints or Extremities Neurological: Cranial nerves II-XII grossly intact, Neuro grossly intact, Sensory exam intact to light touch and pain, Coordination normal Psych/Mental Status: Normal Affect, Appropriate, Alert and oriented to time, place, person, mood and affect Vital Signs Temp Pulse Resp BP Pulse Ox 98.2 F 81 20 H 119/63 98 04/23/18 19:04 04/23/18 19:04 04/23/18 19:04 04/23/18 19:04 04/23/18 19:04 Oxygen Delivery Method Room Air Weight: 72.575 kg Body Mass Index (BMI) 28.3 Laboratory Tests Past 24 Hrs Assessment/Plan All Active Problems Cellulitis of left hip (Acute) Encounter for evaluation of wound (Acute) Cellulitis of the left lateral thigh (Acute) #1 cellulitis of the left thigh-probably either secondary to MSSA or strep-patient will be admitted to medical surgical floor, she will be given IV Ancef, cultures to be available tomorrow from her outpatient urgent care. Patient will have nasal swab for MRSA, if this is positive, antibiotics may need to be changed. Code Visit Inpatient E AND M: [id number] Init Hosp L3 04/23/182022 <Electronically signed by Ty Meng DO> Date Ty Meng DO Cosigner Signature: Date (if applicable) CC: Ty Krause MD; Ty Meng DO Signed CBC W/DIFF, AUTOMATED Collected: 04/23/2018 Status: F Source: [place] 7:39 PM [facility] REPOSITORY TYPE CODE TESTS RESULT OUT OF RANGE REFERENCE UNITS LAB L100.1000 4.4-11.0 K/mm3 Normal WBC 10.6 LAB L100.1200 4.2-5.4 M/mm3 Normal RBC 4.60 LAB L100.1300 12.0-15.0 g/dl Normal HGB 13.1 LAB L100.1400 37-47 % Normal HCT 39.2 LAB L100.1500 81-99 fL Normal MCV 85.2 LAB L100.1600 27.0-32.0 pg Normal MCH 28.5 LAB L100.1700 32-36 g/gl Normal MCHC 33.4 LAB L100.1810 11.6-14.6 % Normal RDW CV 13.3 LAB L100.1820 35.1-43.9 fl Normal RDW SD 41.1 LAB L100.1900 150-450 K/mm3 Normal PLT 247 LAB L100.2000 6.2-12.0 fl Normal MPV 10.1 LAB L100.2100 47-70 % High NEUT% 71.8 LAB L100.2200 19-41 % Low LY% 14.7 LAB L100.2300 0-10 % High MONO% 11.0 LAB L100.2400 0-5 % Normal EO% 1.6 LAB L100.2500 0-1 % Normal BASO% 0.6 LAB L100.2550 0.0-0.9 % Normal IM GRAN % 0.300 Result Comment: IG% - Immature Granulocytes (promyelocytes, myelocytes and metamyelocytes) > 1% indicates that a LEFT SHIFT is Present. LAB L100.2620 2.0-7.7 X10 3/uL Normal Absolute Neut 7.6 LAB L100.2720 0.83-4.51 X10 3/ul Normal Absolute Lymph 1.56 Performed By: #### L100.0100 #### [facility] [address] [place], [address] BASIC METABOLIC Collected: 04/23/2018 Status: F Source: [place] PROFILE ([facility]) 7:39 PM [facility] REPOSITORY TYPE CODE TESTS RESULT OUT OF RANGE REFERENCE UNITS LAB L501.0100 74-106 mg/dL Normal GLU 90 Result Comment: Please note revised GLUCOSE reference range effective 2017. LAB L501.1000 7-18 mg/dL Normal BUN 17 LAB L501.1100 0.55-1.02 mg/dL Normal CREAT,SERUM 0.96 Result Comment: The validity of the calculated GFR AND GFRAA in patients over 70 years has not been determined. Clinical correlation is essential. LAB L501.1110 >60 mL/min Normal EST GFR 77 Result Comment: Non- GFR Calc LAB L501.1115 >60 mL/min Normal EST GFR - AA 93 Result Comment: GFR Calc LAB L501.1255 ml/min Normal Estimated CRCL 76.04 LAB L501.1300 10-20 RATIO Normal BUN/CRE 17.7 LAB L501.2200 8.5-10 mg/dL Normal .1 CA 8.8 LAB L501.5300 136-14 mmol/L Normal 5 NA 137 LAB L501.5600 3.5-5. mmol/L Normal 1 K 4.0 Result Comment: Moderate Hemolysis, Result may be falsely increased. LAB L501.5900 98-107 mmol/L Normal CL 105 LAB L501.6100 21.0-32.0 mmol/L Normal CO2 24.0 LAB L501.6200 5-15 Normal 8 GAP Performed By: #### L500.2500 #### [facility] [address] [place], [address] ,SERUM,HCG QUALI. Collected: Status: F Source: [place] 04/23/2018 7:39 PM [facility] REPOSITORY TYPE CODE TESTS RESULT OUT OF REFERENCE UNITS RANGE LAB L700.7000 0-9 Nonpreg Negative Normal HCGSQUAL NEGATIVE LAB L700.6700 =>Qualitative mIU/mL Normal HCG Qual < 1 triggr Performed By: #### L700.6800 #### [facility] [address] [place], [address] EMERGENCY DEPARTMENT Observed: 04/23/2018 Status: F Source: [place] SUMMARY 2:01 AM [facility] REPOSITORY [facility] Medical Records Department [address] [place] [address] Emergency Department Summary 04/22/18 2321 MR#: [id number] Acct: [id number] Name: LEONA MORRELL Rep #: [id number] : 1995 22 From: Hal Yoon PCP: Ty Krause MD Status: REG ER - ER Visit Summary Date of Service: 04/22/18 Chief Complaint: Abscess, wound check History of Present Illness: The patient is a 22 F L for worsening erythema around the abscess today. States started out as mosquito bite, scratching it. This started 4 days ago. Saw the urgent care today status post incision and drainage. States there was a lot of pus. She states wound cultures were collected. As outlined. She started on Keflex and Bactrim. She is taking 2 doses of each. States had a fever 101 at urgent care. Was told if redness past the lines to go to the ED for evaluation. No previous similar symptoms. Patient is not a diabetic. No immunosuppressants. Denies IV drug use. No history of similar. States still draining. No fevers since initially evaluated. Did take Tylenol and Motrin at around 4 PM, 7 hours ago. Physical Examination: General: Alert and oriented 3, no acute distress HEENT: Normocephalic, atraumatic. Moist mucosa membranes Neck: supple, nontender. Cardiovascular: Regular rate and rhythm, no murmurs Respiratory: Normal breath sounds, symmetric, no distress Abdomen: Soft, nontender, nondistended Extremities: Nontender, no edema, pulses intact 4 Neuro: no focal neurological deficits. Skin: Left hip: Straight incision noted, no active drainage. Erythema past the initial line. Proximal 10 x 8 cm. No streaking. Test Results: WBC 18. Creatinine 1.01. Emergency Department Course and Treatment: Patient nontoxic. Afebrile. There is worsening erythema from incision and drainage. I did check labs, she given 1 dose of vancomycin. White count was 18. She did have slight red man syndrome from the vancomycin. There is no lip or tongue swelling. Symptoms resolved. Reevaluation slight erythema past the inferior aspect of the line. Nothing superior. Patient nontoxic. No risk factors. Discussed with patient and mother, appropriate to continue medicines for another day, if symptoms worsen becomes febrile to return for reevaluation and expect admission at that time. Patient understands and agrees with plan. Declined any additional pain medicines. Should continue Tylenol and Motrin. All questions were answered. Treatment Plan: [] Disposition: Discharge Impression: 1. Left hip cellulitis 2. Wound check This note was generated with [employer] dictation software. It may contain incorrect words, spelling, and punctuation that were not noted in review of the chart prior to signing ED Disposition - Plan for ED Patient: Disposition: Home or Assisted Living Chief Complaint: Abscess Diagnosis: Cellulitis of left hip, Encounter for evaluation of wound Instructions: ED Infec Skin Cellulitis Referrals: Ty Krause MD [Primary Care Provider] - 2 Days for wound check Additional Instructions: Continue your current antibiotics. Fevers develop or worsening redness moving upwards, return for reevaluation. What to do if you have Problems For any increased pain, shortness of breath, bleeding, nausea or vomiting, chest pain, or any unexpected problems, contact your Primary Care Provider. Call [facility] ([phone]) or report to the closest Emergency Room. Call 911 if necessary. 04/23/18 0201 <Electronically signed by Hal Yoon> Date Hal Yoon Cosigner Signature (If Indicated): Date CC: Ty Krause MD CBC W/DIFF, AUTOMATED Collected: 04/22/2018 Status: C Source: [place]ANI 11:27 PM [facility] REPOSITORY TYPE CODE TESTS RESULT OUT OF RANGE REFERENCE UNITS LAB L100.1000 4.4-11.0 K/mm3 High WBC 18.0 LAB L100.1200 4.2-5.4 M/mm3 Normal RBC 4.83 LAB L100.1300 12.0-15.0 g/dl Normal HGB 13.7 LAB L100.1400 37-47 % Normal HCT 41.3 LAB L100.1500 81-99 fL Normal MCV 85.5 LAB L100.1600 27.0-32.0 pg Normal MCH 28.4 LAB L100.1700 32-36 g/gl Normal MCHC 33.2 LAB L100.1810 11.6-14.6 % Normal RDW CV 13.4 LAB L100.1820 35.1-43.9 fl Normal RDW SD 41.9 LAB L100.1900 150-450 K/mm3 Normal PLT 267 LAB L100.2000 6.2-12.0 fl Normal MPV 9.7 LAB L100.2100 47-70 % High NEUT% 76.6 LAB L100.2200 19-41 % Low LY% 10.1 LAB L100.2300 0-10 % High MONO% 12.1 LAB L100.2400 0-5 % Normal EO% 0.6 LAB L100.2500 0-1 % Normal BASO% 0.3 LAB L100.2550 0.0-0.9 % Normal IM GRAN % 0.300 Result Comment: IG% - Immature Granulocytes (promyelocytes, myelocytes and metamyelocytes) > 1% indicates that a LEFT SHIFT is Present. LAB L100.2620 2.0-7.7 X10 3/uL High Absolute Neut 13.8 LAB L100.2720 0.83-4.51 X10 3/ul Normal Absolute Lymph 1.82 LAB L100.4500 Normal SMEAR COMMENT SCANNED Result Comment: MONOCYTOSIS NOTED LAB L100.9900 Normal Reviewed PATH REV Result Comment: Neutrophilic leukocytosis. Clinical correlation necessary. Héctor Valadez M.D. 04/24/18 Pathologist comment added AMENDED REPORT 04/24/18804 PATH REV previously reported as: February gualberto Performed By: #### L100.0100 #### [facility] [address], [address] BASIC METABOLIC Collected: 04/22/2018 Status: F Source: [place] PROFILE ([facility]) 11:27 PM [facility] REPOSITORY TYPE CODE TESTS RESULT OUT OF RANGE REFERENCE UNITS LAB L501.0100 74-106 mg/dL Normal GLU 104 Result Comment: Fasting Glucose result from 100 to 125 mg/dL suggests IMPAIRED HOMEOSTASIS per A.D.A. criteria. Please note revised GLUCOSE reference range effective 2017. LAB L501.1000 7-18 mg/dL High BUN 22 LAB L501.1100 0.55-1.02 mg/dL Normal CREAT,SERUM 1.01 Result Comment: The validity of the calculated GFR AND GFRAA in patients over 70 years has not been determined. Clinical correlation is essential. LAB L501.1110 >60 mL/min Normal EST GFR 72 Result Comment: Non- GFR Calc LAB L501.1115 >60 mL/min Normal EST GFR - AA 88 Result Comment: GFR Calc LAB L501.1255 ml/min Normal Estimated CRCL 72.27 LAB L501.1300 10-20 RATIO High BUN/CRE 21.8 LAB L501.2200 8.5-10 mg/dL Normal .1 CA 8.8 LAB L501.5300 136-14 mmol/L Normal 5 NA 137 LAB L501.5600 3.5-5. mmol/L Normal 1 K 3.6 LAB L501.5900 98-107 mmol/L Normal CL 103 LAB L501.6100 21.0-3 mmol/L Normal 2.0 CO2 25.0 LAB L501.6200 5-15 Normal GAP 9 Performed By: #### L500.2500 #### [facility] [address] [place], [address] PROGRESS Observed: 04/22/2018 Status: COMPLETED Source: [place] 1:11 PM [facility] REPOSITORY HNO ID: [id number] Author: Adelita Blandon) Korin Service: (none) Author Type: Physician Professional Nurse Type: Progress Notes Filed: 04/22/2018 2:09 PM Note Text: Subjective HPI Pt presents with possible spider bite to the left thigh x 4 days. She noticed today that it was more painful and red so she came in for evaluation. She denies known staph infection or MRSA in the past. She has a temp of 100.5 here. She was not aware of a fever. No nv. She is not diabetic. Review of Systems Constitutional: Positive for fever. Skin: Spider bite left thigh All other systems reviewed and are negative. PAST MEDICAL HISTORY Diagnosis Date - Acne - Dysmenorrhea - Irregular menses - PMH - PAST MEDICAL HISTORY OF normal color vision Current Outpatient Prescriptions: sulfamethoxazole-trimethoprim (BACTRIM DS) 800-160 mg per tablet Take 1 tablet by mouth twice daily for 10 days. Disp: 20 tablet Rfl: 0 cephALEXin (KEFLEX) 500 mg capsule Take 1 capsule by mouth three times daily for 10 days. Disp: 30 capsule Rfl: 0 Levonorgestrel-Ethinyl Estrad (AVIANE) 0.1mg - 20mcg per tablet Take 1 tablet by mouth once daily. In first 3 pill packs take active pills only (1st 3 weeks). In 4th pack take the entire pack including placebo pills. (Patient not taking: Reported on 03/03/2018 ) Disp: 2 Package Rfl: 12 No current facility-administered medications for this visit. PAST SURGICAL HISTORY Procedure Laterality Date - EXTRACTION ERUPTED TOOTH/EXR 07-20-12 - OTHER 11/25/2012 Sinus surgery; see progress notes Dr. Cullen - PAST SURGICAL HISTORY OF T and A and tongue clipped FAMILY HISTORY Problem Relation Age of Onset - Cancer Mother 42 lung/breast primary - - Hypertension Father - Heart Father MT - Heart Maternal Grandfather Social History Substance Use Topics - Smoking status: Never Smoker - Smokeless tobacco: Never Used - Alcohol use No BP 120/68 Pulse 80 Temp 38.1 ?C (100.5 ?F) (Tympanic) Resp 16 Wt 72.6 kg (160 lb) Objective Physical Exam Constitutional: She is oriented to person, place, and time and well-developed, well-nourished, and in no distress. HENT: Head: Normocephalic and atraumatic. Cardiovascular: Normal rate, regular rhythm and normal heart sounds. Pulmonary/Chest: Effort normal and breath sounds normal. Musculoskeletal: Legs: Pt has a 7 cm area of redness with central induration on lateal left thigh. Some fluctuance palpated. No active drainage. No lymphangitic streaking. Neurological: She is alert and oriented to person, place, and time. Skin: Skin is warm and dry. Psychiatric: Affect and judgment normal. Nursing note and vitals reviewed. Procedure: I and D left thigh Area prepped in sterile fashion with betadine and draped. 4 cc 2% lidocaine injected locally for anesthetic. Small 1 cm incision made with an 11 blade scapel. A small amount of purulent drainage from surrounding tissue expressed. No abscess pocket found. Wound culture obtained. Wound irrigated. Dressed with gauze. Patient tolerated the procedure well, no complications. Consent given verbally from the patient. ASSESSMENT/PLAN: 1. Cellulitis of left thigh - ICD9: 682.6, ICD10: L03.116 - Begin treatment with bactrim and Keflex. I did attempt drainage however no organized abscess collection found. I did send for culture. Instructed to do warm soaks. If she develops a high fever, vomiting, or the redness worsens or she has streaking she needs to go to the ED. She was comfortable with this plan. - No lymphangetic streaking, this was defined for patient to watch for and to seek medical care immediately if appears - Area of cellulitis defined with pen, seek further attention if this area continues to enlarge - Follow up for recheck in two days with Ember Cuevas NP. - - WOUND CULTURE AND GRAM STAIN Adelita Quigley PA-C WOUND Observed: 04/22/2018 Status: F Source: [place] CULTURE/STAIN 1:11 PM [facility] REPOSITORY Sp. Request/Comment: - Swab Smear Result - Few Gram positive cocci in clusters --> ABNORMAL ALERT Few Polymorphonuclear leukocytes Many Red Blood Cells Culture Result - Many Methicillin resistant Staphylococcus aureus --> ABNORMAL ALERT ORGANISM: Methicillin resistant Staphylococcus aureus METHOD: Minimum inhibitory concentration(Vitek) Antibiotic Interp COLLEEN Status Erythromycin RESISTANT >=8 F Clindamycin SUSCEPTIBLE 0.25 F Testing for inducible clindamycin resistance was performed. Tetracycline SUSCEPTIBLE <=1 F Vancomycin SUSCEPTIBLE <=0.5 F Oxacillin RESISTANT >=4 F Oxacillin resistant staphylococci are resistant to all beta lactam antibiotics (except new cephalosporins with anti MRSA activity). Trimeth sulfameth SUSCEPTIBLE <=10 F Gentamicin SUSCEPTIBLE <=0.5 F Rifampin SUSCEPTIBLE <=0.5 F Rifampin should not be used alone for antimicrobial therapy. Daptomycin SUSCEPTIBLE 0.25 F Linezolid SUSCEPTIBLE 2 F Doxycycline SUSCEPTIBLE <=0.5 F Performed By: #### WCUL #### [facility] [address] [place], [place] [address] CNOV Observed: 04/22/2018 Status: COMPLETED Source: [place] 12:30 PM [facility] REPOSITORY Office Visit (WSTR) LEONA MORRELL ([id number]) 1995 F Date Time Provider Department 04/22/18 12:30 PM ADELITA QUIGLEY) WSTR During your visit today, we recorded the following information about you: Temperature Pulse Respiration Blood pressure 100.5 degrees 80/minute 16/minute 120/68 Weight 72.6 kg Adelita Quigley PA-C 04/22/2018 2:09 PM Signed Subjective HPI Pt presents with possible spider bite to the left thigh x 4 days. She noticed today that it was more painful and red so she came in for evaluation. She denies known staph infection or MRSA in the past. She has a temp of 100.5 here. She was not aware of a fever. No nv. She is not diabetic. Review of Systems Constitutional: Positive for fever. Skin: Spider bite left thigh All other systems reviewed and are negative. PAST MEDICAL HISTORY Diagnosis Date - Acne - Dysmenorrhea - Irregular menses - PMH - PAST MEDICAL HISTORY OF normal color vision Current Outpatient Prescriptions: sulfamethoxazole-trimethoprim (BACTRIM DS) 800-160 mg per tablet Take 1 tablet by mouth twice daily for 10 days. Disp: 20 tablet Rfl: 0 cephALEXin (KEFLEX) 500 mg capsule Take 1 capsule by mouth three times daily for 10 days. Disp: 30 capsule Rfl: 0 Levonorgestrel-Ethinyl Estrad (AVIANE) 0.1mg - 20mcg per tablet Take 1 tablet by mouth once daily. In first 3 pill packs take active pills only (1st 3 weeks). In 4th pack take the entire pack including placebo pills. (Patient not taking: Reported on 03/03/2018 ) Disp: 2 Package Rfl: 12 No current facility-administered medications for this visit. PAST SURGICAL HISTORY Procedure Laterality Date - EXTRACTION ERUPTED TOOTH/EXR 07-20-12 - OTHER 11/25/2012 Sinus surgery; see progress notes Dr. Cullen - PAST SURGICAL HISTORY OF T and A and tongue clipped FAMILY HISTORY Problem Relation Age of Onset - Cancer Mother 42 lung/breast primary - - Hypertension Father - Heart Father MT - Heart Maternal Grandfather Social History Substance Use Topics - Smoking status: Never Smoker - Smokeless tobacco: Never Used - Alcohol use No BP 120/68 Pulse 80 Temp 38.1 ?C (100.5 ?F) (Tympanic) Resp 16 Wt 72.6 kg (160 lb) Objective Physical Exam Constitutional: She is oriented to person, place, and time and well-developed, well-nourished, and in no distress. HENT: Head: Normocephalic and atraumatic. Cardiovascular: Normal rate, regular rhythm and normal heart sounds. Pulmonary/Chest: Effort normal and breath sounds normal. Musculoskeletal: Legs: Pt has a 7 cm area of redness with central induration on lateal left thigh. Some fluctuance palpated. No active drainage. No lymphangitic streaking. Neurological: She is alert and oriented to person, place, and time. Skin: Skin is warm and dry. Psychiatric: Affect and judgment normal. Nursing note and vitals reviewed. Procedure: I and D left thigh Area prepped in sterile fashion with betadine and draped. 4 cc 2% lidocaine injected locally for anesthetic. Small 1 cm incision made with an 11 blade scapel. A small amount of purulent drainage from surrounding tissue expressed. No abscess pocket found. Wound culture obtained. Wound irrigated. Dressed with gauze. Patient tolerated the procedure well, no complications. Consent given verbally from the patient. ASSESSMENT/PLAN: 1. Cellulitis of left thigh - ICD9: 682.6, ICD10: L03.116 - Begin treatment with bactrim and Keflex. I did attempt drainage however no organized abscess collection found. I did send for culture. Instructed to do warm soaks. If she develops a high fever, vomiting, or the redness worsens or she has streaking she needs to go to the ED. She was comfortable with this plan. - No lymphangetic streaking, this was defined for patient to watch for and to seek medical care immediately if appears - Area of cellulitis defined with pen, seek further attention if this area continues to enlarge - Follow up for recheck in two days with Ember Cuevas NP. - - WOUND CULTURE AND GRAM STAIN Adelita Quigley PA-C Referring Provider: SELF [200] Allergies As of Date: 04/22/2018 Noted Allergy Reaction FLOVENT (FLUTICASONE PROPIONATE) 03/05/2012 9 - Itching Date Reviewed: 04/22/2018 Reviewed by: Camelia Mohr Ma - Fully Assessed Reason for Visit: Derm Problem [33] Cmt: red, swollen on left thigh x 4 days Primary Visit Diagnosis:Cellulitis of left thigh [L03.116] Order(s):sulfamethoxazole-trimethoprim (BACTRIM DS) 800-160 mg per tabletTake 1 tablet by mouth twice daily for 10 days.Disp: 20 tabletRfl: 0 cephALEXin (KEFLEX) 500 mg capsuleTake 1 capsule by mouth three times daily for 10 days.Disp: 30 capsuleRfl: 0 WOUND CULTURE AND GRAM STAIN [SQWCUL] Order #: [id number] Prescriptions as of 04/22/2018 Sig: SULFAMETHOXAZOLE 800 MG-TRIME* Take 1 tablet by mouth twice * CEPHALEXIN 500 MG CAPSULE Take 1 capsule by mouth three* LEVONORGESTREL-ETHINYL ESTRAD* Take 1 tablet by mouth once d* Patient not taking: Reported on 03/03/2018 Problem List As Of Date 04/22/2018 Noted Resolved DYSMENORRHEA [N94.6] INVALID FOR* Irregular menstrual cycle [N92.6] INVALID FOR*11/17/2013 Acne [L70.9] INVALID FOR* Hyperandrogenism [E28.8] INVALID FOR* Elevated prolactin level [E22.9] INVALID FOR* Levator spasm [M62.838] INVALID FOR* Prescriptions ordered this encounter Disp Refills Start End SULFAMETHOXAZOLE 800 MG-TRIMETHOPRIM* 20 t* 0 04/22/2018 05/02/2018 Cmt: Ok to give generic equivalent Route: ORAL Sig: Take 1 tablet by mouth twice daily for 10 days. CEPHALEXIN 500 MG CAPSULE 30 c* 0 04/22/2018 05/02/2018 Route: ORAL Sig: Take 1 capsule by mouth three times daily for 10 days. Encounter Status:Closed by ADELITA QUIGLEY PA-C on 04/22/18 PROGRESS Observed: 04/21/2018 Status: COMPLETED Source: [place] 12:12 PM [facility] REPOSITORY O ID: [id number] Author: Marie Jamison (Pt) Tyree Service: (none) Author Type: Physical Therapist Type: Progress Notes Filed: 04/21/2018 12:16 PM Note Text: Episode Visit Count: 1 Therapist That Will Oversee The Plan Of Care: Marie Segura PT Start of Care Date: 04/21/18 Onset Date: 10/27/17 Patient Identified by Name and Date of : Yes No Data Recorded REHABILITATION AND SPORTS THERAPY PHYSICAL THERAPY EVALUATION PLAN OF CARE: Assessment: Leona Morrell presents with the chief complaint of pelvic pain, vaginal pain with tampon use and attempted penetration. She presents with impairments of spasm of pelvic floor, mostly deeper pelvic floor but also some superficial trigger points. She may benefit from skilled therapy services to improve pelvic floor tone, reduce trigger points to allow for pain free penetration and tampon use. Prognosis: Excellent Excellent due to: current objective clinical presentation;good overall health status Goals for Episode of Care: created on 04/21/18 through 07/20/18 Pelvic Pain: Patient to demonstrate independence in HEP Pt is able to tolerate vaginal penetration and tampon use without increase in symptoms Patient displays decreased muscle spasms in levator to allow for decreased pain levels Pain reduced to 0-2/10 Patient demonstrates ability to perform diaphragmatic breathing and relaxation Patient will be able to decrease muscle resting tone of pelvic floor muscles to allow for penetration Female Genitourinary Index Score will decrease by at least 7 points to show significant clinical improvement Planned Interventions, Frequency, and Duration: Current Frequency: 1x/week Duration: 8 weeks Total Number of Visits Planned: 8 Patient to be seen for Planned Treatment Interventions: Therapeutic exercise;Neuromuscular re-education;Therapeutic activities;Manual therapy;Self-residential management;Patient/Family/Caregiver Education;Modalities Modalities: Ultrasound;Biofeedback PLAN FOR NEXT VISIT: Review dilators, manual therapy Patient demonstrates good understanding of plan of care and treatment. The above goals and plan of care were discussed and agreed upon by patient/family. SUBJECTIVE: Leona Morrell is a 22 year old female seen today for Reports that it has always been painful to insert tampon, has not been able to tolerate any penetration at all. This has been going on for several months, no change. 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 Recreation / Current Exercise: cardio, ab workout Pain Score: 8/10 Pain Location: Vaginal Description: Sharp Frequency: Intermittent Post Treatment Pain Score: 0/10 Post Treatment Pain Description: (feels more loose) OBJECTIVE MEASURES WITH LEVEL OF FUNCTION: Pelvic Floor Pregnancies: 0 Dyspareunia: (painful touching, no penetration) History of low back pain: No Pelvic Alignment: neutral Pelvic Floor Muscle Assessment Pelvic Floor Muscle Assessment: PERFECT;Muscle Dynamics Power: 4+ Endurance: 8 Reps: 3 Reps / Seconds: 10/20 Contracton Pressure: Strong squeeze, full circumference of fingers compressed Recruitment of pelvic floor muscles: Coordinated Range of Motion: Decreased Ability to Lengthen pelvic floor: Yes Post shortening contraction relaxation: Decreased Paradoxical Contraction: No Pelvic Floor Manual Assessment Pelvic Floor Tenderness/Hyperactivity: Tested Vaginally in Tested Vaginally in : Supine/hooklying Bulbocavernosus: Left greater than right Superficial transverse perineal: Left greater than right Deep transverse perineal: Left Iliococcygeus: Left greater than right Levator Ani: Left greater than right Pubococcygeus: Left greater than right Pelvic Region Sensation: Hypersensitive (at 6 o'clock with Qtip test, all other points negative) LE Flexibility Flexibility: Hamstring Flexibility;Piriformis Flexibility R Hamstring Flexibility: min L Hamstring Flexibility: min/mod R Piriformis Flexibility: min L Piriformis Flexibility: min/mod LE Strength Trunk Strength: 4 R LE Strength: grossly 5/5 L LE Strength: grossly 5/5 Education: Education Learning Preferences: Demonstration;Explanation;Performance;Printed Materials Barriers: None Learning/educational needs: Plan of Care;Home exercise program Education Provided: Yes, see treatment interventions for education provided Education Provided To: Patient Education Mode/Type: Demonstration;Explanation/Discussion;Literature/Printed Materials;Performance Response to Education/Teach Back: States/Identifies TREATMENT: Evaluation Evaluation Therapeutic Exercise: 1: DB with pfm relaxation. abdominal relaxation 2: happy baby 3: deep squat 4: dilator use, using thumb internally 5: Educated on anatomy of pelvic floor, dysfucntion 6: Used model to demo self treatment techniques for home Skilled Intervention: Patient was educated in proper exercise technique and purpose for exercises. Skilled judgment was provided in selection of appropriate interventions. Provided written instruction for home exercise program to facilitate proper performance and compliance. Educated patient on rationale for performing exercises in regards to increase ease of ADL Manual Therapy: 1: manual stretching to deep pelvic floor 2: 4:30 and 7:30 sustained stretching to tolerance Skilled Intervention: Manual skills to improve joint mobility, ROM, and decrease pain. Utilized anatomy knowledge of the therapist, and assessment of patient's response to intervention. Billing: [facility]: Evaluation - Low Complexity (68923) Therapeutic Exercise (99806): 1:1 time: 25 minutes (2 units: 23-37 mins) Manual Therapy (53543): 1:1 time: 15 minutes (1 unit: 8-22 mins) Total time: 55 minutes Marie Segura PT CNTHERAPY Observed: 04/21/2018 Status: COMPLETED Source: [place] 10:00 AM [facility] REPOSITORY OT/PT/Speech Visit (SPTBR) REPP,LEONA M ([id number]) 1995 F Date Time Provider Department 04/21/18 10:00 AM MARIE SEGURA (PT) SPTBR Date Time Provider Department Center 04/21/2018 10:00 AM [id number]-XBFSAOMARIE SEGURA*SPTBR [facility] Anuel Reason for Visit: PT Eval [747] PT Discharge [752] Reason For Visit History Recorded Primary Visit Diagnosis:Levator spasm [M62.838] Allergies As of Date: 04/21/2018 Noted Allergy Reaction FLOVENT (FLUTICASONE PROPIONATE) 03/05/2012 9 - Itching Date Reviewed: 03/16/2018 Reviewed by: Nandini Robison Ma - Fully Assessed Prescriptions as of 04/21/2018 Sig: X LEVONORGESTREL-ETHINYL ESTRAD* Take 1 tablet by mouth once d* Patient not taking: Reported on 03/03/2018 Progress Notes: Marie Segura PT 04/21/2018 12:16 PM Signed Episode Visit Count: 1 Therapist That Will Oversee The Plan Of Care: Marie Segura PT Start of Care Date: 04/21/18 Onset Date: 10/27/17 Patient Identified by Name and Date of : Yes No Data Recorded REHABILITATION AND SPORTS THERAPY PHYSICAL THERAPY EVALUATION PLAN OF CARE: Assessment: Leona Morrell presents with the chief complaint of pelvic pain, vaginal pain with tampon use and attempted penetration. She presents with impairments of spasm of pelvic floor, mostly deeper pelvic floor but also some superficial trigger points. She may benefit from skilled therapy services to improve pelvic floor tone, reduce trigger points to allow for pain free penetration and tampon use. Prognosis: Excellent Excellent due to: current objective clinical presentation;good overall health status Goals for Episode of Care: created on 04/21/18 through 07/20/18 Pelvic Pain: Patient to demonstrate independence in HEP Pt is able to tolerate vaginal penetration and tampon use without increase in symptoms Patient displays decreased muscle spasms in levator to allow for decreased pain levels Pain reduced to 0-2/10 Patient demonstrates ability to perform diaphragmatic breathing and relaxation Patient will be able to decrease muscle resting tone of pelvic floor muscles to allow for penetration Female Genitourinary Index Score will decrease by at least 7 points to show significant clinical improvement Planned Interventions, Frequency, and Duration: Current Frequency: 1x/week Duration: 8 weeks Total Number of Visits Planned: 8 Patient to be seen for Planned Treatment Interventions: Therapeutic exercise;Neuromuscular re-education;Therapeutic activities;Manual therapy;Self-residential management;Patient/Family/Caregiver Education;Modalities Modalities: Ultrasound;Biofeedback PLAN FOR NEXT VISIT: Review dilators, manual therapy Patient demonstrates good understanding of plan of care and treatment. The above goals and plan of care were discussed and agreed upon by patient/family. SUBJECTIVE: Leona Morrell is a 22 year old female seen today for Reports that it has always been painful to insert tampon, has not been able to tolerate any penetration at all. This has been going on for several months, no change. 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 Recreation / Current Exercise: cardio, ab workout Pain Score: 8/10 Pain Location: Vaginal Description: Sharp Frequency: Intermittent Post Treatment Pain Score: 0/10 Post Treatment Pain Description: (feels more loose) OBJECTIVE MEASURES WITH LEVEL OF FUNCTION: Pelvic Floor Pregnancies: 0 Dyspareunia: (painful touching, no penetration) History of low back pain: No Pelvic Alignment: neutral Pelvic Floor Muscle Assessment Pelvic Floor Muscle Assessment: PERFECT;Muscle Dynamics Power: 4+ Endurance: 8 Reps: 3 Reps / Seconds: 10/20 Contracton Pressure: Strong squeeze, full circumference of fingers compressed Recruitment of pelvic floor muscles: Coordinated Range of Motion: Decreased Ability to Lengthen pelvic floor: Yes Post shortening contraction relaxation: Decreased Paradoxical Contraction: No Pelvic Floor Manual Assessment Pelvic Floor Tenderness/Hyperactivity: Tested Vaginally in Tested Vaginally in : Supine/hooklying Bulbocavernosus: Left greater than right Superficial transverse perineal: Left greater than right Deep transverse perineal: Left Iliococcygeus: Left greater than right Levator Ani: Left greater than right Pubococcygeus: Left greater than right Pelvic Region Sensation: Hypersensitive (at 6 o'clock with Qtip test, all other points negative) LE Flexibility Flexibility: Hamstring Flexibility;Piriformis Flexibility R Hamstring Flexibility: min L Hamstring Flexibility: min/mod R Piriformis Flexibility: min L Piriformis Flexibility: min/mod LE Strength Trunk Strength: 4 R LE Strength: grossly 5/5 L LE Strength: grossly 5/5 Education: Education Learning Preferences: Demonstration;Explanation;Performance;Printed Materials Barriers: None Learning/educational needs: Plan of Care;Home exercise program Education Provided: Yes, see treatment interventions for education provided Education Provided To: Patient Education Mode/Type: Demonstration;Explanation/Discussion;Literature/Printed Materials;Performance Response to Education/Teach Back: States/Identifies TREATMENT: Evaluation Evaluation Therapeutic Exercise: 1: DB with pfm relaxation. abdominal relaxation 2: happy baby 3: deep squat 4: dilator use, using thumb internally 5: Educated on anatomy of pelvic floor, dysfucntion 6: Used model to demo self treatment techniques for home Skilled Intervention: Patient was educated in proper exercise technique and purpose for exercises. Skilled judgment was provided in selection of appropriate interventions. Provided written instruction for home exercise program to facilitate proper performance and compliance. Educated patient on rationale for performing exercises in regards to increase ease of ADL Manual Therapy: 1: manual stretching to deep pelvic floor 2: 4:30 and 7:30 sustained stretching to tolerance Skilled Intervention: Manual skills to improve joint mobility, ROM, and decrease pain. Utilized anatomy knowledge of the therapist, and assessment of patient's response to intervention. Billing: [facility]: Evaluation - Low Complexity ([id number]) Therapeutic Exercise (19007): 1:1 time: 25 minutes (2 units: 23-37 mins) Manual Therapy (25411): 1:1 time: 15 minutes (1 unit: 8-22 mins) Total time: 55 minutes Marie Segura, PT Marie Segura, PT 09/22/2018 10:43 AM Signed [facility] REHABILITATION AND SPORTS THERAPY PHYSICAL THERAPY DISCONTINUANCE OF CARE Plan of Care Period: Initial Evaluation Date: 04/21/18 Last Visit Date: 04/21/18 Therapy Program: Patient did not return for follow up care as planned. Please refer to last visit note for interventions provided for this episode of care. Assessment: Unable to formally assess goal achievement due to non-compliance with therapy plan of care. Reason for Discontinuation of Care: Patient has not returned to therapy or scheduled additional follow-up appointments. Marie Segura, PT PROGRESS Observed: 03/16/2018 Status: COMPLETED Source: [place] 11:50 AM [facility] REPOSITORY HNO ID: [id number] Author: Stacy Cuevas Service: (none) Author Type: Merchandising Coordinator Type: Progress Notes Filed: 03/16/2018 1:03 PM Note Text: Lofter offered: Patient declines. Leona Morrell is a 22 year old female who presents for problem visit For vaginal discharge and vulvar irritation. HPI: Here today with complaint of vulvar irritation and burning with vaginal discharge, no odor, thinks she is getting a yeast infection. Was seen and treated for yeast on 03/03/18 Diflucan 150mg PO once but culture was negative. Tested positive for BV and treated on 03/04/18 with Flagyl 500mg PO BID x7 days. Patient does not have intercourse and has never had penile penetration. Has outercourse at this time with current partner. Declines any STD testing. PAST MEDICAL HISTORY Diagnosis Date - Acne - Dysmenorrhea - Irregular menses - PMH - PAST MEDICAL HISTORY OF normal color vision PAST SURGICAL HISTORY Procedure Laterality Date - EXTRACTION ERUPTED TOOTH/EXR 07-20-12 - OTHER 11/25/2012 Sinus surgery; see progress notes Dr. Cullen - PAST SURGICAL HISTORY OF T and A and tongue clipped FAMILY HISTORY Problem Relation Age of Onset - Cancer Mother 42 lung/breast primary - - Hypertension Father - Heart Father [place] - Heart Maternal Grandfather Social History Marital status: Single Spouse name: Years of education: Number of children: 0 Occupational History Occupation Employer Comment Student Social History Main Topics Smoking status: Never Smoker Smokeless tobacco: Never Used Alcohol use: No Drug use: No Sexual activity: No Comment: never SA Current Outpatient Prescriptions: Levonorgestrel-Ethinyl Estrad (AVIANE) 0.1mg - 20mcg per tablet Take 1 tablet by mouth once daily. In first 3 pill packs take active pills only (1st 3 weeks). In 4th pack take the entire pack including placebo pills. (Patient not taking: Reported on 03/03/2018 ) No current facility-administered medications for this visit. Allergies As of Date: 03/16/2018 Allergen Noted Reaction FLOVENT [FLUTICASONE PROPIONATE] 03/05/2012 Itching Fully Assessed 03/16/2018 REVIEW OF SYSTEMS Abdomen: No bloating, early satiety, indigestion, or increased flatulence. No abdominal pain, nausea, vomiting, diarrhea, or constipation. Bladder: No dysuria, gross hematuria, urinary frequency, urinary urgency, or incontinence. Breast: No breast lumps, nipple d/c, overlying skin changes, redness or skin retraction. Expanded ROS: N/A Allergies and current medication updated:Yes EXAM: BP 112/64 Wt 164 lb (74.4kg) LMP 03/02/2018 GENERAL: pleasant, female in no apparent distress HEENT: Normocephalic and atraumatic NECK: Supple and full range of motion DERMATOLOGY: Normal and without lesions PELVIC: external genitalia normal, normal Bartholin's glands, urethra, Deaver's glands, no vulvar lesions, no cervical lesions, good vaginal support, normal appearing perineal body and perianal region. Small amount of thick white/yellow discharge present, no odor. NEURO: alert and oriented x3,exam grossly non-focal EXTREMITIES: normal ASSESSMENT AND PLAN: 1. Vaginal discharge - ICD9: 623.5, ICD10: N89.8 (primary diagnosis) - BACT/MICHAEL VAG GRAM STAIN. - Taking probiotic - Recommend annual exam and pap smear. 2. Vulvar itching - ICD9: 698.1, ICD10: L29.2 Stacy Cuevas APRN.CNM Observed: 03/16/2018 Status: F Source: [place] BACT/CAND VAG [facility] 11:45 AM [facility] REPOSITORY Sp. Request/Comment: - Swab Smear Result - BACTERIAL VAGINOSIS RESULT: Stain results consistent with normal vaginal delmy. Few Polymorphonuclear leukocytes Few Mononuclear cells Few Epithelial cells MICHAEL SPECIES RESULT: No Yeast observed Performed By: #### BVCNSM #### [facility] [address] [place], [place] [address] CNOV Observed: 03/16/2018 Status: COMPLETED Source: [place] 11:15 AM [facility] REPOSITORY Office Visit (WOOB) LEONA MORRELL ([id number]) 1995 F Date Time Provider Department 03/16/18 11:15 AM STACY CUEVAS ([facility]) WOOB During your visit today, we recorded the following information about you: Blood pressure Weight 112/64 74.4 kg Stacy Cuevas APRN.CNM 03/16/2018 1:03 PM Signed Lofter offered: Patient declines. Leona Morrell is a 22 year old female who presents for problem visit For vaginal discharge and vulvar irritation. HPI: Here today with complaint of vulvar irritation and burning with vaginal discharge, no odor, thinks she is getting a yeast infection. Was seen and treated for yeast on 03/03/18 Diflucan 150mg PO once but culture was negative. Tested positive for BV and treated on 03/04/18 with Flagyl 500mg PO BID x7 days. Patient does not have intercourse and has never had penile penetration. Has outercourse at this time with current partner. Declines any STD testing. PAST MEDICAL HISTORY Diagnosis Date - Acne - Dysmenorrhea - Irregular menses - PMH - PAST MEDICAL HISTORY OF normal color vision PAST SURGICAL HISTORY Procedure Laterality Date - EXTRACTION ERUPTED TOOTH/EXR 07-20-12 - OTHER 11/25/2012 Sinus surgery; see progress notes Dr. Cullen - PAST SURGICAL HISTORY OF T and A and tongue clipped FAMILY HISTORY Problem Relation Age of Onset - Cancer Mother 42 lung/breast primary - - Hypertension Father - Heart Father [place] - Heart Maternal Grandfather Social History Marital status: Single Spouse name: Years of education: Number of children: 0 Occupational History Occupation Employer Comment Student Social History Main Topics Smoking status: Never Smoker Smokeless tobacco: Never Used Alcohol use: No Drug use: No Sexual activity: No Comment: never SA Current Outpatient Prescriptions: Levonorgestrel-Ethinyl Estrad (AVIANE) 0.1mg - 20mcg per tablet Take 1 tablet by mouth once daily. In first 3 pill packs take active pills only (1st 3 weeks). In 4th pack take the entire pack including placebo pills. (Patient not taking: Reported on 03/03/2018 ) No current facility-administered medications for this visit. Allergies As of Date: 03/16/2018 Allergen Noted Reaction FLOVENT [FLUTICASONE PROPIONATE] 03/05/2012 Itching Fully Assessed 03/16/2018 REVIEW OF SYSTEMS Abdomen: No bloating, early satiety, indigestion, or increased flatulence. No abdominal pain, nausea, vomiting, diarrhea, or constipation. Bladder: No dysuria, gross hematuria, urinary frequency, urinary urgency, or incontinence. Breast: No breast lumps, nipple d/c, overlying skin changes, redness or skin retraction. Expanded ROS: N/A Allergies and current medication updated:Yes EXAM: BP 112/64 Wt 164 lb (74.4kg) LMP 03/02/2018 GENERAL: pleasant, female in no apparent distress HEENT: Normocephalic and atraumatic NECK: Supple and full range of motion DERMATOLOGY: Normal and without lesions PELVIC: external genitalia normal, normal Bartholin's glands, urethra, Deaver's glands, no vulvar lesions, no cervical lesions, good vaginal support, normal appearing perineal body and perianal region. Small amount of thick white/yellow discharge present, no odor. NEURO: alert and oriented x3,exam grossly non-focal EXTREMITIES: normal ASSESSMENT AND PLAN: 1. Vaginal discharge - ICD9: 623.5, ICD10: N89.8 (primary diagnosis) - BACT/MICHAEL VAG GRAM STAIN. - Taking probiotic - Recommend annual exam and pap smear. 2. Vulvar itching - ICD9: 698.1, ICD10: L29.2 Stacy Cuevas APRN.CNM Referring Provider: SELF [[id number]] Allergies As of Date: 03/16/2018 Noted Allergy Reaction FLOVENT (FLUTICASONE PROPIONATE) 03/05/2012 9 - Itching Date Reviewed: 03/16/2018 Reviewed by: Nandini Robison Ma - Fully Assessed Reason for Visit: Vaginal Problem [117] Primary Visit Diagnosis:Vaginal discharge [N89.8] Other Visit Diagnosis:Vulvar itching [L29.2] Order(s):BACT/MICHAEL VAG GRAM STAIN [SQBVCNSM] Order #: [id number] FUTURE Prescriptions as of 03/16/2018 Sig: LEVONORGESTREL-ETHINYL ESTRAD* Take 1 tablet by mouth once d* Patient not taking: Reported on 03/03/2018 Problem List As Of Date 03/16/2018 Noted Resolved DYSMENORRHEA [N94.6] INVALID FOR* Irregular menstrual cycle [N92.6] INVALID FOR*11/17/2013 Acne [L70.9] INVALID FOR* Hyperandrogenism [E28.8] INVALID FOR* Elevated prolactin level [E22.9] INVALID FOR* Disposition: Return in about 2 months (around 05/16/2018) for annual exam. Follow-up and Disposition History Recorded Encounter Status:Closed by STACY CUEVAS on 03/16/18 Observed: 03/03/2018 Status: F Source: [place] BACT VAG GRAM STAIN 2:45 PM [facility] REPOSITORY Sp. Request/Comment: - Swab Smear Result - BACTERIAL VAGINOSIS RESULT: Stain results consistent with bacterial vaginosis. --> ABNORMAL ALERT No Yeast observed Rare Polymorphonuclear leukocytes Performed By: #### BVSTN #### [facility] [address] [place], [place] [address] PROGRESS Observed: 03/03/2018 Status: COMPLETED Source: [place] 2:07 PM [facility] REPOSITORY HNO ID: [id number] Author: Lita Ascencio ([facility]) Service: (none) Author Type: Merchandising Coordinator Type: Progress Notes Filed: 03/03/2018 5:06 PM Note Text: Leona Morrell is a 22 year old female who presents for problem visit Reports intense vaginal itching for 3 days.. HPI: Patient was treated for a UTI a few days ago at urgent care. Patient presents today reporting onset of menses recently but also new onset vaginal itching and thick white paste vaginal discharge. Patient's itching and burning is mostly external but patient also has point sharp tenderness at the slightest touch of her genital area. Patient has abstained from sexual activity with prospective partners due to this pain. Patient reports pain with wiping with toilet paper and with tampon insertion. Patient thinks these issues are separate but she felt she should bring up her preexisting external genital pain. Patient tried external Monistat cream sparingly on vulva without any relief. Patient reports she was up most of last night with unbearable itching and vulvar burning sensation. PAST MEDICAL HISTORY Diagnosis Date - Acne - Dysmenorrhea - Irregular menses - PMH - PAST MEDICAL HISTORY OF normal color vision PAST SURGICAL HISTORY Procedure Laterality Date - EXTRACTION ERUPTED TOOTH/EXR 07-20-12 - OTHER 11/25/2012 Sinus surgery; see progress notes Dr. Cullen - PAST SURGICAL HISTORY OF T and A and tongue clipped FAMILY HISTORY Problem Relation Age of Onset - Cancer Mother 42 lung/breast primary - - Hypertension Father - Heart Father [place] - Heart Maternal Grandfather Social History Marital status: Single Spouse name: Years of education: Number of children: 0 Occupational History Occupation Employer Comment Student Social History Main Topics Smoking status: Never Smoker Smokeless tobacco: Never Used Alcohol use: No Drug use: No Sexual activity: No Comment: never SA Current Outpatient Prescriptions: Levonorgestrel-Ethinyl Estrad (AVIANE) 0.1mg - 20mcg per tablet Take 1 tablet by mouth once daily. In first 3 pill packs take active pills only (1st 3 weeks). In 4th pack take the entire pack including placebo pills. (Patient not taking: Reported on 03/03/2018 ) No current facility-administered medications for this visit. Allergies As of Date: 03/03/2018 Allergen Noted Reaction FLOVENT [FLUTICASONE PROPIONATE] 03/05/2012 Itching Fully Assessed 03/03/2018 REVIEW OF SYSTEMS Abdomen: No bloating, early satiety, indigestion, or increased flatulence. No abdominal pain, nausea, vomiting, diarrhea, or constipation. Bladder: No dysuria, gross hematuria, urinary frequency, urinary urgency, or incontinence. Breast: No breast lumps, nipple d/c, overlying skin changes, redness or skin retraction. Expanded ROS: MULTIMEDIA DEVELOPER: Negative for abnormal vaginal bleeding, abnormal vaginal discharge or SEE HPI Allergies and current medication updated:Yes EXAM: BP 106/60 Wt 163 lb 9.6 oz (74.2kg) LMP 03/02/2018 GENERAL: pleasant, female in no apparent distress HEENT: Normocephalic, atraumatic, mucus membranes moist and no lesions NECK: Supple, full range of motion, no adenopathy and thyroid normal DERMATOLOGY: Normal, without lesions, non-icteric and non-hirsute BREAST: deferred CHEST: Normal inspiratory effort Regular rate and rhythm ABDOMEN: soft, non-tender, no masses, no hepatosplenomegaly, no lymphadenopathy and None tenderness in Generalized PELVIC: external genitalia normal, normal Bartholin's glands, urethra, Deaver's glands, no vulvar lesions, no cervical lesions, good vaginal support, normal appearing perineal body and perianal region, abnormal discharge scant thick adherent non-odorous discharge BIMANUAL: deferred and patient declined NEURO: alert and oriented x3,exam grossly non-focal EXTREMITIES: normal ASSESSMENT AND PLAN: Encounter Diagnosis ICD-10-CM 1. Vaginitis and vulvovaginitis N76.0 BACTERIAL VAGINOSIS SCORED GRAM STAIN VAGINAL SMEAR FOR MICHAEL CONSULT TO PHYSICAL THERAPY 2. Vestibulitis, vulvar N94.810 CONSULT TO PHYSICAL THERAPY CONSULT TO [facility] 1) Vulvovaginal hygiene reviewed 2) Vaginal culture for yeast and BV collected - Rx Diflucan 150mg PO x1 for presumptive yeast infection 3) Vulvar vestibulitis noted - positive cotton swab test. Referral to pelvic PT and consult to [facility] for pain management 4) RTC PRN Lita Ascencio APRN.ADRIANNA KNOXOV Observed: 03/03/2018 Status: COMPLETED Source: [place] 2:00 PM [facility] REPOSITORY Office Visit (WOOB) LEONA MORRELL ([id number]) 1995 F Date Time Provider Department 03/03/18 2:00 PM LITA ASCENCIO ([facility]) WOOB During your visit today, we recorded the following information about you: Blood pressure Weight Last Period 106/60 74.2 kg 03/02/18 Lita Ascencio ([facility]) 03/03/2018 5:06 PM Signed Leona Rolandangel is a 22 year old female who presents for problem visit Reports intense vaginal itching for 3 days.. HPI: Patient was treated for a UTI a few days ago at urgent care. Patient presents today reporting onset of menses recently but also new onset vaginal itching and thick white paste vaginal discharge. Patient's itching and burning is mostly external but patient also has point sharp tenderness at the slightest touch of her genital area. Patient has abstained from sexual activity with prospective partners due to this pain. Patient reports pain with wiping with toilet paper and with tampon insertion. Patient thinks these issues are separate but she felt she should bring up her preexisting external genital pain. Patient tried external Monistat cream sparingly on vulva without any relief. Patient reports she was up most of last night with unbearable itching and vulvar burning sensation. PAST MEDICAL HISTORY Diagnosis Date - Acne - Dysmenorrhea - Irregular menses - PMH - PAST MEDICAL HISTORY OF normal color vision PAST SURGICAL HISTORY Procedure Laterality Date - EXTRACTION ERUPTED TOOTH/EXR 07-20-12 - OTHER 11/25/2012 Sinus surgery; see progress notes Dr. Cullen - PAST SURGICAL HISTORY OF T and A and tongue clipped FAMILY HISTORY Problem Relation Age of Onset - Cancer Mother 42 lung/breast primary - - Hypertension Father - Heart Father MT - Heart Maternal Grandfather Social History Marital status: Single Spouse name: Years of education: Number of children: 0 Occupational History Occupation Employer Comment Student Social History Main Topics Smoking status: Never Smoker Smokeless tobacco: Never Used Alcohol use: No Drug use: No Sexual activity: No Comment: never SA Current Outpatient Prescriptions: Levonorgestrel-Ethinyl Estrad (AVIANE) 0.1mg - 20mcg per tablet Take 1 tablet by mouth once daily. In first 3 pill packs take active pills only (1st 3 weeks). In 4th pack take the entire pack including placebo pills. (Patient not taking: Reported on 03/03/2018 ) No current facility-administered medications for this visit. Allergies As of Date: 03/03/2018 Allergen Noted Reaction FLOVENT [FLUTICASONE PROPIONATE] 03/05/2012 Itching Fully Assessed 03/03/2018 REVIEW OF SYSTEMS Abdomen: No bloating, early satiety, indigestion, or increased flatulence. No abdominal pain, nausea, vomiting, diarrhea, or constipation. Bladder: No dysuria, gross hematuria, urinary frequency, urinary urgency, or incontinence. Breast: No breast lumps, nipple d/c, overlying skin changes, redness or skin retraction. Expanded ROS: MULTIMEDIA DEVELOPER: Negative for abnormal vaginal bleeding, abnormal vaginal discharge or SEE HPI Allergies and current medication updated:Yes EXAM: BP 106/60 Wt 163 lb 9.6 oz (74.2kg) LMP 03/02/2018 GENERAL: pleasant, female in no apparent distress HEENT: Normocephalic, atraumatic, mucus membranes moist and no lesions NECK: Supple, full range of motion, no adenopathy and thyroid normal DERMATOLOGY: Normal, without lesions, non-icteric and non-hirsute BREAST: deferred CHEST: Normal inspiratory effort Regular rate and rhythm ABDOMEN: soft, non-tender, no masses, no hepatosplenomegaly, no lymphadenopathy and None tenderness in Generalized PELVIC: external genitalia normal, normal Bartholin's glands, urethra, Deaver's glands, no vulvar lesions, no cervical lesions, good vaginal support, normal appearing perineal body and perianal region, abnormal discharge scant thick adherent non-odorous discharge BIMANUAL: deferred and patient declined NEURO: alert and oriented x3,exam grossly non-focal EXTREMITIES: normal ASSESSMENT AND PLAN: Encounter Diagnosis ICD-10-CM 1. Vaginitis and vulvovaginitis N76.0 BACTERIAL VAGINOSIS SCORED GRAM STAIN VAGINAL SMEAR FOR MICHAEL CONSULT TO PHYSICAL THERAPY 2. Vestibulitis, vulvar N94.810 CONSULT TO PHYSICAL THERAPY CONSULT TO [facility] 1) Vulvovaginal hygiene reviewed 2) Vaginal culture for yeast and BV collected - Rx Diflucan 150mg PO x1 for presumptive yeast infection 3) Vulvar vestibulitis noted - positive cotton swab test. Referral to pelvic PT and consult to [facility] for pain management 4) RTC PRN Lita Ascencio APRN.CNM Lita Ascencio ([facility]) 03/03/2018 5:06 PM Signed Minimizing irritation of the vulva (area around the vagina) Wear white cotton underwear. Avoid synthetic fabrics and tight clothing. Sleep wearing shorts or pajama bottoms without underwear. Shower as soon as possible after exercise. Avoid clothing detergents and soaps with perfumes or dyes. Use warm (not hot) water to wash the vulva and if you use soap use a product designed for sensitive skin (like Dove or Cetaphil). Do not douche or use creams/powders in the vulvar area unless instructed by your physician. If you must douche, use only plain warm water. Make sure the vulva is dry before dressing by patting dry with a towel. Avoid vigorous rubbing with the towel. You may want to use the blow dryer (on the cool setting only!) on the vulva. The most important way to let your body heal is by avoiding scratching. Many patients find it difficult to avoid scratching at night when they are most aware of the itchiness. You can try taking Benadryl just before bedtime. Some women find it helpful to wear cotton gloves to bed to avoid scratching at night. Lita Ascencio ([facility]) 03/04/2018 6:07 PM Signed Addended by: LITA ASCENCIO CNM on: 03/04/2018 06:07 PM Modules accepted: Orders Lita Ascencio ([facility]) 03/04/2018 10:33 PM Signed Addended by: LITA ASCENCIO CNM on: 03/04/2018 10:33 PM Modules accepted: Orders Referring Provider: SELF [200] Allergies As of Date: 03/03/2018 Noted Allergy Reaction FLOVENT (FLUTICASONE PROPIONATE) 03/05/2012 9 - Itching Date Reviewed: 03/03/2018 Reviewed by: Taniya Rodríguez RN - Fully Assessed Reason for Visit: vaginal itching [Other] Primary Visit Diagnosis:Vaginitis and vulvovaginitis [N76.0] Other Visit Diagnosis:Vestibulitis, vulvar [N94.810] Order(s):BACTERIAL VAGINOSIS SCORED GRAM STAIN [SQBVSTN] Order #: [id number]. #:[id number] CONSULT TO PHYSICAL THERAPY [9032] Order #: [id number]: [address] [facility] [[id number]] Order #: [id number]: 1 [] fluconazole (DIFLUCAN) 150 mg tabletTake 1 tablet by mouth one time only for 1 dose.Disp: 1 tabletRfl: 0 fluconazole (DIFLUCAN) 150 mg tabletTake 1 tablet by mouth one time only for 1 dose.Disp: 1 tabletRfl: 0 metroNIDAZOLE (FLAGYL) 500 mg tabletTake 1 tablet by mouth twice daily for 7 days.Disp: 14 tabletRfl: 0 Prescriptions as of 03/03/2018 Sig: FLUCONAZOLE 150 MG TABLET Take 1 tablet by mouth one ti* METRONIDAZOLE 500 MG TABLET Take 1 tablet by mouth twice * FLUCONAZOLE 150 MG TABLET Take 1 tablet by mouth one ti* LEVONORGESTREL-ETHINYL ESTRAD* Take 1 tablet by mouth once d* Patient not taking: Reported on 03/03/2018 Problem List As Of Date 03/03/2018 Noted Resolved DYSMENORRHEA [N94.6] INVALID FOR* Irregular menstrual cycle [N92.6] INVALID FOR*11/17/2013 Acne [L70.9] INVALID FOR* Hyperandrogenism [E28.8] INVALID FOR* Elevated prolactin level [E22.9] INVALID FOR* Other instructions from your clinician: Minimizing irritation of the vulva (area around the vagina) Wear white cotton underwear. Avoid synthetic fabrics and tight clothing. Sleep wearing shorts or pajama bottoms without underwear. Shower as soon as possible after exercise. Avoid clothing detergents and soaps with perfumes or dyes. Use warm (not hot) water to wash the vulva and if you use soap use a product designed for sensitive skin (like Dove or Cetaphil). Do not douche or use creams/powders in the vulvar area unless instructed by your physician. If you must douche, use only plain warm water. Make sure the vulva is dry before dressing by patting dry with a towel. Avoid vigorous rubbing with the towel. You may want to use the blow dryer (on the cool setting only!) on the vulva. The most important way to let your body heal is by avoiding scratching. Many patients find it difficult to avoid scratching at night when they are most aware of the itchiness. You can try taking Benadryl just before bedtime. Some women find it helpful to wear cotton gloves to bed to avoid scratching at night. Prescriptions ordered this encounter Disp Refills Start End FLUCONAZOLE 150 MG TABLET 1 ta* 0 03/03/2018 03/03/2018 Route: ORAL Sig: Take 1 tablet by mouth one time only for 1 dose. FLUCONAZOLE 150 MG TABLET 1 ta* 0 03/04/2018 03/04/2018 Route: ORAL Sig: Take 1 tablet by mouth one time only for 1 dose. METRONIDAZOLE 500 MG TABLET 14 t* 0 03/04/2018 03/11/2018 Route: ORAL Sig: Take 1 tablet by mouth twice daily for 7 days. Disposition: Return if symptoms worsen or fail to improve. Follow-up and Disposition History Recorded Encounter Status:Closed by LITA ASCENCIO CNM on 03/03/18 PROGRESS Observed: 02/20/2018 Status: COMPLETED Source: [place] 7:19 PM [facility] [place] REPOSITORY HNO ID: [id number] Author: Adelita Quigley (Pa) Service: (none) Author Type: Physician Professional Nurse Type: Progress Notes Filed: 02/20/2018 8:33 PM Note Text: Subjective HPI Pt presents with urinary frequency, dysuria, and urgency for 2 weeks,She has had some back. She has also had some abdominal pain. She has been taking azo which helps her pain. She is not sexually active right now. No abnormal vaginal discharge. Last menstrual cycle was January 29. No nv. Review of Systems Constitutional: Negative. HENT: Negative. Eyes: Negative. Respiratory: Negative. Cardiovascular: Negative. Gastrointestinal: Positive for abdominal pain. Negative for diarrhea, nausea and vomiting. Genitourinary: Positive for dysuria, frequency, hematuria and urgency. Negative for flank pain. Musculoskeletal: Back pain Skin: Negative. All other systems reviewed and are negative. PAST MEDICAL HISTORY Diagnosis Date - Acne - Dysmenorrhea - Irregular menses - PMH - PAST MEDICAL HISTORY OF normal color vision Current Outpatient Prescriptions: cephALEXin (KEFLEX) 500 mg capsule Take 1 capsule by mouth twice daily for 10 days. Disp: 20 capsule Rfl: 0 Levonorgestrel-Ethinyl Estrad (AVIANE) 0.1mg - 20mcg per tablet Take 1 tablet by mouth once daily. In first 3 pill packs take active pills only (1st 3 weeks). In 4th pack take the entire pack including placebo pills. Disp: 2 Package Rfl: 12 No current facility-administered medications for this visit. PAST SURGICAL HISTORY Procedure Laterality Date - EXTRACTION ERUPTED TOOTH/EXR 07-20-12 - OTHER 11/25/2012 Sinus surgery; see progress notes Dr. Cullen - PAST SURGICAL HISTORY OF T and A and tongue clipped FAMILY HISTORY Problem Relation Age of Onset - Cancer Mother 42 lung/breast primary - - Hypertension Father - Heart Father MT - Heart Maternal Grandfather Social History Substance Use Topics - Smoking status: Never Smoker - Smokeless tobacco: Never Used - Alcohol use No BP 112/61 Pulse 86 Temp 37.1 ?C (98.7 ?F) (Tympanic) Resp 16 Wt 74.4 kg (164 lb) Objective Physical Exam Constitutional: She is oriented to person, place, and time and well-developed, well-nourished, and in no distress. HENT: Head: Normocephalic and atraumatic. Cardiovascular: Normal rate, regular rhythm and normal heart sounds. Pulmonary/Chest: Effort normal and breath sounds normal. Abdominal: Soft. Bowel sounds are normal. Musculoskeletal: No cva tenderness Neurological: She is alert and oriented to person, place, and time. Skin: Skin is warm and dry. Psychiatric: Affect and judgment normal. Nursing note and vitals reviewed. ASSESSMENT/PLAN: 1. Burning with urination - ICD9: 788.1, ICD10: R30.0 (primary diagnosis) acute - Send urine for culture- dip unable to be read DT azo. - Begin treatment with keflex for 10 days - Pt not sexually active and not having vaginal discharge - UA DIP B/O - URINE CULTURE 2. Urinary frequency - ICD9: 788.41, ICD10: R35.0 Adelita Quigley PA-C CNOV Observed: 02/20/2018 Status: COMPLETED Source: [place] 7:00 PM [facility] REPOSITORY Office Visit ([facility]) LEONA MORRELL ([id number]) 1995 F Date Time Provider Department 02/20/18 7:00 PM ADELITA QUIGLEY ([place]) [facility] During your visit today, we recorded the following information about you: Temperature Pulse Respiration Blood pressure 98.7 degrees 86/minute 16/minute 112/61 Weight 74.4 kg Adelita Quigley PA-C 02/20/2018 8:33 PM Signed Subjective HPI Pt presents with urinary frequency, dysuria, and urgency for 2 weeks,She has had some back. She has also had some abdominal pain. She has been taking azo which helps her pain. She is not sexually active right now. No abnormal vaginal discharge. Last menstrual cycle was January 29. No nv. Review of Systems Constitutional: Negative. HENT: Negative. Eyes: Negative. Respiratory: Negative. Cardiovascular: Negative. Gastrointestinal: Positive for abdominal pain. Negative for diarrhea, nausea and vomiting. Genitourinary: Positive for dysuria, frequency, hematuria and urgency. Negative for flank pain. Musculoskeletal: Back pain Skin: Negative. All other systems reviewed and are negative. PAST MEDICAL HISTORY Diagnosis Date - Acne - Dysmenorrhea - Irregular menses - PMH - PAST MEDICAL HISTORY OF normal color vision Current Outpatient Prescriptions: cephALEXin (KEFLEX) 500 mg capsule Take 1 capsule by mouth twice daily for 10 days. Disp: 20 capsule Rfl: 0 Levonorgestrel-Ethinyl Estrad (AVIANE) 0.1mg - 20mcg per tablet Take 1 tablet by mouth once daily. In first 3 pill packs take active pills only (1st 3 weeks). In 4th pack take the entire pack including placebo pills. Disp: 2 Package Rfl: 12 No current facility-administered medications for this visit. PAST SURGICAL HISTORY Procedure Laterality Date - EXTRACTION ERUPTED TOOTH/EXR 07-20-12 - OTHER 11/25/2012 Sinus surgery; see progress notes Dr. Cullen - PAST SURGICAL HISTORY OF T and A and tongue clipped FAMILY HISTORY Problem Relation Age of Onset - Cancer Mother 42 lung/breast primary - - Hypertension Father - Heart Father MT - Heart Maternal Grandfather Social History Substance Use Topics - Smoking status: Never Smoker - Smokeless tobacco: Never Used - Alcohol use No BP 112/61 Pulse 86 Temp 37.1 ?C (98.7 ?F) (Tympanic) Resp 16 Wt 74.4 kg (164 lb) Objective Physical Exam Constitutional: She is oriented to person, place, and time and well-developed, well-nourished, and in no distress. HENT: Head: Normocephalic and atraumatic. Cardiovascular: Normal rate, regular rhythm and normal heart sounds. Pulmonary/Chest: Effort normal and breath sounds normal. Abdominal: Soft. Bowel sounds are normal. Musculoskeletal: No cva tenderness Neurological: She is alert and oriented to person, place, and time. Skin: Skin is warm and dry. Psychiatric: Affect and judgment normal. Nursing note and vitals reviewed. ASSESSMENT/PLAN: 1. Burning with urination - ICD9: 788.1, ICD10: R30.0 (primary diagnosis) acute - Send urine for culture- dip unable to be read DT azo. - Begin treatment with keflex for 10 days - Pt not sexually active and not having vaginal discharge - UA DIP B/O - URINE CULTURE 2. Urinary frequency - ICD9: 788.41, ICD10: R35.0 Adelita Quigley PA-C Referring Provider: SELF [200] Allergies As of Date: 02/20/2018 Noted Allergy Reaction FLOVENT (FLUTICASONE PROPIONATE) 03/05/2012 9 - Itching Date Reviewed: 02/20/2018 Reviewed by: Celeste Alarcon Software Developer - Fully Assessed Reason for Visit: UTI [116] Cmt: burning with urination,frequency and urgency x 2 weeks Vaginal Problem [117] Cmt: Vaginal pain x 2 weeks Reason For Visit History Recorded Primary Visit Diagnosis:Burning with urination [R30.0] Other Visit Diagnosis:Urinary frequency [R35.0] Order(s):UA DIP B/O [7296828] Order #: [id number] URINE CULTURE [SQURCUL] Order #: [id number] cephALEXin (KEFLEX) 500 mg capsuleTake 1 capsule by mouth twice daily for 10 days.Disp: 20 capsuleRfl: 0 Prescriptions as of 02/20/2018 Sig: CEPHALEXIN 500 MG CAPSULE Take 1 capsule by mouth twice* LEVONORGESTREL-ETHINYL ESTRAD* Take 1 tablet by mouth once d* Problem List As Of Date 02/20/2018 Noted Resolved DYSMENORRHEA [N94.6] INVALID FOR* Irregular menstrual cycle [N92.6] INVALID FOR*11/17/2013 Acne [L70.9] INVALID FOR* Hyperandrogenism [E28.8] INVALID FOR* Elevated prolactin level [E22.9] INVALID FOR* Prescriptions ordered this encounter Disp Refills Start End NITROFURANTOIN MONOHYDRATE AND MACROCR* 14 c* 0 02/20/2018 02/20/2018 Route: ORAL Sig: Take 1 capsule by mouth twice daily with meals for 7 days. CEPHALEXIN 500 MG CAPSULE 20 c* 0 02/20/2018 03/02/2018 Route: ORAL Sig: Take 1 capsule by mouth twice daily for 10 days. Medications Discontinued During This Encounter nitrofurantoin monohydrate and macro* 14 c* 0 02/20/2018 02/20/2018 Route: ORAL Sig: Take 1 capsule by mouth twice daily with meals for 7 days. Disc: Reason for discontinue is not on file. Encounter Status:Closed by ADELITA QUIGLEY PA-C on 02/20/18 Observed: 02/20/2018 Status: F Source: [place] URINE CULTURE 7:38 AM [facility] REPOSITORY SpKaden Request/Comment: - Specimen received in preservative Culture Result - 10,000 - <50,000 CFU/ml Escherichia coli --> ABNORMAL ALERT ORGANISM: Escherichia coli METHOD: Minimum inhibitory concentration(Vitek) Antibiotic Interp COLLEEN Status Ampicillin SUSCEPTIBLE <=2 F Gentamicin SUSCEPTIBLE <=1 F Trimeth sulfameth SUSCEPTIBLE <=20 F Cefazolin SUSCEPTIBLE <=4 F CLSI breakpoints for therapy of uncomplicated UTI's due to E.coli, K.pneumoniae, and P.mirabilis were applied and may be used to predict the activity of oral agents(cefaclor, cefdinir, cefpodoxime, cefp rozil, cefuroxime, cephalexin, loracarbef). Ciprofloxacin RESISTANT >=4 F Nitrofurantoin SUSCEPTIBLE <=16 F Cefepime SUSCEPTIBLE <=1 F Piperacillin/Tazobac SUSCEPTIBLE <=4 F Ampicillin Sulbact SUSCEPTIBLE <=2 F Ceftriaxone SUSCEPTIBLE <=1 F Meropenem SUSCEPTIBLE <=0.25 F Ertapenem SUSCEPTIBLE <=0.5 F Performed By: #### URCUL #### [facility] [address] [id number] ALLERGIES ALLERGIES DATE TYPE / CODE NAME / CODE REACTION SEVERITY SOURCE 04/23/2018 Drug fluticasone/[id number] Hives Unknown [place] Allergy/416 4952(RXNORM) Community 401577([facility] ED CT) Repository 04/23/2018 Drug milk/[id number](RX ABDOMINAL PAIN Unknown [place] Allergy/416 NORM) Community 473555([facility] ED CT) Repository 03/05/2012 DRUG FLUTICASONE ITCHING [facility] INGREDI/419 PROPIONATE [facility] 656283([facility] ED CT) ENCOUNTERS ENCOUNTERS ADMIT/DISCHARGE ACCOUNT ADMITTING ENCOUNTER LOCATION SOURCE NUMBER CLASS 10/06/2018/10/07/20 [id number] Ambulatory [address] Repository 09/29/2018/09/30/20 [id number] Ambulatory [address] Repository 09/25/2018/09/28/20 [id number] Ambulatory [address] Repository 09/25/[id number] [facility] ing:LABSPEC Repository 09/15/2018/09/15/20 [id number] Ambulatory [address] Repository 08/28/2018/08/31/20 [id number] Ambulatory [address] Repository 08/14/2018/08/14/20 [id number] Ambulatory [address] Repository 08/09/2018/08/11/20 [id number] Ambulatory [address] Repository 04/30/2018/05/01/20 [id number] Ambulatory [address] Repository 04/28/2018/05/01/20 [id number] Ambulatory [address] Repository 04/23/2018/04/25/20 [id number] [place], Inpatient [place] ing:UK6Vkwk: Repository WN228Ksf: 1 04/23/2018 [id number] [place], Ambulatory BMSBuilding:Greg Crawford MS[facility] Repository 04/23/2018 [id number] [place], Ambulatory BMSBuilding:Greg Crawford MS.[facility] Repository 04/23/2018 [id number] [place], Ambulatory BMSBuilding:Greg Crawford MS.[facility] Repository 04/22/2018/04/23/20 [id number] Emergency [address] ing:ED Repository 04/22/2018/04/24/20 [id number] Ambulatory [address] Repository 04/21/2018/04/21/20 [id number] Ambulatory [address] Repository 03/16/2018/03/18/20 [id number] Ambulatory [address] Repository 03/03/2018/03/06/20 [id number] Ambulatory [address] Repository 02/20/2018/02/24/[id number] Repository PAYERS PAYERS ENCOUNTER GUARANTOR PAYER SUBSCRIBER SOURCE 09/25/2018 LEONA Wilkinson Primary NOT GIVENUNK [place] [id number] CR Insurance:SELF PAY [address] [address]Eic: Number: Effective Repository Date:2018-09-25 (HP) 04/23/2018 LEONA Wilkinson Primary NOT GIVENUNK [place] [id number] CR Insurance:SELF PAY Community [address] [place] [address] [place] [id number]: Number: Effective Repository Date:2018-04-23 (HP) 04/23/2018 LEONA Wilkinson Primary NOT GIVENUNK [place] [id number] CR Insurance:SELF PAY [address] [place] [id number]: Number: Effective Repository Date:2018-04-23 (HP) 04/23/2018 LEONA Wilkinson Primary NOT GIVENUNK [place] [id number] CR Insurance:SELF PAY Community [address] [place] [address] [place] [id number]: Number: Effective Repository Date:2018-04-23 (HP) 04/23/2018 LEONA Wilkinson Primary NOT GIVENUNK [place] [id number] CR Insurance:SELF PAY Community [address] [place] [address] [place] [id number]: Number: Effective Repository Date:2018-04-23 (HP) 04/22/2018 LEONA Wilkinson Primary NOT GIVENUNK [place] [id number] [place] Insurance:SELF PAY Community [address] [place] [address] [place] [id number]: Number: Effective Repository Date:2018-04-22 ()
== END ==
LOC: LABSPEC 09-28 11:53
PROVIDERS: Family Provider Family Medicine; PCP Family Medicine; Referring Provider Surgery; Visit Provider Surgery
DX: R92.8 Other abnormal and inconclusive findings on diagnostic imaging of breast (principal)
CPT/HCPCS: 88305

== ENCOUNTER 2019-02-14 16:30 | Emergency (ER) | payer SELFPAY ==
[2019-02-14 16:37] VITALS: BP 124/67; PULSE 85; RESP 18; TEMP 36.6; O2SAT 99; BMI 27.1
--- NOTE | 2019-02-14 16:56 | ED.VISSUMM ---
- ER Visit Summary Date of Service: 02/14/19 Chief Complaint: Nasal wound History of Present Illness: The patient is a 23 F with history of MRSA cellulitis requiring hospitalization and IV antibiotics in the past. Patient states since that time she will occasionally get sores in her nose that usually resolve within 24 hours. She noted a sore in her left nare 3 days ago. Nose is swollen and still sore. She has not noted fever. Physical Examination: Vital signs unremarkable. Patient is afebrile. Head and neck examination was minimal edema to her nose. No erythema or sign of cellulitis. There is mild inflammation of the turbinates bilaterally. There is a small wound to the lateral wall of the left nare. No drainage at this time. Remainder of exam is normal. Test Results: [] Emergency Department Course and Treatment: Patient will be given Bactroban ointment to apply to the left nare. For any worsening symptoms she is to return immediately. Treatment Plan: [] Disposition: Discharge Impression: Nasal wound with history of MRSA Addendum: Prior to the patient being discharged she asked to have her urine checked that she was started to have some mild dysuria. Urinalysis shows no sign of acute infection at this time. This note was generated with [employer] dictation software. It may contain incorrect words, spelling, and punctuation that were not noted in review of the chart prior to signing ED Disposition - Plan for ED Patient: Disposition: Home or Assisted Living Instructions: ED Wound Care Prescriptions: Mupirocin Calcium [Bactroban Nasal] 0.5 gm NS BID #1 tube Referrals: Ty Krause MD [Primary Care Provider] - 1 Week if not improving
[2019-02-14] MEDS: Mupirocin Ointment 22gm Tube 1 APPLIC NASAL (17:13)
[2019-02-14 17:36] LABS: Mucous, Urine 0 SEEN /hpf (<or=2+); Red Blood Cells-Urine 0 SEEN /hpf (0-5)
[2019-02-14 17:47] LABS: Color, Urine Yellow (Yellow); Glucose, Dipstick Normal (Normal); Ketone-Dipstick Negative (Negative); Leukocyte Esterase-Dipstick 25 /ul (Negative); Nitrite-Dipstick Negative (Negative); Occult Blood-Urine Negative /ul (Negative); Protein-Dipstick Negative (Negative); Specific Gravity, Urine 1.025 (1.002-1.030); Urine Bilirubin Dipstick Negative (Negative); Urine Clarity Sl. Cloudy (Clear); Urine Urobilinogen Normal (Normal)
[2019-02-14 17:58] LABS: Bacteria RARE /hpf (None Seen); Squamous Epithelial Cells - UA 0-5 SEEN /hpf (5-10); White Blood Cells 0-5 SEEN /hpf (0-5)
[2019-02-14 18:11] VITALS: PULSE 80; RESP 16; O2SAT 97
== END 2019-02-14 18:12 | disposition home or self-care (01) ==
PROVIDERS: Emergency Provider Emergency Medicine; Family Provider Family Medicine; PCP Family Medicine
DX: S01.20XA Unspecified open wound of nose, initial encounter (principal); X58.XXXA Exposure to other specified factors, initial encounter; Y93.9 Activity, unspecified; Y92.9 Unspecified place or not applicable; Y99.9 Unspecified external cause status; R30.0 Dysuria; Z86.14 Personal history of Methicillin resistant Staphylococcus aureus infection
CPT/HCPCS: 81001; 99283

== ENCOUNTER → 2023-06-13 | Outpatient (CLI) | payer MEDICAID, SELFPAY | END | disposition home or self-care (01) | PROVIDERS: PCP Family Medicine; Referring Provider Physician Assistant Surgical; Visit Provider Physician Assistant Surgical | DX: J42 Unspecified chronic bronchitis (principal) | CPT/HCPCS: 87070; 87205 ==

== ENCOUNTER 2023-09-10 21:53 | Emergency (ER) | payer SELFPAY ==
[2023-09-10 21:54] VITALS: BP 119/74; PULSE 83; RESP 15; TEMP 37.1; O2SAT 100; BMI 28.8
--- NOTE | 2023-09-10 23:22 | EDS_ITS ---
HPI History of Present Illness Chief Complaint: General Illness Informant: patient Onset/Context/Timing Onset: Today Context: Sudden Onset Timing: Continuous Quality: Aching Location: Generalized Worsened by: Nothing Relieved by: Nothing Narrative Narrative: Patient presents with cough, congestion, fevers, and chills that began today. Patient states it began rather suddenly today. Patient states she felt fine yesterday. Patient states she feels aching all over. Patient states nothing makes her symptoms better nothing makes them worse. Patient admits to bilateral ear pain. Patient also admits to a sore throat. Patient admits to a cough with some clear sputum. Patient states she is concerned that she had pneumonia in April and it took her 2 months to get over it. Patient is concerned that she may have pneumonia again. [facility] Medical History Cellulitis of the left lateral thigh Pneumonia Tongue tie Home Medications styles root PO 06/13/23 [History Last Taken Unknown] ibuprofen 200 mg tablet (IBU-200) 200 mg PO Q6H PRN 06/13/23 [History Last Taken Unknown] ipratropium 0.5 mg-albuterol 3 mg (2.5 mg base)/3 mL nebulization soln 3 ml inhalation 6XD #90 mL 06/13/23 [Rx Last Taken Unknown] lung tonic PO 06/13/23 [History Last Taken Unknown] meloxicam 15 mg tablet 15 mg PO DAILY #30 tabs 06/13/23 [Rx Last Taken Unknown] tizanidine 2 mg capsule (Zanaflex) 2 mg PO TID PRN muscle spasticity #30 caps 06/13/23 [Rx Last Taken Unknown] Allergy/AdvReac Type Severity Reaction Status Date / Time fluticasone Allergy Hives Verified 09/10/23 21:59 [From Flovent Diskus] milk AdvReac abdominal Verified 09/10/23 21:59 pain Family History (Updated 06/13/23 @ 16:12 by Stacy Goldsmith) Mother Lung cancer 42 year old Alcoholism Father Heart disease Hypertension Surgical History History of sinus surgery History of tonsillectomy Social History Smoking Status: Never smoker ROS ROS ED Constitutional Constitutional ED: Reports chills, fever(s) and subjective Eyes Eyes: Denies blurry vision or change in vision ENT ENT ED: Reports ear pain bilateral and sore throat Cardiovascular Cardiovascular: Reports chest pain; Denies palpitations Respiratory/Chest Respiratory/Chest: Reports cough; Denies dyspnea Gastrointestinal Gastrointestinal: Denies nausea or vomiting Genitourinary Genitourinary ED: Denies dysuria or hematuria Musculoskeletal Musculoskeletal: Reports myalgias; Denies neck pain Integumentary Denies abscess or rash Neurologic Neurologic: Denies headache(s) or weakness Allergic/Immunologic Allergic/Immunologic ED: Denies mouth swelling or urticaria EXAM Physical Exam Const Vital Signs: 09/10/23 21:54 Temperature 98.8 F Temperature Source Oral Pulse Rate 83 Respiratory Rate 15 Blood Pressure 119/74 Blood Pressure Mean 89 Pulse Ox 100 Oxygen Delivery Method Room Air Positive well nourished and well developed General Appearance ED: well developed and NAD HEENT Reports moist mucous membranes Neck supple and no JVD Resp normal respiratory effort and clear to auscultation bilaterally Cardio regular rate and regular rhythm GI non-tender and non-distended Palpation: soft Neuro oriented x3, CN's II-XII intact bilaterally and no sensory deficits noted Sensorium / Orientation: alert Motor Exam: strength 5/5 throughout Psych mental status grossly normal MDM MDM MDM Narrative Medical decision making narrative: Differential diagnosis includes pneumonia, COVID-19 infection, influenza infection, and viral upper respiratory infection. Chest x-ray will be obtained to assess for pneumonia. COVID-19 rapid antigen will be obtained to assess for COVID-19 infection. Influenza A and influenza B antigens will be obtained to assess for influenza infection. Lab Data Lab results narrative: COVID-19 rapid antigen was reviewed and was negative. Influenza A and influenza B antigens were reviewed and were negative. Radiography Chest X-Ray - ED: 2 View, Read by ED Physician, Read by Radiologist and No Acute Disease Diagnostic Testing: Clinical Impression(s) from Imaging Studies Chest X-Ray 09/10/23 23:30 IMPRESSION: No acute pulmonary disease. Electronically Signed: Mike Paul MD at 23:43 EST , [place] and lateral chest x-ray was obtained. There are 2 views. On my independent interpretation, lung ramírez are clear. There is normal cardiac silhouette. Bony thorax is normal. There is no acute process noted. Radiologist also interpreted the x-ray and agrees. Treatment and Re-Evaluation :: Patient was advised of her findings. Patient was instructed to drink plenty of fluids. Patient was instructed to take Tylenol or ibuprofen as needed for any pain or fevers. Patient was instructed to follow-up with her primary care physician in 5 to 7 days for reevaluation. Patient understood and was agreeable with the plan. All questions were answered. Discharge Plan Triage Chief Complaint: General Illness ED Provider: Frantz Sibley Dx/Rx/DC Orders Clinical Impression: Viral upper respiratory tract infection Instructions: ED URI, Viral, No Abx (Adult) Prescriptions: No Action ibuprofen [IBU-200] 200 mg tablet 200 mg PO Q6H PRN lung tonic PO styles root PO tizanidine [Zanaflex] 2 mg capsule 2 mg PO TID PRN (Reason: muscle spasticity) Qty: 30 0RF ipratropium-albuterol 0.5 mg-3 mg(2.5 mg base)/3 mL solution for nebulization 3 ml inhalation 6XD Qty: 90 0RF meloxicam 15 mg tablet 15 mg PO DAILY Qty: 30 0RF Primary Care Provider: Ketan Soliz Referrals: Ketan Soliz DO [Primary Care Provider] - 5-7 Days Disposition Disposition: Home, Self Care
--- NOTE | 2023-09-10 23:30 | RAD_ITS ---
INDICATION: Cough EXAMINATION: Frontal and lateral views of the chest. COMPARISON: None. FINDINGS: Frontal and lateral views of the chest were obtained. The cardiac silhouette is not enlarged. No confluent airspace disease. No pleural effusion or pneumothorax. RAD/Chest PA and Lateral IMPRESSION: No acute pulmonary disease. Electronically Signed: Mike Paul MD at 23:43 EST ,
== END 2023-09-11 01:00 | disposition home or self-care (01) ==
PROVIDERS: Emergency Provider Emergency Medicine; PCP Student in an Organized Health Care Education/Training Program; Visit Provider Emergency Medicine
DX: J06.9 Acute upper respiratory infection, unspecified (principal); H92.03 Otalgia, bilateral; Z11.52 Encounter for screening for COVID-19
CPT/HCPCS: 71046; 87428; 99282